=== PATIENT | female | born 1980 | race Caucasian/White ===

== ENCOUNTER 2024-07-11 16:27 | Emergency (ER) | payer OTHER, SELFPAY ==
[2024-07-11 16:38] VITALS: BP 121/94; PULSE 110; TEMP 37.1; O2SAT 99; BMI 35.2
--- NOTE | 2024-07-11 16:42 | XR_ITS ---
The [address] [address] Patient Name: LIAM ESCOBAR MRN: [id number] date: 1980 Sex: F Assigned Patient Location: ER Current Patient Location: ED.MAIN Accession/Order Number: [id number] Exam Date: 07/11/2024 16:50 Report Date: 07/11/2024 17:31 At the request of: RAMANDEEP PAYTON Procedure: XR toe RT min 2V EXAM: XR toe RT min 2V HISTORY: infection COMPARISON: None. TECHNIQUE: 3 views of the right great toe FINDINGS: No acute fracture seen. Joint alignment is normal. Joint spaces are preserved. Soft tissue swelling is seen about the right great toe. No significant soft tissue gas is seen. No definite radiographic evidence for osteomyelitis is seen. However, please note MRI is more sensitive for detection of osteomyelitis. XR/XR toe RT min 2V IMPRESSION: No acute fracture. Soft tissue swelling is seen about the right great toe. No significant soft tissue gas is seen. No definite radiographic evidence for osteomyelitis is seen. However, please note MRI is more sensitive for detection of osteomyelitis. Electronically authenticated by: KRYSTIAN PALAFOX Date: 07/11/2024 17:31
--- NOTE | 2024-07-11 17:34 | ED.GENADUL1 ---
HPI HPI - General Adult General Chief complaint: Wound/Laceration Stated complaint: POSS INFECTED TOE Time Seen by Provider: 07/11/24 16:33 Source: patient Mode of arrival: walk-in Limitations: no limitations History of Present Illness HPI narrative: 44-year-old female presents here with a chief complaint of infected right great toe. Patient was cutting her toenails last week and excellently cut the tip of her toe with her sister. Patient's right toe is red and infected. She does have a podiatry appointment scheduled for the of this month. She denies any fevers or chills. She is type II diabetic. Mild purulent drainage is noted from the area. Related Data Home Medications ?Medication ?Instructions ?Recorded ?Confirmed Wellbutrin 07/11/24 cariprazine 1.5 mg capsule 1.5 mg PO DAILY 07/11/24 07/11/24 (Vraylar) empagliflozin 25 mg tablet 25 mg PO DAILY 07/11/24 07/11/24 (Jardiance) lisinopril 10 1 tab PO DAILY 07/11/24 07/11/24 mg-hydrochlorothiazide 12.5 mg tablet metformin 500 mg tablet 500 mg PO BID 07/11/24 07/11/24 methadone 10 mg tablet 20 mg PO DAILY 07/11/24 07/11/24 Previous Rx's ?Medication ?Instructions ?Recorded cephalexin 500 mg capsule 500 mg PO TID 10 days #30 caps 07/11/24 ibuprofen 800 mg tablet 800 mg PO Q8H PRN pain #30 tabs 07/11/24 Allergies Allergy/AdvReac Type Severity Reaction Status Date / Time amoxicillin (From Amoxil) Allergy Anaphylaxis Verified 07/11/24 16:34 codeine Allergy Hives Verified 07/11/24 16:34 Opioid HPI Opioid Management Most Recent Opioid Data: No Data to Display Review of Systems ROS Narrative All Systems are negative except as noted/marked.All systems reviewed and otherwise negative PFSH PFSH Social History Little interest or pleasure in doing things: not at all Feeling down, depressed, or hopeless: not at all Exam Narrative Exam Narrative: Nurses note and vital signs reviewed and patient is not hypoxic. General: The patient appears well and in no apparent distress. Patient is resting comfortably on cart. Skin: Warm, dry, no pallor noted. There is no rash noted. Head: Normocephalic, atraumatic Eye: Normal conjunctiva, no drainage, EOMI. PERRL Ears, Nose, Mouth, and Throat: oral mucosa is moist. Nares patent. Mouth without vesicles. Ear canals patent. Tm's without Erythema Musculoskeletal: redness, swelling infected ingrown nail to right great toe, mild purulent drainage. The patient has no evidence of calf tenderness, no pitting edema, symmetrical pulses noted bilaterally Neurological: A&O x4, normal speech Psychiatric: Cooperative Constitutional Vital Signs, click to edit/add: Last Vital Signs Temp 98.8 F 07/11/24 16:38 Pulse 110 H 07/11/24 16:38 Resp 16 07/11/24 16:38 BP 121/94 H 07/11/24 16:38 Pulse Ox 99 07/11/24 16:38 O2 Del Method Room Air 07/11/24 16:38 Course Vital Signs Vital signs: Vital Signs Temperature 98.8 F 07/11/24 16:38 Pulse Rate 110 H 07/11/24 16:38 Respiratory Rate 16 07/11/24 16:38 Blood Pressure 121/94 H 07/11/24 16:38 Pulse Oximetry 99 07/11/24 16:38 Oxygen Delivery Method Room Air 07/11/24 16:38 Temperature 98.8 F 07/11/24 16:38 Pulse Rate 110 H 07/11/24 16:38 Respiratory Rate 16 07/11/24 16:38 Blood Pressure 121/94 H 07/11/24 16:38 Pulse Oximetry 99 07/11/24 16:38 Oxygen Delivery Method Room Air 07/11/24 16:38 Medical Decision Making [facility] Narrative Medical decision making narrative: Patient presented here with a chief complaint of a infected right great toe as well as paronychia. Patient was cutting her toenails last week and excellently cut the tip of her toenail. Purulent drainage was noted. X-rays were performed and showed no acute air. I was able to incise and drain the toe. Right great toe was anesthetized 1% lidocaine solution locally, small incision made with an 11 blade, purulent drainage was then expressed out of the area. Wound was vigorously cleaned irrigated with Hibiclens normal saline dressing was applied by nursing staff. Patiently placed on Keflex. Follow-up with her podiatry as scheduled on the 12th of this month. Patient agrees with plan of care. Differential Diagnosis Differential Diagnosis: cellulitis, paronychia, Medical Records Medical records reviewed: Yes I reviewed the patient's medical records Imaging Data toe: Radiologist's impression: ITS Impressions Toe X-Ray 07/11/24 16:42 IMPRESSION: No acute fracture. Soft tissue swelling is seen about the right great toe. No significant soft tissue gas is seen. No definite radiographic evidence for osteomyelitis is seen. However, please note MRI is more sensitive for detection of osteomyelitis. Electronically authenticated by: KRYSTIAN PALAFOX Date: 07/11/2024 17:31 Discharge Plan Discharge Chief Complaint: Wound/Laceration Clinical Impression: Abscess Patient Disposition: Home, Self-Care Time of Disposition Decision: 17:32 Condition: Good Prescriptions / Home Meds: New ibuprofen 800 mg tablet 800 mg PO Q8H PRN (Reason: pain) Qty: 30 0RF cephalexin 500 mg capsule 500 mg PO TID 10 Days Qty: 30 0RF No Action metformin 500 mg tablet 500 mg PO BID Jardiance 25 mg tablet 25 mg PO DAILY lisinopril-hydrochlorothiazide 10-12.5 mg tablet 1 tab PO DAILY Patient Comments: uncertain of dose Vraylar 1.5 mg capsule 1.5 mg PO DAILY Patient Comments: uncertain of dose Wellbutrin Rx Instructions: 150MG in the morning, 100mg at night methadone 10 mg tablet 20 mg PO DAILY Print Language: Vietnamese Instructions: Abscess (ED) Additional Instructions: follow up with Podiatry as schedued Referrals: Physician,Non-Staff, MD [Primary Care Provider] - 1 week
[2024-07-11] MEDS: ADACEL DIPH,PERTUSS(ACELL),TET VAC/PF 0.5 ML ADULT SYRINGE IM (17:38)
[2024-07-11] MEDS: LIDOCAINE HCL 1% 100 MG/10 ML MDV INJ (17:39)
== END 2024-07-11 17:52 | disposition home or self-care (01) ==
PROVIDERS: Emergency Provider Emergency Medicine
DX: L60.0 Ingrowing nail (principal); L03.031 Cellulitis of right toe; E11.9 Type 2 diabetes mellitus without complications; Z79.84 Long term (current) use of oral hypoglycemic drugs; Z23 Encounter for immunization
CPT/HCPCS: 10060; 73660; 87070; 87075; 90471; 90715; 99284

== ENCOUNTER 2024-08-30 07:35 | Outpatient (OUT) | payer OTHER, SELFPAY ==
--- OUTSIDE RECORDS SUMMARY | 2024-08-30 07:39 | XMS_ITS | CCD ---
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 H BQB #### [facility] [address] Reference Lab Test Reference Range Comment Normal . [facility] ([place]) Comment on above: Result Comment: The reportable range for this assay is 10 IU/mL to 1 billion IU/mL. Performed at: [facility] [employer] [id number] Rn Traveling: Naomi Croft MD, Phone: [phone] Performed By: #### H BQB #### [facility] [address] HBV e Ab SerPl Ql 01-17 HBV e Ab IA Ql Negative Normal Negative [facility] ([place]) Comment on above: Result Comment: Perf ormed at: [facility] [employer] [id number] Rn Traveling: Johnathon Neville PhD, Phone: [phone] Performed By: #### 1 3953-5 #### [facility] [address] HBV e Ag SerPl Ql IA01-17 HBV e Ag IA Ql Negative Normal Negative [facility] ([place]) Comment on above: Result Comment: Perf ormed at: [facility] [id number] Rn Traveling: Johnathon Neville PhD, Phone: [phone] Performed By: #### P TINR #### [facility] [address] [place], [place] [id number] HCV Genotyping Non Reflexon 01-03-2022 HCV genotype PARIS+probe Nom 1a Normal . [facility] ([place]) Comment on above: Performed By: #### P TINR #### [facility] [address] [place], [place] [address] Please note: Comment Normal . [facility] ([place]) Comment on above: Result Comment: This test was developed and its performance characteristics determined by [employer]. It has not been cleared or approved by the U.S. Food and Drug Administration. The FDA has determined that such clearance or approval is not necessary. This test is used for clinical purposes. It should not be regarded as investigational or for research. Performed at: [facility] [id number] Rn Traveling: Naomi Croft MD, Phone: [phone] Performed By: #### P TINR #### [facility] [address] [place] [address] HBV core Ab SerPl Ql IAon HBV core Ab IA Ql Positive Abnormal Negative [facility] ([place]) Comment on above: Result Comment: Perf ormed at: - [facility] [id number] Rn Traveling: Johnathon Neville PhD, Phone: [phone] Performed By: #### 1 3952-7 #### [facility] [address] HBV surface Ab Ser Qlon 12-05 HBV surface Ab Ql (S) Reactive Normal . [facility] ([place]) Comment on above: Result Comment: Non Reactive: Inconsistent with immunity, less than 10 mIU/mL Reactive: Consistent with immunity, greater than 9.9 mIU/mL Performed at: [address] [id number] Rn Traveling: Johnathon Neville PhD, Phone: [phone] Performed By: #### 2 2322-2 #### [address] [address] HCV Ab Ser Qlon 12-31-2021 HCV Ab Ql (S) >11.0 Abnormal 0.0-0.9 [facility] ([place]) Comment on above: Result Comment: Nega tive: < 0.8 Indeterminate: 0.8 - 0.9 Positive: > 0.9 HCV antibody alone does not differentiate between previous resolved infection and active infection. The CDC and current clinical guidelines recommend that a positive HCV antibody result be followed up with an HCV RNA test to support the diagnosis of acute HCV infection. [facility] offers Hepatitis C Virus (HCV) RNA, Diagnosis, PARIS (334505) and Hepatitis C Virus (HCV) Antibody with reflex to Quantitative Real-time PCR (271687). Performed at: [address] [id number] Rn Traveling: Johnathon Neville PhD, Phone: [phone] Performed By: #### 1 6128-1 #### [address] [address] HCV RT-PCR Quant (Non-Graph) on 12-31-2021 HCV RNA PARIS+probe [Log units/Vol] 5.[address] [facility] ([place]) Comment on above: Result Comment: Resu lt Units: log10 IU/mL Performed By: #### P TINR #### [facility] [address] [place], [place] [address] (480) HCV RNA PARIS+probe Qn 977259 IU/mL Normal . [facility] ([place]) Comment on above: Performed By: #### P TINR #### [facility] [address] [place] [address] Test performance information Steven (Unsp spec) Comment Normal . [facility] ([place]) Comment on above: Result Comment: The quantitative range of this assay is 15 IU/mL to 100 million IU/mL. Performed at: [facility] [employer] [id number] Rn Traveling: Naomi Croft MD, Phone: [phone] Performed By: #### P TINR #### [facility] [address] [place], [place] [address] HIV Ab/p24 Ag w/ Rflx [id number] on 12-31-2021 HIV 1+2 Ab+HIV1 p24 Ag IA Ql Non-Reactive Normal Non Reactive [facility] ([place]) Comment on above: Result Comment: HIV Negative HIV-1/HIV-2 antibodies and HIV-1 p24 antigen were NOT detected. There is no laboratory evidence of HIV infection. Performed at: [facility] [employer] [phone] Rn Traveling: Johnathon Neville PhD, Phone: [phone] Performed By: #### H IV #### [address] [address] Hep B Surface Antigenon 12-05 HBV surface Ag IA Ql Negative Normal Negative [facility] ([place]) Comment on above: Result Comment: Perf ormed at: [facility] [employer] [id number] Rn Traveling: Johnathon Neville PhD, Phone: [phone] Performed By: #### H BSAGA #### [address] [address] ALT (SGPT) ser/plason 2021 ALT [Catalytic activity/Vol] 50 U/L 10-54 [facility] Work Phone: Absolute lymphocyte counton 12-30-2021 Lymphocytes Auto (Unsp spec) [#/Vol] 3.5 10*3/uL 1.10-4.80 [facility] Work Phone: Albumin [Mass/volume] in Ser um or Plasmaon 12-30-2021 Albumin [Mass/Vol] 3.9 g/dL 3.4-4.8 [facility] Work Phone: Albumin/Globulin [Mass Ratio ] in Serum or Plasmaon 12-30-2021 Albumin/Globulin [Mass ratio] 0.9 {ratio} 1.1-2.2 [facility] Work Phone: Alkaline phosphatase [Enzyma tic activity/volume] in Serum or Plasmaon 12-30-2021 ALP [Catalytic activity/Vol] 106 U/L 42-121 [facility] Work Phone: Aspartate aminotransferase [ Enzymatic activity/volume] in Serum or Plasmaon 12-30-2021 AST [Catalytic activity/Vol] 53 U/L 10-41 [facility] Work Phone: Basophils Auto (Bld) [#/Vol] on 12-30-2021 Basophils (Bld) [#/Vol] 0.1 10*3/uL 0.00-0.20 [facility] Work Phone: Basophils/100 WBC Auto (Bld) on 12-30-2021 Basophils/100 WBC (Bld) 1.0 % 0.0-1.5 [facility] Work Phone: Bilirubin.total [Mass/volume ] in Serum or Plasmaon 12-30-2021 Bilirubin [Mass/Vol] 0.9 mg/dL 0.3-1.5 [facility] Work Phone: Blood prothrombin time (PT) by coagulation assayon 12-30-2021 PT Coag (Bld) [Time] 13.0 s 9.5-12.9 [facility] Work Phone: CBC W Auto Differential pane l (Bld)on 12-30-2021 Basophils (Bld) [#/Vol] 0.1 10*3/uL Normal 0.00-0.20 [facility] ([place]) Comment on above: Performed By: #### 5 7021-8 #### [facility] [address] [place] [address] Basophils/100 WBC (Bld) 1.0 % Normal 0.0-1.5 [facility] ([place]) Comment on above: Performed By: #### 5 7021-8 #### [facility] [address] [place] [address] CBC W Ordered Manual Differential panel (Bld) NO Normal [facility] ([place]) Comment on above: Performed By: #### 5 7021-8 #### [facility] [address] [place] [address] Eosinophils (Bld) [#/Vol] 0.2 10*3/uL Normal 0.00-0.33 [facility] ([place]) Comment on above: Performed By: #### 5 7021-8 #### [facility] [address] [place] [address] Eosinophils/100 WBC (Bld) 2.3 % Normal 0.0-3.0 [facility] ([place]) Comment on above: Performed By: #### 5 7021-8 #### [facility] [address] [place] [address] Erythrocyte distribution width (RBC) [Ratio] 14.6 % High 10.9-14.3 [facility] ([place]) Comment on above: Performed By: #### 5 7021-8 #### [facility] [address] [place] [address] Hematocrit (Bld) [Volume fraction] 40.6 % Normal 36.0-44.0 [facility] ([place]) Comment on above: Performed By: #### 5 7021-8 #### [facility] [address] [place] [address] Hemoglobin (Bld) [Mass/Vol] 13.5 g/dL Normal 12.0-15.0 [facility] ([place]) Comment on above: Performed By: #### 5 7021-8 #### [facility] [address] [place] [address] Lymphocytes Auto (Unsp spec) [#/Vol] 3.5 10*3/uL Normal 1.10-4.80 [facility] ([place]) Comment on above: Performed By: #### 5 7021-8 #### [facility] [address] [place] [address] Lymphocytes/100 WBC (Bld) 36.9 % Normal 24.0-44.0 [facility] ([place]) Comment on above: Performed By: #### 5 7021-8 #### [address] [address] MCH (RBC) [Entitic mass] 25.8 pg Low 28.0-34.0 [facility] ([place]) Comment on above: Performed By: #### 5 7021-8 #### [address] [address] MCHC (RBC) [Mass/Vol] 33.1 g/dL Normal 33.0-37.0 [facility] ([place]) Comment on above: Performed By: #### 5 7021-8 #### [address] [address] MCV (RBC) [Entitic vol] 77.9 fL Low 80.0-100.0 [facility] ([place]) Comment on above: Performed By: #### 5 7021-8 #### [facility] [address] [place] [address] Monocytes (Bld) [#/Vol] 0.6 10*3/uL Normal 0.20-0.70 [facility] ([place]) Comment on above: Performed By: #### 5 7021-8 #### [address] [address] Monocytes/100 WBC (Bld) 6.3 % Normal 3.4-9.0 [facility] ([place]) Comment on above: Performed By: #### 5 7021-8 #### [address] [address] Neutrophils (Bld) [#/Vol] 5.1 10*3/uL Normal 1.83-8.70 [facility] ([place]) Comment on above: Performed By: #### 5 7021-8 #### [address] [address] Neutrophils/100 WBC (Bld) 53.5 % Normal 40.0-74.0 [facility] ([place]) Comment on above: Performed By: #### 5 7021-8 #### [facility] [address] [place] [address] Platelet mean volume (Bld) [Entitic vol] 9.5 fL Normal 7.4-10.4 [facility] ([place]) Comment on above: Performed By: #### 5 7021-8 #### [facility] [address] [place] [address] Platelets (Bld) [#/Vol] 181 10*3/uL Normal 150-450 [facility] ([place]) Comment on above: Performed By: #### 5 7021-8 #### [facility] [address] [place] [address] RBC (Bld) [#/Vol] 5.21 10*6/uL High 4.00-4.90 [facility] ([place]) Comment on above: Performed By: #### 5 7021-8 #### [address] [address] WBC (Bld) [#/Vol] 9.6 10*3/uL Normal 4.5-11.0 [facility] ([place]) Comment on above: Performed By: #### 5 7021-8 #### [address] [address] Carbon dioxide, total [Moles /volume] in Serum or Plasmaon 12-30-2021 CO2 [Moles/Vol] 26 mmol/L [facility] Work Phone: Chloride [Moles/volume] in S sim or Plasmaon 12-30-2021 Chloride [Moles/Vol] 94 mmol/L 98-107 [facility] Work Phone: Comprehensive metabolic 2000 panelon 12-30-2021 Albumin [Mass/Vol] 3.9 g/dL Normal 3.4-4.8 [facility] ([place]) Comment on above: Performed By: #### 2 4323-8 #### [facility] [address] [place] [address] Albumin/Globulin [Mass ratio] 0.9 {ratio} Low 1.1-2.2 [facility] ([place]) Comment on above: Performed By: #### 2 4323-8 #### [facility] [address] [place] [address] ALP [Catalytic activity/Vol] 106 U/L Normal 42-121 [facility] ([place]) Comment on above: Performed By: #### 2 4323-8 #### [facility] [address] [place] [address] ALT [Catalytic activity/Vol] 50 U/L Normal 10-54 [facility] ([place]) Comment on above: Performed By: #### 2 4323-8 #### [facility] [address] [place] [address] Anion gap [Moles/Vol] 9.0 mmol/L Normal 3-11 [facility] ([place]) Comment on above: Performed By: #### 2 4323-8 #### [facility] [address] [place] [address] AST [Catalytic activity/Vol] 53 U/L High 10-41 [facility] ([place]) Comment on above: Performed By: #### 2 4323-8 #### [facility] [address] [place] [address] Bilirubin [Mass/Vol] 0.9 mg/dL Normal 0.3-1.5 [facility] ([place]) Comment on above: Performed By: #### 2 4323-8 #### [facility] [address] [place] [address] Calcium [Mass/Vol] 9.0 mg/dL Normal 8.5-10.5 [facility] ([place]) Comment on above: Performed By: #### 2 4323-8 #### [address] [address] Chloride [Moles/Vol] 94 mmol/L Low 98-107 [facility] ([place]) Comment on above: Performed By: #### 2 4323-8 #### [address] [address] CO2 [Moles/Vol] 26 mmol/L Normal 21-31 [facility] ([place]) Comment on above: Performed By: #### 2 432-8 #### [address] [address] Creatinine [Moles/Vol] 0.7 mg/dL Normal 0.4-1.0 [facility] ([place]) Comment on above: Performed By: #### 2 4322-8 #### [address] [address] Creatinine and Glomerular filtration rate.predicted panel (S/P/Bld) 111 mL/min Normal >60 [facility] ([place]) Comment on above: Performed By: #### 2 4323-8 #### [address] [address] GFR/1.73 sq M.predicted among non-blacks MDRD (S/P/Bld) [Vol rate/Area] 92 mL/min/{1.73_m2} Normal >60 [facility] ([place]) Comment on above: Performed By: #### 2 4323-8 #### [address] [address] Globulin (S) [Mass/Vol] 4.2 g/dL High 1.9-3.9 [facility] ([place]) Comment on above: Performed By: #### 2 4323-8 #### [facility] [address] [place] [address] Glucose [Mass/Vol] 329 mg/dL High 70-99 [facility] ([place]) Comment on above: Performed By: #### 2 4323-8 #### [facility] [address] [place] [address] Potassium [Moles/Vol] 3.4 mmol/L Low 3.6-5.0 [facility] ([place] Comment on above: Performed By: #### 2 4323-8 #### [facility] [address] [place] [address] Protein [Mass/Vol] 8.1 g/dL High 5.9-7.8 [facility] ([place]) Comment on above: Performed By: #### 2 4323-8 #### [facility] [address] [place] [address] Sodium [Moles/Vol] 129 mmol/L Low 135-145 [facility] ([place] Comment on above: Performed By: #### 2 4323-8 #### [facility] [address] [place] [address] Urea nitrogen [Mass/Vol] 6 mg/dL Low 8-21 [facility] ([place] Comment on above: Performed By: #### 2 4323-8 #### [facility] [address] [place] [address] Creatinine and Glomerular fi ltration rate.predicted panel (S/P/Bld)on 12-30-2021 GFR/1.73 sq M.predicted MDRD (S/P/Bld) [Vol rate/Area] 111 mL/min/{1.73_m2} >60 [facility] Work Phone: Eosinophils Auto (Bld) [#/Vo l]on 12-30-2021 Eosinophils (Bld) [#/Vol] 0.2 10*3/uL 0.00-0.33 [facility] Work Phone: Eosinophils/100 WBC Auto (Bl d)on 12-30-2021 Eosinophils/100 WBC (Bld) 2.3 % 0.0-3.0 [facility] Work Phone: Erythrocyte distribution wid th Auto (RBC) [Ratio]on 12-30-2021 Erythrocyte distribution width (RBC) [Ratio] 14.6 % 10.9-14.3 [facility] Work Phone: Estimated glomerular filtrat ion rate (GFR) non- Americanon 12-30-2021 GFR/1.73 sq M.predicted among non-blacks MDRD (S/P/Bld) [Vol rate/Area] 92 mL/min/{1.73_m2} >60 [facility] Work Phone: Hematocrit Auto (Bld) [Volum e fraction]on 12-30-2021 Hematocrit (Bld) [Volume fraction] 40.6 % 36.0-44.0 [facility] Work Phone: Hemoglobin [Mass/volume] in Bloodon 12-30-2021 Hemoglobin (Bld) [Mass/Vol] 13.5 g/dL 12.0-15.0 [facility] Work Phone: Lymphocytes/100 WBC Auto (Bl d)on 12-30-2021 Lymphocytes/100 WBC (Bld) 36.9 % 24.0-44.0 [facility] Work Phone: MCH Auto (RBC) [Entitic mass ]on 12-30-2021 MCH (RBC) [Entitic mass] 25.8 pg 28.0-34.0 [facility] Work Phone: MCHC Auto (RBC) [Mass/Vol]on 12-30-2021 MCHC (RBC) [Mass/Vol] 33.1 g/dL 33.0-37.0 [facility] Work Phone: MCV (mean corpuscular volume ) determinationon 12-30-2021 MCV (RBC) [Entitic vol] 77.9 fL 80.0-100.0 [facility] Work Phone: Miscellaneous Batteryon 12-[address] [facility] ([place] Comment on above: Order Comment: HEP C VIRUS QUANT [id number] cpt 21619 Result Comment: INCO RRECT TEST Performed By: #### P TINR #### [address] [address] [facility] ([place] Comment on above: Order Comment: HEP C VIRUS QUANT [id number] cpt [id number] Result Comment: INCO RRECT TEST Performed By: #### P TINR #### [facility] [address] [place] [address] Result [facility] ([place]) Comment on above: Order Comment: HEP C VIRUS QUANT [id number] cpt [id number] Result Comment: INCO RRECT TEST Performed By: #### P TINR #### [address] [address] [address] [facility] ([place]) Comment on above: Order Comment: HEP C VIRUS QUANT [id number] cpt 20105 Result Comment: INCO RRECT TEST Performed By: #### P TINR #### [facility] [address] [place] [address] Monocytes Auto (Bld) [#/Vol] on 12-30-2021 Monocytes (Bld) [#/Vol] 0.6 10*3/uL 0.20-0.70 [facility] Work Phone: Monocytes/100 WBC Auto (Bld) on 12-30-2021 Monocytes/100 WBC (Bld) 6.3 % 3.4-9.0 [facility] Work Phone: Neutrophils Auto (Bld) [#/Vo l]on 12-30-2021 Neutrophils (Bld) [#/Vol] 5.1 10*3/uL 1.83-8.70 [facility] Work Phone: Neutrophils/100 WBC Auto (Bl d)on 12-30-2021 Neutrophils/100 WBC (Bld) 53.5 % 40.0-74.0 [facility] Work Phone: Platelet mean volume Auto (B ld) [Entitic vol]on 12-30-2021 Platelet mean volume (Bld) [Entitic vol] 9.5 fL 7.4-10.4 [facility] Work Phone: Platelet poor plasma interna tional normalized ratio (INR) by coagulation assay (relaton 12-30-2021 INR Coag (PPP) [Relative time] 1.17 {INR} 0.80-2.00 [facility] Work Phone: Platelets Auto (Bld) [#/Vol] on 12-30-2021 Platelets (Bld) [#/Vol] 181 10*3/uL 150-450 [facility] Work Phone: Potassium [Moles/volume] in Serum or Plasmaon 12-30-2021 Potassium [Moles/Vol] 3.4 mmol/L 3.6-5.0 [facility] Work Phone: Prothrombin Time INR w/o Cou mon 12-30-2021 INR Coag (PPP) [Relative time] 1.17 {INR} Normal 0.80-2.00 [facility] ([place]) Comment on above: Performed By: #### P TINR #### [facility] [address] [place] [address] PT Coag (Bld) [Time] 13.0 s High 9.5-12.9 [facility] ([place]) Comment on above: Performed By: #### P TINR #### [facility] [address] [place] [address] RBC Auto (Bld) [#/Vol]on RBC (Bld) [#/Vol] 5.21 10*6/uL 4.00-4.90 [facility] Work Phone: Serum globulin measurement ( mass/volume)on 12-30-2021 Globulin (S) [Mass/Vol] 4.2 g/dL 1.9-3.9 [facility] Work Phone: Serum glucose measurement (m ass/volume)on 12-30-2021 Glucose [Mass/Vol] 329 mg/dL 70-99 [facility] Work Phone: Serum or plasma anion gap de termination (moles/volume)on 12-30-2021 Anion gap [Moles/Vol] 9.0 mmol/L 3-11 [facility] Work Phone: Serum or plasma calcium genna urement (mass/volume)on 12-30-2021 Calcium [Mass/Vol] 9.0 mg/dL 8.5-10.5 [facility] Work Phone: Serum or plasma creatinine m easurement (moles/volume)on 12-30-2021 Creatinine [Moles/Vol] 0.7 mg/dL 0.4-1.0 [facility] Work Phone: Serum or plasma sodium measu rement (moles/volume)on 12-30-2021 Sodium [Moles/Vol] 129 mmol/L 135-145 [facility] Work Phone: Serum or plasma urea nitroge n measurement (mass/volume)on 12-30-2021 Urea nitrogen [Mass/Vol] 6 mg/dL 8-21 [facility] Work Phone: Total protein bloodon 2021 Protein [Mass/Vol] 8.1 g/dL 5.9-7.8 [facility] Work Phone: US abdomen limitedon [address] [facility] [address] [place] [address] Ultrasound Report Signed Patient: VIRGILIOVANITAAmrita Wong MR#: [id number] : 1980 Acct:[id number] Age/Sex: 41 / F Admit Date: 12/30/21 Loc: [facility] Attending Dr: Maria Esther Fregoso [employer] Ordering Physician: Maria Esther Fregoso NP Date of Service: 12/30/21 Procedure(s): US abdomen limited Accession Number(s): [id number] cc: Maria Esther Fregoso NP HISTORY: Hepatitis C PHYSICIAN INDICATIONS: B19.20 Hepatitits -C. B19.20 TECHNIQUE: Ultrasound images through the gallbladder. FINDINGS: The gallbladder is normal in size and appearance. There is no wall thickening or shadowing stones identified. Biliary tree is not dilated. Common bile duct measures 5.6 mm No adjacent fluid collections are noted. Liver is enlarged measuring 16 cm in length with normal echogenicity. IMPRESSION Ultrasound Gallbladder: 1. Unremarkable appearance of the gallbladder. No gallstones identified. 2. Mildly enlarged liver. In view of history, consider Elastography. Dictated By: Hank Farrar MD DD/ 9 Signed By: Hank Farrar MD 12/30/21719 Electrical Appliance Repairer: KEVEN Normal [facility] ([place]) WBC Auto (Bld) [#/Vol]on WBC (Bld) [#/Vol] 9.6 10*3/uL 4.5-11.0 [facility] Work Phone: ED.PDOCon 10-19-2020 ED.PDOC VALDEMAR ESCOBAR TI R Female [phone] Attending provider: [facility] [id number] Fabiana Yuen 1980 40 DOS: 10/19/20 Hx/Exam - History of Present Illness Chief Complaint: LEG PAIN Location: left leg Symptom Duration: 1 Symptom Duration: Week(s) Onset of Symptoms: acute Intensity: mild-moderate Quality: cramping Episode Frequency: constant Radiations: thigh to lower leg Symptoms Improve with: none Symptoms Worse with: none Assoc Sxs/Pertinent Hx: swelling, h/o chronic low back and sciatica Patient/Family Denies: fevers, trauma, weakness, parasthesias, abd pain,b/b incont,cp,sob Additional Comments: no h/o DVT/PE, no travel/immobilizatio n/surgery/hormone replacement. + smoker. 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 - Review of Systems All Other Systems: Pertinent Positives in HPI, All Other Systems Negative Constitutional: Denies: Fever, Chills, Sweats, Weakness, Malaise Respiratory: Denies: Cough, Shortness of Breath, Wheezing Cardiovascular: Denies: Chest Pain, Palpitations, Light Headedness Gastrointestinal: Denies: Nausea, Vomiting, Abdominal Pain, Diarrhea, Constipation, Melena, Hematochezia Genitourinary: Denies: Dysuria, Frequency, Urgency, Hematuria, Incontinence, Retention Musculoskeletal: Neck Pain (chronic), Back Pain (chronic), Leg Pain. Denies: Arm Pain Skin: Denies: Rash, Lesions, Jaundice, Laceration, Abrasion, Bruising Neurological: Denies: Headache, Weakness, Numbness, Incoordination, Change in Speech, Confusion, Seizures - Past Medical History ED PMH: Yes Migraine - Past Surgical History Surgical History: Yes Other (knee surgery) - Social History Smoking Status: Current every day smoker - Physical Exam General Appearance: awake, alert, no apparent distress Eyes: PERRL, EOMI, conjunctivae clear Head, Ears, Nose, and Throat: pharynx normal, mucous membranes moist Neck: supple, full ROM Respiratory: lungs clear, no wheezes/rhonchi/rale s, no respiratory distress, no accessory muscle use Cardiovascular: regular rate, rhythm, no murmur Abdomen/GI: non tender, soft, non-distended, normal bowel sounds, no organomegaly, no pulsatile mass, no peritoneal signs Extremity Location: L leg Extremity: normal range of motion, non-tender, no calf tenderness, normal capillary refill, swelling (1-2 + pitting edema bilateral lower legs) Pulses: Radial: 2+, Dorsalis Pedis: 2+ Neurologic: no motor/sensory deficits, normal gait, normal strength, normal sensation, speech clear/fluent Psychiatric: oriented x3, calm Skin Exam: warm/dry, normal color - Source of History Source of History: Nursing Notes/Vital Signs/Triage Reviewed and Agree Source of History: Old Medical Records Reviewed Note(s) - Physician Notes Additional Notes, See Orders for Details: 10/19/20 14:59 Exam/Proc: LOWER EXT DVT LEFT Dept: ULTRASOUND INDICATION: pain swelling,sent by [facility] for DVT r/o EXAM: US LOWER EXTREMITY VEINS LIMITED/UNILATERAL/F OLLOW UP COMPARISON: TECHNIQUE: High resolution grayscale, color and Doppler evaluation performed according to protocol. FINDINGS: Included portions of the common femoral, femoral, popliteal, peroneal, and posterior tibial veins are grossly patent. Anterior tibial vein not evaluated on this exam. Impression: 1. No evidence for deep venous thrombosis in the evaluated major veins. Electronically signed by: Mp Logan DO 10/19/2020 1:52 PM CDT REPORT SIGNATURE ON FILE Electronically Signed Date/Time: 10/19/20 1352 Dictated Date/time: 10/19/20 1352 10/19/20 14:59 Patient has no reproducible tenderness on the entire left leg. She does have some mild pitting edema but this is noted on bilateral lower extremities. I suspect likely she is having radiculopathy pain from her chronic low back pain and sciatica issues. She is currently on methadone for pain management. She is advised close follow-up with her primary physician in the next few days. Return precautions discussed. EKG - EKG EKG Interpretation: Not Applicable Discharge Screen - Discharge Discharge Problem: Left leg pain Disposition: HOME/SELF CARE Additional Instructions: close follow up with your doctor next few days. If the symptoms worsen or new symptoms develop return to the Emergency Department (ED) immediately. Call your doctor for additional questions. Condition: Good Instructions: DI for Leg Pain Referrals: provider (Unknown),Unlisted [NON STAFF] - Ceasar Stewart [ACTIVE] - 2-3 Days Dictated By: CROW Washburn Dictated Date/Time:10/19/20 1354 Electronically Signed Date/Time: 10/19/20 1501 [facility] LOWER EXT DVT LEFTon 021 LOWER EXT DVT LEFT VALDEMAR ESCOBAR TI R Female [id number] Ordering physician: Fabiana Yuen LOC:ER [id number] Attending physician: 1980 40 DO S: 10/19/20 Acc#: [id number] Exam/Proc: LOWER EXT DVT LEFT Dept: ULTRASOUND INDICATION: pain swelling,sent by STAT care for DVT r/o EXAM: US LOWER EXTREMITY VEINS LIMITED/UNILATERAL/F OLLOW UP COMPARISON: TECHNIQUE: High resolution grayscale, color and Doppler evaluation performed according to protocol. FINDINGS: Included portions of the common femoral, femoral, popliteal, peroneal, and posterior tibial veins are grossly patent. Anterior tibial vein not evaluated on this exam. Impression: 1. No evidence for deep venous thrombosis in the evaluated major veins. Electronically signed by: Mp Logan DO 10/19/2020 1:52 PM CDT REPORT SIGNATURE ON FILE Electronically Signed Date/Time: 10/19/20 1352 Dictated Date/time: 10/19/20 1352 CC: [facility] ED.PDOCon 09-09-2020 ED.PDOC VALDEMAR ESCOBAR TI R Female [id number] Attending provider: PRE ER ER [id number] Dallas Mendoza 1980 40 DOS: 09/09/20 Hx/Exam - History of Present Illness Chief Complaint: DENTAL PAIN Additional Comments: Patient presents for evaluation of left-sided facial pain. Patient recently had dental extractions. She reports that her stitch started getting pulled out. Her clipped th stitch causing her to fall into her mouth. Patient is currently complaining of pain. She completed her course of Percocet and is still complaining of pain. No new facial swelling, erythema, warmth, discharge. Denies any trismus, drooling. Patient states that this is an exacerbation of her Postoperative pain. - Review of Systems All Other Systems: Pertinent Positives in HPI, All Other Systems Negative - Past Medical History ED PMH: Yes Migraine - Past Surgical History Surgical History: Yes Other (knee surgery) Comments: DENTAL SURGERY - Social History Smoking Status: Current every day smoker Living Conditions: Family - Physical Exam General Appearance: awake, alert, no apparent distress Eyes: conjunctivae clear, no scleral icterus Head, Ears, Nose, and Throat: pharynx normal, mucous membranes moist, atraumatic, other (No external erythema, warmth, trismus, drooling. Beach is normal. Stitches dangling from left side of the upper maxillary molars) Neck: no stridor, full ROM Respiratory: lungs clear, no wheezes/rhonchi/rale s, no respiratory distress Cardiovascular: regular rate, rhythm, no murmur, no gallop Abdomen/GI: non tender, soft, non-distended Neurologic: speech clear/fluent Psychiatric: calm, normal affect Skin Exam: warm/dry, normal color - Source of History Source of History: Nursing Notes/Vital Signs/Triage Reviewed and Agree Note(s) - Physician Notes Additional Notes, See Orders for Details: 09/09/20 19:40 No signs of airway emergency. No signs of infection. There is a stitch hanging down. The area of the stitch that is going to the back of the patient's mouth was trimmed. Patient was advised that she she needs to call her surgeon as her appears to have cut the stitch in such a way that it is going to ultimately lead to falling out completely. Patient was given several tablets of pain medicine. Return precautions given bedside, discharge. EKG - EKG EKG Interpretation: Not Applicable Discharge Screen - Discharge Discharge Problem: Left facial pain Disposition: HOME/SELF CARE Additional Instructions: If the symptoms worsen or new symptoms develop return to the Emergency Department (ED) immediately. Call your doctor for additional questions. Condition: Good Instructions: DI for Dental Pain Forms: DENTAL PAIN, DENTAL SERVICES, CONT, DENTAL SERVICES Prescriptions: Oxycodone W/ APAP 5-325 mg [Percocet 5 mg/325 mg Ud] 1 tab PO Q6H PRN PRN #8 tab PRN Reason: Pain Prescription Printed Referrals: Ceasar Stewart [Family Provider] - 2-3 Days (Please call your surgeon and schedule follow-up of emergency department visit as soon as available) Dictated By: Dallas Mendoza MD Dictated Date/Time:09/09/201858 Electronically Signed Date/Time: 09/09/201939 [facility] Vital Signs Date Time Vital Sign Value Performing Clinician Facility 08-14-2024 13:48-0500 Body height 152.4 cm Noah Waller DPM Work Phone: [facility] 08-14-2024 13:48-0500 Body mass index (BMI) [Ratio] 36.13 kg/m2 Noah Waller DPM Work Phone: [facility] 08-14-2024 13:48-0500 Body weight 83.92 kg Noah Waller DPM Work Phone: [facility] 08-14-2024 13:48-0500 Respiratory rate 18 /min Noah Waller DPM Work Phone: [facility] 07-17-2024 15:37-0500 Body height 152.4 cm Noah Waller DPM Work Phone: [facility] 07-17-2024 15:37-0500 Body mass index (BMI) [Ratio] 36.13 kg/m2 Noah Waller DPM Work Phone: [facility] 07-17-2024 15:37-0500 Body weight 83.92 kg Noah Waller DPM Work Phone: [facility] 07-17-2024 15:37-0500 Respiratory rate 18 /min Noah Waller DPM Work Phone: [facility] 01-15-2024 08:37-0400 Diastolic blood pressure 80 mm[Hg] Pamela Dimare PRICING INTERN.FATBACK TRIMMER Work Phone: [facility] Comment on above: right arm 01-15-2024 08:37-0400 Systolic blood pressure 123 mm[Hg] Pamela Dimare PRICING INTERN.FATBACK TRIMMER Work Phone: [facility] Comment on above: right arm 01-15-2024 08:35-0400 Body height 152.4 cm Pamela Dimare PRICING INTERN.FATBACK TRIMMER Work Phone: [facility] 01-15-2024 08:35-0400 Body mass index (BMI) [Ratio] 37.8 kg/m2 Pamela Dimare PRICING INTERN.FATBACK TRIMMER Work Phone: [facility] 01-15-2024 08:35-0400 Body weight 87.8 kg Pamela Cleaning ROBINA.FATBACK TRIMMER Work Phone: [facility] 01-15-2024 08:35-0400 Heart rate 125 /min Pamela Cleaning PRICING INTERN.FATBACK TRIMMER Work Phone: [facility] 01-15-2024 08:35-0400 SaO2% (BldA) [Mass fraction] 98 % Pamela Cleaning PRICING INTERN.FATBACK TRIMMER Work Phone: [facility] Encounters Encounter Date Encounter Type Care Provider Facility Start: 08-14-2024 End: 08-14-2024 Bamboo flowsheet Noah Waller DPM Work Phone: [facility] Start: 08-14-2024 End: 08-14-2024 Bamboo flowsheet Noah Waller DPM Work Phone: [facility] Start: 08-14-2024 End: 08-14-2024 ambulatory NOAH WALLER Not Available Start: 08-14-2024 End: 08-14-2024 Office outpatient visit 15 minutes Noah Waller DPM Work Phone: [facility] Comment on above: Abscess of toe, righ t (Primary Dx); Type 2 diabetes mellitus without complication, unspecified whether exterminator termite insulin use ([facility]); Onychocryptosis; Toe pain, right Start: 07-17-2024 End: 07-17-2024 ambulatory NOAH WALLER Not Available Start: 07-17-2024 End: 07-17-2024 Office outpatient new 30 minutes Noah Waller DPM Work Phone: [facility] Comment on above: Onychocryptosis (Juli chencho Dx); Toe pain, right; Abscess of toe, right; Type 2 diabetes mellitus without complication, unspecified whether exterminator termite insulin use (CMS/HCC) Start: 07-17-2024 End: 07-17-2024 Bamboo flowsheet Noah Waller DPM Work Phone: [facility] Start: 07-17-2024 End: 07-17-2024 Bamboo flowsheet Noah A Sridhar DPM Work Phone: [facility] Start: 04-04-2024 End: 04-04-2024 Telephone encounter Pamela Dimroney PRICING INTERN.FATBACK TRIMMER Work Phone: Neurology Start: 04-03-2024 End: 04-03-2024 Telephone encounter Pamela Dimroney PRICING INTERN.FATBACK TRIMMER Work Phone: Neurology Comment on above: Medication Authoriza tion Start: 02-20-2024 Telephone encounter Madison Henderson MD Work Phone: Neurology Comment on above: Appointment Start: 02-01-2024 ambulatory Pamela Dimare PRICING INTERN.FATBACK TRIMMER Work Phone: Neurology Comment on above: Thank you Start: 02-01-2024 Telephone encounter Pamela Gurmeet are PRICING INTERN.FATBACK TRIMMER Work Phone: Neurology Comment on above: Opened In Error Start: 01-31-2024 ambulatory Pamela Dimare PRICING INTERN.FATBACK TRIMMER Work Phone: Neurology Comment on above: [employer] Start: 01-17-2024 Telephone encounter Pamela Gurmeet are PRICING INTERN.FATBACK TRIMMER Work Phone: Neurology Comment on above: Insurance Authorizat ion Start: 01-15-2024 End: 01-15-2024 ambulatory PAMELA DIMARE Facility:[facility] Start: 01-15-2024 End: 01-15-2024 Patient encounter procedure Pamela Hermila PRICING INTERN.FATBACK TRIMMER Work Phone: Neurology Comment on above: Intractable migraine with aura without status migrainosus (Primary Dx); Numbness and tingling; Diplopia; Headache after cough Start: 01-16-2022 End: 01-16-[address] Maya Facility:[facility] Start: 12-30-2021 End: 12-30-2021 ambulatory Maria Esther Fregoso Facility:[facility] Start: 12-30-2021 End: 12-30-2021 Patient encounter procedure KASANDRA Fregoso Work Phone: [facility] Start: 01-24-2018 End: 01-24-2018 ambulatory UNKNOWN PROVIDER Facility:[facility] Start: 09-05-2013 End: 09-05-2013 Telephone encounter Phil Srinivasan Vannessa DO Work Phone: Ambulatory Surgery Comment on above: Post Op Procedures Date Procedure Procedure Detail Performing Clinician Start: 01-24-2018 EXCISION SERVICE REQ [facility] UNKNOWN PROVIDER Start: 05-20-2008 Mammography Phil paez DO Work Phone: Plan of Treatment Date Care Activity Detail Author Start: 05-03-2032 Urine microalbumin profile DTaP,Tdap,Td Vaccine (3 - Td or Tdap) [facility] Start: 12-27-2026 Diabetes Screening Diabetes Screenin g [facility] Start: 04-06-2024 Influenza vaccination [facility] Start: 2024 Lipid panel Lipid Screening [facility] Start: 2024 Screening for malign ant neoplasm of colon [facility] Start: 02-25-2024 End: 02-25-2024 ambulatory 02/25/2024 12:30 PM EDT Procedure Neurology [address] [place] [address] Numbness and tingling [R20.0, R20.2] Neurology Comment on above: Numbness and tinglin g [R20.0, R20.2] Start: 02-15-2024 End: 02-15-2024 Patient encounter procedure 02/15/2024 1:30 PM EDT Appointment [facility] [address] [place] [address] Headache, chronic, new features or increased frequency [facility] Comment on above: Headache, chronic, n ew features or increased frequency Start: 01-28-2024 End: 01-28-2024 Patient encounter procedure 01/28/2024 1:00 PM EDT Office Visit [facility]hthal[facility] [address] [place] [id number] Renetta Rivero, OD [address] [place], [place] [address] My vision is getting worse tung at night. Ophthalmology Comment on above: My vision is getting worse tung at night. Start: 04-06-2023 Covid-19 Vaccine ( season) Covid-19 Vaccine ( season) [facility] Start: 04-06-2021 Influenza vaccination INFLUENZ A (Season Ended) [facility] Start: 06-11-2020 Urine microalbumin profile DTAP,TDAP,TD (2 - Td or Tdap) [facility] Start: 2019 Mammography MAMMOGRAM [facility] Start: 2019 Screening for malign ant neoplasm of breast Mammogram Screening [facility] Start: 11-22-2014 PAP TESTING PAP TESTING [facility] Start: 11-22-2014 Screening for malign ant neoplasm of cervix Cervical Cancer Screening [facility] Start: 05-20-2013 HPV TESTING HPV TESTING [facility] Start: 1998 Hepatitis B Vaccine (1 of 3 - 19+ 3-dose series) Hepatitis B Vaccine (1 of 3 - 19+ 3-dose series) [facility] Start: 1997 Anxiety Screening Anxiety Screening [facility] Start: 1997 Depression Screening Depression Scre ening [facility] Start: 1997 HEPATITIS C SCREENING HEPATITIS C [facility] Start: 1997 Hepatitis C screening Hepatitis C [facility] Start: 1991 Adult depression screening assessment [facility] Start: 1985 Pneumococcal vaccination Pneum ococcal Vaccine (1 of 2 - PCV) [facility] End: 01-14-2025 EMG(NEURO/NI) EMG(NEURO/NI) EMG Routine Numbness and tingling 1 Occurrences starting 01/15/2024 until 01/14/2025 [facility] Comment on above: 1 Occurrences starti ng 01/15/2024 until 01/14/2025 Hepatitis B virus surface Ag [Units/volume] in Serum [facility] Work Phone: Hepatitis C virus Ab [Presence] in Serum [facility] Work Phone: Hepatitis C virus genotype [Identifier] in Serum or Plasma by [place] with probe detection [facility] Work Phone: Hepatitis C virus RN A [Log #/volume] (viral load) in Unspecified specimen by [place] with probe detection [facility] Work Phone: Hepatitis C virus RN A [log units/volume] (viral load) in Unspecified specimen by [place] with probe detection [facility] Work Phone: HIV 1+2 Ab [Presence ] in Unspecified specimen by Immunoassay [facility] Work Phone: Laboratory data interpretation [facility] Work Phone: End: 02-13-2025 MR Brain WO and W contrast IV MRI BRAIN WO/W IVCON Radiology Routine Intractable migraine with aura without status migrainosus 1 Occurrences starting 01/15/2024 until 02/13/2025 [facility] Work Phone: Comment on above: 1 Occurrences starti ng 01/15/2024 until 02/13/2025 Immunizations Immunization Date Immunization Notes Care Provider Kaitlynn hernandez 05-03-2022 influenza virus vacc ine, unspecified formulation Pamela Cleaning APRN.CNP Work Phone: [facility] 06-12-2013 influenza virus vacc ine, unspecified formulation Phil Hurd DO Work Phone: [facility] 08-02-2012 influenza virus vacc ine, unspecified formulation Phil Hurd DO Work Phone: [facility] 06-11-2010 tetanus toxoid, redu thiago diphtheria toxoid, and acellular pertussis vaccine, adsorbed Phil Hurd DO Work Phone: [facility] Payers Date Payer Category Payer Private Health Insurance [facility] MEDICAID [id number] 2022 Medicaid [facility] MEDICAID ON LICENSE OF [facility] PLAN MEDICAID [facility] [id number] 2022-Present [phone] [address] [place] [address] Medicaid [id number] 2022 Medicaid [id number] 2021 Medicaid [id number] 2021 Self-pay [id number] 2014 Medicaid [id number] 2013 Medicaid [employer] [id number] 2013-2016 Medicaid [id number] 2011 Private Health Insurance [employer] A ETNA CHOICE POS II [id number] 2011-2016 POS [id number] 2008 Unknown [id number] 1980 Unknown [id number] 1980 Unknown [id number] 1980 Unknown [id number] Unknown [id number] Unknown [id number] Social History Date Type Detail Facility Start: 08-18-2013 Tobacco smoking status NHIS Current every day smoker [facility] Work Phone: History of tobacco use Cigarette Smoker C [facility] Work Phone: Start: 08-18-2013 End: 01-15-2024 Cigarettes smoked current (pack per day) - Reported [facility] Start: 08-18-2013 Tobacco use and exposure Never used [facility] Work Phone: Start: 08-18-2013 End: 03-19-2022 Alcohol intake Current drinker of alcohol (finding) [facility] Start: 08-18-2013 Tobacco Comment 3-4 ciggarettes daily [facility] Start: 1980 End: 1980 Sex Assigned At Not on file [facility] Start: 1980 Sex Assigned At Female [facility] Work Phone: Start: 01-12-2024 End: 01-15-2024 Patient Health Questionnaire 2 item (PHQ-2) [Reported] [facility] Adult Depression Screening Assessment 6 [facility] Start: 01-09-2024 Gender identity Identifies as female gender (finding) [facility] Start: 01-09-2024 Sexual orientation Heterosexual (finding) [facility] Tobacco smoking stat us NDIS Tobacco smoking consumption unknown [facility] Start: 07-17-2024 Tobacco smoking status NHIS Ex-smoker [facility] History of tobacco use Current smoker [facility] Start: 07-17-2024 End: 08-14-2024 Alcoholic beverage intake [facility]er [facility] Procedure Code Equipment Code Equipment Origin al Text Equipment Identifier Dates two times a day. [id number] Start: 12-28-2023 Clinical Notes 08-12-2013 to 07-17-2024 Noah Waller, JOSE - 07/17/2024 3:10 PM ESTTelephone Encounter - Gabrielle Huizar RN - 04/04/2024 9:53 AM EDTTelephone Encounter - Gabrielle Huizar RN - 04/04/2024 9:53 AM EDTPatient Instructions Note Date & Type Note Facility 07-17-2024 History of Presen t illness Narrative Patient: Liam Poole : 1980 PCP: No primary care provider on file. SUBJECTIVE This is a 44 y.o. female that presents today with a CC of ingrowing right right hallux toenail Pt states problem has been present for the past few weeks. Pt has noticed positive drainage to the affected area and states pain is achey in nature. Treatments have consisted of soaking and trying to remove the ingrown nail on their own with no relief. Patient also seen in ER and was placed on Bactrim antibiotics with minimal improvement Patient has had longstanding issue with ingrowing nail and presents today for treatment Patient is type 2 diabetic with uncontrolled sugars Allergies: Not on File Past Medical History: Past Medical History: Diagnosis Date Diabetes ([facility]) Medications: Current Outpatient Medications: amitriptyline (Elavil) 10 MG tablet, Take 10 mg by mouth at bedtime, Disp: , Rfl: buPROPion SR (Wellbutrin SR) 150 MG 12 hr tablet, Take 150 mg by mouth in the morning and 150 mg before bedtime., Disp: , Rfl: Trulicity 1.5 MG/0.5ML solution auto-injector, Inject 1.5 mg as directed 1 (one) time per week, Disp: , Rfl: Vraylar 3 MG capsule, Take 1 capsule by mouth Daily, Disp: , Rfl: Social History: Social History Socioeconomic History Marital status: Unknown Spouse name: Not on file Number of children: Not on file Years of education: Not on file Highest education level: Not on file Occupational History Not on file Tobacco Use Smoking status: Former Current packs/day: 1.00 Types: Cigarettes Smokeless tobacco: Not on file Substance and Sexual Activity Alcohol use: Defer Drug use: Defer Sexual activity: Not on file Other Topics Concern Not on file Social History Narrative Not on file Social Drivers of Health Financial Resource Strain: Not on file Food Insecurity: Not on file Transportation Needs: Not on file Physical Activity: Not on file Stress: Not on file Social Connections: Not on file Intimate Partner Violence: Not on file Housing Stability: Not on file ROS: General: denies fever, chills, fatigue, malaise Gastrointestinal: denies abdominal pain, ulcers, or changes in appetite or bowel habits Musculoskeletal: denies arthritis, denies loss of strength, pain to hip, knees, back Cardiovascular: denies CP, palpitations, irregular rhythms OBJECTIVE LE EXAM: DERM: Positive erythema and positive serous sanguinous drainage from the right hallux with hair growth noted to b/l feet. VASC: Palpable pedal pulsed b/l with warm to cool tibia to toes b/l NEURO: 5.07 [place] Keven monofilament test intact to digits and forefoot bilaterally 125Hz tuning fork diminished to 1st MPJ bilaterally ORTHO: Ankle ROM less than 10 degrees b/l. Positive pain on palpation to right hallux ASSESSMENT 1. Onychocryptosis 2. Toe pain, right 3. Abscess of toe, right 4. Type 2 diabetes mellitus without complication, unspecified whether senior care insulin use ([facility]) PLAN Patient educated today on proper diabetic foot care including monitoring feet daily for any signs of infection openings in the skin or irregularities to both feet. Patient had a diabetic neurological exam today to both their feet and discussed proper shoe gear. Performed I and D of abcess with total removal of nail to access infection to the right toenail. Pt informed of risks and benefits of procedure including infection,pain,bleeding, reoccurance. Pt consents. Next, 3cc of xylocaine 2% plain injected into affected digit for anesthesia. The affected toe was prepped and draped in usual sterile manner and offending nail was removed with minimal blood loss and positive serosanguinous drainage noted. Wound then was flushed with NSS and DSD applied to digit. Pt is to finish prescription of Bactrim antibiotics with 5 days remaining from ER doctor Noah Waller DPM documented in this encounter [facility] 04-04-2024 Telephone encounter Note Liam Escobar (Vicente: [id number]) - [id number] AJOVY (fremanezumab-vfrm) injection 225MG/1.5ML auto-injectors status: CROW Response - Approved Created: April 04, 2024 Sent: April 04, 2024 T [facility] 04-04-2024 Miscellaneous Notes Liam Escobar (Vicente: [id number]) - [id number] AJOVY (fremanezumab-vfrm) injection 225MG/1.5ML auto-injectors status: PA Response - Approved Created: April 04, 2024 Sent: April 04, 2024 documented in this encounter [facility] 04-03-2024 Telephone encounter Note Liam Escobar (Vicente: [id number]) - [id number] AJOVY (fremanezumab-vfrm) injection 225MG/1.5ML auto-injectors status: PA Request Created: April 03, 2024 Sent: April 03, 2024 [facility] 04-03-2024 Miscellaneous Notes Liam Escobar (Vicente: [id number]) - [id number] AJOVY (fremanezumab-vfrm) injection 225MG/1.5ML auto-injectors status: PA Request Created: April 03, 2024 Sent: April 03, 2024 documented in this encounter [facility] 02-21-2024 Telephone encounter Note Patient aware of cancellation, wants to reschedule on her own, given phone number [facility] 02-21-2024 Miscellaneous Notes Patient aware of cancellation, wants to reschedule on her own, given phone number 2nd attempt. Left messge on about EMG cancellation 1st attempt to reach about cancellation and rescheduling options for her EMG appointment, left vm and sent [employer] message. Lakshmi Rogelio documented in this encounter [facility] 02-21-2024 Telephone encounter Note 2nd attempt. Left messge on VM about EMG cancellation [facility] 02-20-2024 Telephone encounter Note 1st attempt to reach about cancellation and rescheduling options for her EMG appointment, left vm and sent MyChart message. Lakshmi Mercado [facility] 01-31-2024 Telephone encounter Note See reply to you. [facility] 01-31-2024 Miscellaneous Notes See reply to you. documented in this encounter [facility] 01-17-2024 Telephone encounter Note (Vicente: [id number]) - [id number] Nurtec 75MG dispersible tablets Status: PA Request Created: January 16, 2024 Sent: January 17, 2024 [facility] 01-17-2024 Miscellaneous Notes (Vicente: [id number]) - [id number] Nurtec 75MG dispersible tablets Status: PA Request Created: January 16, 2024 Sent: January 17, 2024 A prior authorization has been started for by the pharmacy. To submit the Prior Authorization, please follow the instructions below 1. Go to go.[employer]/login & click Enter a Vicente 2. Enter the patient s last name, date of and the vicente Vicente: [id number] 3. Complete the PA & Click Send to Plan for approval Prior authorization fax has been scanned to chart for further review. documented in this encounter [facility] 01-17-2024 Telephone encounter Note A prior authorization has been started for by the pharmacy. To submit the Prior Authorization, please follow the instructions below 1. Go to go[employer]/login & click Enter a Vicente 2. Enter the patient s last name, date of and the vicente Vicente: [id number] 3. Complete the PA & Click Send to Plan for approval Prior authorization fax has been scanned to chart for further review. [facility] 01-15-2024 Instructions Pamela Cleaning APRN.FATBACK TRIMMER - 01/15/2024 9:20 AM EDT Preventative: Nurtec 75 mg ODT every other day for prevention. Nurtec 75 mg ODT is a calcitonin gene-related peptide receptor antagonist indicated for the use of acute migraine treatment. Nurtec will dissolve on or underneath your tongue. Can use every other day for prevention (16 tablets). Side effects can include nausea. Abortive: avoid taking more than 10 doses of abortive medications (sumatriptan, Tylenol, Motrin, other over the counter medications) each month to reduce risk for rebound headaches. Sumatriptan (Imitrex) 50 mg tablet at onset of headache. If headache continues after 2 hour, you may repeat above dose. Sumatriptan should NOT be taken on a daily basis. Side effects can include drowsiness, dizziness, chest/throat tightness. MRI brain. Please hold your metformin for 2 days prior to MRI. EMG You can call [phone] to schedule testing and any follow up to discuss. Headache Preventive Treatment: Please keep in mind that it takes 4-6 weeks for the medication to start working well and 2-3 months at the appropriate dose before deciding if it will be useful or not. If it is not helping at all by this time, then we will discuss other medications to try. Supplements may take 3-6 months until you see full effect. Natural supplements: Magnesium Oxide 500 mg at bed Coenzyme Q10 300 mg in AM Vitamin B2- 200 mg twice a day Feverfew 50 mg twice a day Vitamins and herbs that show potential Magnesium: Magnesium (250 mg twice a day or 500 mg at bed) has a relaxant effect on smooth muscles such as blood vessels. Individuals suffering from frequent or daily headache usually have low magnesium levels which can be increase with daily supplementation of 400-750 mg. Three trials found 40-90% average headache reduction when used as a preventative. Magnesium also demonstrated the benefit in menstrually related migraine. Magnesium is part of the messenger system in the serotonin cascade and it is a good muscle relaxant. It is also useful for constipation which can be a side effect of other medications used to treat migraine. Good sources include nuts, whole grains, and tomatoes. Magnesium comes in many different forms: Magnesium glycinate is a good choice for those with a sensitive stomach who have gastrointestinal side effects such as diarrhea with other forms of magnesium. It is anecdotally also helpful with anxiety and sleep. Magnesium threonate also has low risk of gastrointestinal side effects and anecdotally helpful with cognitive function and brain fog symptoms. Magnesium malate has low gastrointestinal side effects and is reportedly more energizing and anecdotally often helpful in fibromyalgia and chronic fatigue syndrome. Magnesium citrate is one of the most studied, popular, and well-absorbed forms of magnesium.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
[2024-08-30 08:16] LABS: Basophils Absolute Auto 0.1 10^3/uL (0.0-0.1); Basophils Percent Auto 0.7 % (0.2-2.0); Eosinophils Absolute Auto 0.2 10^3/uL (0.0-0.7); Eosinophils Percent Auto 1.9 % (0.9-7.0); Hematocrit 45.2 % (36.0-48.0); Hemoglobin 14.4 g/dL (12.0-16.0); Immature Granulocytes Abs Auto 0.02 10^3/uL (0.00-0.03); Immature Granulocytes Pct Auto 0.2 % (0.0-0.5); Lymphocytes Absolute Auto 3.9 10^3/uL (1.2-3.8); Mean Corpuscular HGB Conc 31.9 g/dL (29.9-35.2); Mean Corpuscular Volume 78.5 fL (81.0-99.0); Mean Platelet Volume 9.8 fL (9.5-13.5); Monocytes Absolute Auto 0.7 10^3/uL (0.3-0.8); Monocytes Percent Auto 6.2 % (1.7-12.0); Neutrophils Absolute Auto 5.6 10^3/uL (1.4-6.5); Platelet Count 243 10^3/uL (150-450); Red Blood Count 5.76 10^6/uL (4.20-5.40); Red Cell Distribution Width 14.1 % (11.0-15.0); White Blood Count 10.4 10^3/uL (4.0-11.0)
[2024-08-30 08:53] LABS: Alanine Aminotransferase 27 U/L (14-59); Albumin Globulin Ratio 0.8; Albumin Level 3.5 g/dL (3.4-5.0); Alkaline Phosphatase 64 U/L (46-116); Anion Gap 14.1; Aspartate Amino Transferase 22 U/L (15-37); BUN Creatinine Ratio 10.1; Bilirubin Total 0.5 mg/dL (0.2-1.0); C Reactive Protein <0.50 mg/dL (<=0.50); Calcium 8.9 mg/dL (8.5-10.1); Carbon Dioxide 26.7 mmol/L (21.0-32.0); Chloride 100 mmol/L (98-107); Chol HDL Ratio 3.3; Cholesterol 147 mg/dL (<=200); Estimated GFR (African America >60 (>=60 mL/min/1.73m^2); Estimated GFR (Non-African Ame >60 (>=60 mL/min/1.73m^2); Free T3 2.12 pg/mL (2.18-3.98); Globulin 4.4 g/dL; Glucose 208 mg/dL (74-106); HDL Cholesterol 45 mg/dL (40-60); Potassium 3.8 mmol/L (3.5-5.1); Sodium 137 mmol/L (136-145); Thyroid Stimulating Hormone 3.113 uIU/mL (0.358-3.740); Total Protein 7.9 g/dL (6.4-8.2); Triglycerides 264 mg/dL (<=150); Uric Acid 4.3 mg/dL (2.6-6.0); VLDL CHOLESTEROL 52.8 mg/dL
[2024-08-30 17:11] LABS: Estimated Average Glucose 306 mg/dL; Glycohemoglobin A1C 12.3 % (4.5-6.2)
[2024-08-31 08:07] LABS: Antistreptolysin O Ab 29.8 IU/mL (0.0-200.0); Rheumatoid Factor (RF) 13.5 IU/mL (<14.0)
[2024-08-31 11:07] LABS: Insulin 39.4 uIU/mL (2.6-24.9)
== END 2024-08-30 07:36 | disposition home or self-care (01) ==
PROVIDERS: PCP Nurse Practitioner Family; Visit Provider Nurse Practitioner Family
DX: Z00.00 Encounter for general adult medical examination without abnormal findings (principal)
CPT/HCPCS: 36415; 80053; 80061; 83036; 83525; 84436; 84443; 84481; 84550; 85025; 86038; 86060; 86140; 86431

== ENCOUNTER 2024-12-03 08:12 | Outpatient (OUT) | payer OTHER, SELFPAY ==
[2024-12-03 08:56] LABS: Estimated Average Glucose 180 mg/dL; Glycohemoglobin A1C 7.9 % (4.5-6.2)
== END 2024-12-03 08:13 | disposition home or self-care (01) ==
PROVIDERS: PCP Nurse Practitioner Family; Visit Provider Nurse Practitioner Family
DX: E11.9 Type 2 diabetes mellitus without complications (principal)
CPT/HCPCS: 36415; 83036

== ENCOUNTER 2025-02-20 11:54 | Outpatient (OUT) | payer OTHER, SELFPAY ==
--- OUTSIDE RECORDS SUMMARY | 2024-07-02 05:01 | XMS_ITS | Continuity of Care Document ---
Author Organization [facility] Address [address] [place] [id number] Phone Care Team Providers Care Finance Consultant Name Role Phone Isadora MOYA, HOT BREAD BAKER-AMPARO, Laurie Unavailable Unavailable Allergies, Adverse Reactions, Alerts Substance Reaction Status Criticality AMOXICILLIN SODIUM Active No Inform ation codeine Active No Information Medications Medication Instructions Dosage Effective Dates (start - stop) Status Comments METFORMIN 500MG TABLETS TAKE 1 TABLET BY MOUTH TWICE DAILY WITH THE MORNING AND EVENING MEAL - Active ROSUVASTATIN 5MG TABLETS TAKE 1 TABLET BY MOUTH EVERY DAY - Active LISINOPRIL-HCTZ 10/12.5MG TABLETS TAKE 1 TABLET BY MOUTH EVERY DAY - Active JARDIANCE 25MG TABLETS TAKE 1 TABLET BY MOUTH EVERY DAY IN THE MORNING - Active Wellbutrin SR 150 mg tablet, 12 hr sustained-release take 1 tablet by oral route 2 times every day 150 MG - Active Vraylar 3 mg capsule take 1 capsule by oral route every day 3 MG - Active Please send PA to [phone] if needed. Thanks amitriptyline 10 mg tablet take 3 tablet by oral route in am and take 3 by oral route nightly - Active ROSUVASTATIN 10MG TABLETS TAKE 1 TABLET BY MOUTH EVERY DAY - Active magnesium 100 mg (as glycinate) capsule take 3-4 caps by oral route nightly. - Active CETIRIZINE 10MG TABLETS TAKE 1 TABLET BY MOUTH EVERY DAY - Active metformin ER 500 mg tablet,extended release 24 hr take 1 tablet by oral route 2 times every day with the evening meal 500 MG - Active hydroxyzine pamoate 25 mg capsule take 2-3 capsule by oral route 3 times every day as needed for anxiety/panic - Active Trulicity 1.5 mg/0.5 mL subcutaneous pen injector inject (1.5MG) by subcutaneous route every week 1.5 MG - Active Diagnostic PhotonicsToInterana Ultra[address] M[address] 1 by Transdermal route 2 times every day 1 - Active OneTouch Ultra Test strips apply by Topical route 2 times every day Not Available - Active OneToInterana Delica Lancets 33 gauge check blood sugars 2 x daily - Active sumatriptan 50 mg tablet take 1 Tablet by oral route once with fluids as early as possible after the onset of a migraine attack;may repeat after 2 hours if headache returns, not to exceed 200mg in 24hrs 50 MG - Active methadone 10 mg/5 mL oral solution take 20 milliliter by oral route every 24 hours 40 MG - Active Advance Directives Directive Yes / No Effective Date File Name No Information Encounters Encounter Description Practice Location Reason(s) For Visit Diagnoses Date Provider [address], [id number] , tel:[phone] [facility] No Information 4 Isadora Laurie. Cassie Leticia Rosales, [id number] [address] [place] [address], [facility], [place]. [phone], [id number] , [place] tel:[phone] [facility] No Information 4 Isadora Sullivan. [address] Connie, [id number] [address] [place] [address], [facility], [place]. tel:[phone], [id number] , [place] tel:[phone] [facility] No Information 4 Isadora Sullivan. [address], [id number] [place], [place], [address], [place]. tel:[phone] [facility], [address] [place] [address], [place], [place], [id number] , [place] tel: [phone] [facility] bipolar disorder (chief complaint) F/u (chief complaint) MSE (chief complaint) Bipolar disorder, unspecifiedGeneralized Anxiety DisorderInsomnia due to other mental disorder 4 James Becker. [address] [id number] [place], [place], [address], [place]. tel:[phone] [facility], [address] [place] [address], [place], [place], [id number] , [place] tel: [phone] [facility] No Information 4 Isadora Sullivan. [address], [id number] [place], [place], [address], [place]. tel:[phone] [facility], [address] [place] [address], [place], [place], [id number] , [place] tel: [phone] [facility] No Information 4 Isadora Sullivan. [address], [id number] [place], [place], [address], [place]. tel:[phone] [facility], [address] [place] [address], [id number] , [place] tel: [phone] [facility] F/u (chief complaint) MSE (chief complaint) Body mass index (BMI) 37.0-37.9, adultBipolar disorder, unspecifiedGeneralized Anxiety DisorderInsomnia due to other mental disorder 4 James Becker. [address] [id number] [place], [place], [address], [place]. tel:[phone] [facility], [address] [place] [address], [place], [place], [id number] , [place] tel: [phone] [facility] No Information 4 Isadora Sullivan. [address], [id number] [place], [facility], [place]. tel:[phone] [facility], [address] [place] [address], [id number] , [place] tel: [phone] [facility] Type 2 diabetes mellitus with hyperglycemia 4 Isadora Sullivan. [address], [id number] [place], [facility], [place]. tel: [phone] [facility], [address] [place] [address], [address] [place] [address] , [place] tel: [phone] [facility] F/U LABS (chief complaint) Bipolar disorder, unspecifiedGeneralized Anxiety DisorderEssential hypertensionChronic post-traumatic stress disorderBreast cancer screening by mammogramType 2 diabetes mellitus with hyperglycemiaMigraine syndromeNicotine dependence with current useBody mass index (BMI) 36.0-36.9, adultCervical cancer screeningHyperlipidemia, unspecified 4 Isadora Sullivan. [place], [id number] [place], [facility], [place]. tel:[phone] [facility], [address] [place] [address], [id number] , [place] tel: [phone] [facility] bipolar disorder (chief complaint) F/u (chief complaint) MSE (chief complaint) Body mass index (BMI) 37.0-37.9, adultBipolar disorder, unspecifiedGeneralized Anxiety DisorderSuicidal ideationChronic post-traumatic stress disorder 4 James Becker. [address]., [id number] [place], [facility], [place]. tel:[phone] [facility], [address] [place] [address], [id number] , [place] tel: [phone] [facility] diabetes (chief complaint) Detoxing (chief complaint) Body mass index (BMI) 38.0-38.9, adultOpioid dependence, uncomplicatedType 2 diabetes mellitus with hyperglycemiaMigraine syndromeEssential hypertensionBreast cancer screening by mammogramBipolar disorder, unspecifiedGeneralized Anxiety DisorderCervical cancer screeningClass 2 severe obesity due to excess calories with serious comorbidity and body mass index (BMI) of 38.0 to 38.9 in adult 4 Isadora Sullivan. [address] [employer], [id number] [address] [place] [address], [facility], . [phone] [facility], [address] [place] [address], [id number] , [place] tel: [phone] [facility] F/u (chief complaint) MSE (chief complaint) Bipolar disorder, unspecifiedGeneralized Anxiety DisorderBody mass index (BMI) 38.0-38.9, adult 4 James Becker. [facility] [employer] [id number] [address] [place] [address], [facility], [place]. tel:[phone] [facility], [address] [place] [address], [id number] , [place] tel: [phone] [facility] bipolar disorder (chief complaint) F/u (chief complaint) MSE (chief complaint) Body mass index (BMI) 37.0-37.9, adultBipolar disorder, unspecifiedGeneralized Anxiety Disorder 4 James Becker. [facility] [employer] [id number] [address] [place] [address], [facility], [place]. [phone] [facility], [address] [place] [address], [id number] , [place] tel: [phone] [facility] anxiety (chief complaint) bipolar disorder (chief complaint) Change providers (chief complaint) MSE (chief complaint) Body mass index (BMI) 36.0-36.9, adultBipolar disorder, unspecifiedGeneralized Anxiety DisorderOpioid dependence, uncomplicatedSuicidal ideation 3 Ramirez Eugenio. [address] [place] [address]., [id number] [place], [address], [place]. tel: [phone] [facility], [address] [place] [address], [id number] , [place] tel: [phone] [facility] diabetes (chief complaint) hypertensi on (chief complaint) depression (chief complaint) Body mass index (BMI) 37.0-37.9, adultUnemployment, unspecifiedOther specified lack of adequate foodStress, not elsewhere classifiedBipolar disorder, unspecifiedGeneralized Anxiety DisorderType 2 diabetes mellitus with hyperglycemiaOpioid dependence, uncomplicatedMigraine syndromeEssential hypertensionBreast cancer screening by mammogram 3 Isadora Laurie. [address] [place] [address], [id number] [place], [place], [address], [place]. tel:[phone] [facility], [address] [place] [address], [id number] , [place] tel: [phone] [facility] anxiety (chief complaint) follow up (chief complaint) Body mass index (BMI) 36.0-36.9, adultBipolar disorder, unspecifiedGeneralized Anxiety Disorder 3 Mukund Lino. [address] [place] [address], [id number] [place], [id number], [place]. tel:[phone] [facility], [address] [place] [address], [id number] , [place] tel: [phone] [facility] bipolar disorder (chief complaint) follow up (chief complaint) Body mass index (BMI) 37.0-37.9, adultBipolar disorder, unspecifiedGeneralized Anxiety Disorder 3 Mukund Lino. [address] [place] [address], [id number] [place], [id number], [place]. tel:[phone] [facility], [address] [place] [address], [id number] , [place] tel: [phone] [facility] diabetes (chief complaint) Body mass index (BMI) 37.0-37.9, adultMigraine syndromeNerve damageType 2 diabetes mellitus with hyperglycemiaOpioid dependence, uncomplicatedEssential hypertensionBipolar disorder, unspecifiedGeneralized Anxiety DisorderNicotine dependence with current usePain, joint, knee, rightHep C w/o coma, chronic Raymond- 3 [facility]. [address], [id number] [place], [place], [address], [place]. [phone] [facility], [address] [place] [address], [id number] , [place] tel: [phone] [facility] COVID screening (chief complaint) anxiety (chief complaint) psych eval (chief complaint) Body mass index (BMI) 37.0-37.9, adultBipolar disorder, unspecifiedGeneralized Anxiety Disorder Nov- 3 Mukund Lino. [address] [place] [address], [id number] [address] [place] [address], [id number], [place]. tel:[phone] [facility], [address] [place] [address], [id number] , [place] tel:[phone] [facility] Major depressive disorder, recurrent, moderate Oct- 3 Sylvia Blackmon. [address] [place] [address], [address], [place]. [phone] [facility], [address] [place] [address], [id number] , [place] tel:[phone] [facility] No Information 3 Isadora Sullivan. [address] [place] [address], [id number] [place], [place], [address], [place]. tel:[phone] [facility], [address] [place] [address], [id number] , [place] tel:[phone] [facility] COVID screening (chief complaint) anxiety/de pression (chief complaint) Body mass index (BMI) 37.0-37.9, adultFamily history of breast cancerType 2 diabetes mellitus with hyperglycemiaNicotine dependence with current useEssential hypertensionOpioid dependence, uncomplicatedAnxietySevere depression 3 Josh Walton. [address], [id number] [place], [place], [address], [place]. tel:[phone] [facility], [address] [place] [address], [id number] , [place] tel:[phone] [facility] COVID screening (chief complaint) Cold symptoms (chief complaint) Body mass index (BMI) 36.0-36.9, adultOpioid dependence, uncomplicatedNicotine dependence with current useEssential hypertensionHistory of abnormal cervical Pap smearType 2 diabetes mellitus with hyperglycemiaAcute suppurative otitis media of right ear without spontaneous rupture of tympanic membrane, recurrence not specifiedHistory of hepatitis CAnxiety and depression 2 Isadora Sullivan. [facility], [id number] [address] [place] [address], [id number], [place]. [phone] [facility], [address] [place] [address], [id number] , [place] tel:[phone] [facility] COVID screening (chief complaint) Establish Care (chief complaint) hypertensi on (chief complaint) Essential hypertensionGastroesophagea l reflux disease without esophagitisEncounter to establish careBody mass index (BMI) 36.0-36.9, adultOpioid dependence, uncomplicatedHx of migrainesHistory of hepatitis CBreast cancer screening by mammogramOther specified counselingFamily history of breast cancerEncounter for immunizationAnxiety and depressionDepression, unspecifiedHistory of abnormal cervical Pap smearNicotine dependence with current use 2 Josh Walton. [address], [id number] [place], [place], [address], [place]. tel:[phone] Family History Family Member Type Diagnosis Age At Onset Mother Problem (finding) Cancer Mother Problem (finding) Depression Mother Problem Alive and well Mother Problem (finding) Severe manic bipolar I disorder Father Problem (finding) Father Problem (finding) Opioid abuse Mother Problem (finding) Mental Illness Grandmother (materna Problem (finding) cancer (situati on) Father Problem (finding) Asthma Mother Problem (finding) Malignant melanoma Aunt (maternal) Problem (finding) Malignant melanoma Mother Problem (finding) Alcoholism Mother Problem (finding) Chronic post-t raumatic stress disorder following combat Grandmother (paterna Problem (finding) Dementia Immunizations Vaccine Date Status Comments Tdap administered Source: New Imm unization Record Influenza, injectable, quadrivalent, preservative free administered Source: New Immuniza tion Record Payers Payer name Insurance type Covered republican ID Authoriza tion(s) [facility] Medical [facility] [id number] ODJFS [place] [facility] [id number] [facility] Medical [facility] [id number] ODJFS [facility] [id number] Social History Type Description Quantity Date Captured Comments Alcohol Use Details Unknown Caffeine Use Details Unknown Tobacco Use Status No Information Smoking Status No Information Sex Female Sexual Orientation Straight or heterosexual Gender Identity Female Chief Complaint And Reason For Visit No Information Plan Of Treatment Date Type Action Status Goal FIT. Due on due Goal Dental exam. Due on 024 due Goal Urinalysis. Due on 25 due Goal Wellness Visit. Due on due Goal Confidential His tory. Due on due Goal AUDIT. Due on du e Goal Risk Stratificat ion. Due on due Goal PAP w/ HPV testi ng age 30-64. Due on due Goal Living Will and Advance Directive. Due on due Goal Foot exam or Pod iatry refer. Due on due Goal HTN Self Managem ent Goals. Due on due Goal CMP or BMP. Due on due Goal HIV Screen due Goal Colonoscopy. Due on due Goal INFLUENZA, HIGH DOSE SEASONAL. Due on due Goal Influenza vaccin e. Due on due Goal Community Resour ce Guide. Due on due Goal Dilated eye exam . Due on due Goal Women's Health E ducation. Due on due Goal Cologuard. Due on due Goal PRAPARE . Due on due Goal Tdap. Due on due Goal Hemoglobin A1C. Due on due Goal Lipid panel. Due on due Goal DM Self Manageme nt Goals. Due on due Goal Drug Abuse Scree dilia Test (DAST). Due on due Goal Hepatitis C screening due Goal ASCVD 10 year ri sk. Due on due Goal Patient Health Q uestionnaire (PHQ-2). Due on due Goal Diabetes screeni ng. Due on due Goal SOGI Documentation due Goal SOGI Documentation due Goal Urinalysis. Due on due Goal Colonoscopy. Due on due Goal Wellness Visit. Due on due Goal AUDIT. Due on du e Goal CMP or BMP. Due on due Goal Drug Abuse Scree dilia Test (DAST). Due on due Goal Living Will and Advance Directive. Due on due Goal INFLUENZA, HIGH DOSE SEASONAL. Due on due Goal Dilated eye exam . Due on due Goal Dental exam. Due on due Goal DM Self Manageme nt Goals. Due on due Goal Risk Stratificat ion. Due on due Goal Hemoglobin A1C. Due on due Goal Tdap. Due on due Goal Women's Health E ducation. Due on due Goal ASCVD 10 year ri sk. Due on due Goal Patient Health Q uestionnaire (PHQ-2). Due on due Goal Cologuard. Due on due Goal Lipid panel. Due on due Goal PRAPARE . Due on due Goal Confidential His tory. Due on due Goal Community Resour ce Guide. Due on due Goal Diabetes screeni ng. Due on due Goal Hepatitis C screening due Goal HTN Self Managem ent Goals. Due on due Goal HIV Screen due Goal FIT. Due on due Goal PAP w/ HPV testi ng age 30-64. Due on due Goal Foot exam or Pod iatry refer. Due on due Goal Influenza vaccin e. Due on due Goal PRAPARE . Due on due Goal Hemoglobin A1C. Due on due Goal PAP w/ HPV testi ng age 30-64. Due on due Goal SOGI Documentation due Goal Hepatitis C screening due Goal INFLUENZA, HIGH DOSE SEASONAL. Due on due Goal Urinalysis. Due on due Goal Community Resour ce Guide. Due on due Goal HIV Screen due Goal Lipid panel. Due on 025 due Goal ASCVD 10 year ri sk. Due on due Goal Confidential His tory. Due on due Goal Tdap. Due on due Goal Women's Health E ducation. Due on due Goal Wellness Visit. Due on due Goal Diabetes screeni ng. Due on due Goal CMP or BMP. Due on due Goal HTN Self Managem ent Goals. Due on due Goal Risk Stratificat ion. Due on due Goal Patient Health Q uestionnaire (PHQ-2). Due on due Goal DM Self Manageme nt Goals. Due on due Goal Dental exam. Due on 024 due Goal Living Will and Advance Directive. Due on due Goal Dilated eye exam . Due on due Goal Foot exam or Pod iatry refer. Due on due Goal AUDIT. Due on du e Goal Drug Abuse Scree dilia Test (DAST). Due on due Goal Dietary manageme nt education, guidance, and counseling completed Goal AUDIT. Due on du e Goal Risk Stratificat ion. Due on due Goal Tdap. Due on due Goal Hepatitis C screening due Goal CMP or BMP. Due on 25 due Goal Foot exam or Pod iatry refer. Due on due Goal Confidential His tory. Due on due Goal PRAPARE . Due on due Goal Patient Health Q uestionnaire (PHQ-2). Due on due Goal Lipid panel. Due on 025 due Goal HIV Screen due Goal Living Will and Advance Directive. Due on due Goal PAP w/ HPV testi ng age 30-64. Due on due Goal Community Resour ce Guide. Due on due Goal Drug Abuse Scree dilia Test (DAST). Due on due Goal DM Self Manageme nt Goals. Due on due Goal HTN Self Managem ent Goals. Due on due Goal Dental exam. Due on due Goal SOGI Documentation due Goal Women's Health E ducation. Due on due Goal Diabetes screeni ng. Due on due Goal Dilated eye exam . Due on due Goal Wellness Visit. Due on due Goal ASCVD 10 year ri sk. Due on due Goal INFLUENZA, HIGH DOSE SEASONAL. Due on due Goal Hemoglobin A1C. Due on due Goal Urinalysis. Due on due Goal Lipid panel. Due on due Goal Community Resour ce Guide. Due on due Goal Tdap. Due on due Goal Hemoglobin A1C. Due on due Goal Wellness Visit. Due on due Goal Confidential His tory. Due on due Goal Living Will and Advance Directive. Due on due Goal Risk Stratificat ion. Due on due Goal PRAPARE . Due on due Goal DM Self Manageme nt Goals. Due on due Goal Dental exam. Due on due Goal Diabetes screeni ng. Due on due Goal Patient Health Q uestionnaire (PHQ-2). Due on due Goal Women's Health E ducation. Due on due Goal Drug Abuse Scree dilia Test (DAST). Due on due Goal CMP or BMP. Due on due Goal Foot exam or Pod iatry refer. Due on due Goal AUDIT. Due on du e Goal Hepatitis C screening due Goal ASCVD 10 year ri sk. Due on due Goal HIV Screen due Goal HTN Self Managem ent Goals. Due on due Goal Urinalysis. Due on due Goal INFLUENZA, HIGH DOSE SEASONAL. Due on due Goal PAP w/ HPV testi ng age 30-64. Due on due Goal Dilated eye exam . Due on due Goal SOGI Documentation due Goal Dietary manageme nt education, guidance, and counseling completed Goal Dental exam. Due on due Goal Foot exam or Pod iatry refer. Due on due Goal Women's Health E ducation. Due on due Goal Patient Health Q uestionnaire (PHQ-2). Due on due Goal Risk Stratificat ion. Due on due Goal Tdap. Due on due Goal Confidential His tory. Due on due Goal Hemoglobin A1C. Due on due Goal HTN Self Managem ent Goals. Due on due Goal Diabetes screeni ng. Due on due Goal INFLUENZA, HIGH DOSE SEASONAL. Due on due Goal Living Will and Advance Directive. Due on due Goal [facility] ce Guide. Due on due Goal PAP w/ HPV testi ng age 30-64. Due on due Goal Dilated eye exam . Due on due Goal Drug Abuse Scree dilia Test (DAST). Due on due Goal ASCVD 10 year ri sk. Due on due Goal PRAPARE . Due on due Goal AUDIT. Due on du e Goal Hepatitis C screening due Goal DM Self Manageme nt Goals. Due on due Goal HIV Screen due Goal SOGI Documentation due Goal Wellness Visit. Due on due Goal Dietary manageme nt education, guidance, and counseling completed Goal Wellness Visit. Due on due Goal Dental exam. Due on due Goal Living Will and Advance Directive. Due on due Goal [facility] ce Guide. Due on due Goal Urinalysis. Due on due Goal Diabetes screeni ng. Due on due Goal SOGI Documentation due Goal Hepatitis C screening due Goal Foot exam or Pod iatry refer. Due on due Goal HIV Screen. Due on due Goal DM Self Manageme nt Goals. Due on due Goal Patient Health Q uestionnaire (PHQ-2). Due on due Goal Drug Abuse Scree dilia Test (DAST). Due on due Goal INFLUENZA, HIGH DOSE SEASONAL. Due on due Goal Women's Health E ducation. Due on due Goal PRAPARE . Due on due Goal HTN Self Managem ent Goals. Due on due Goal ASCVD 10 year ri sk. Due on due Goal Risk Stratificat ion. Due on due Goal Confidential His tory. Due on due Goal CMP or BMP. Due on 25 due Goal PAP w/ HPV testi ng age 30-64. Due on due Goal Hemoglobin A1C. Due on due Goal Tdap. Due on due Goal AUDIT. Due on du e Goal Dietary manageme nt education, guidance, and counseling completed Goal DM Self Manageme nt Goals. Due on due Goal Community Resour ce Guide. Due on due Goal Drug Abuse Scree dilia Test (DAST). Due on due Goal Women's Health E ducation. Due on due Goal Foot exam or Pod iatry refer. Due on due Goal Dilated eye exam . Due on due Goal Living Will and Advance Directive. Due on due Goal HIV Screen due Goal Tdap. Due on due Goal Diabetes screeni ng. Due on due Goal HTN Self Managem ent Goals. Due on due Goal CMP or BMP. Due on due Goal PRAPARE . Due on due Goal Hepatitis C screening due Goal Dental exam. Due on due Goal Confidential His tory. Due on due Goal Patient Health Q uestionnaire (PHQ-2). Due on due Goal PAP w/ HPV testi ng age 30-64. Due on due Goal Risk Stratificat ion. Due on due Goal SOGI Documentation due Goal Wellness Visit. Due on due Goal AUDIT. Due on du e Goal INFLUENZA, HIGH DOSE SEASONAL. Due on due Goal Hemoglobin A1C. Due on due Goal Influenza vaccin e. Due on due Goal ASCVD 10 year ri sk. Due on due Goal Dietary manageme nt education, guidance, and counseling completed Goal Risk Stratificat ion. Due on due Goal Dental exam. Due on due Goal Confidential His tory. Due on due Goal EKG. Due on due Goal Hepatitis C scre ening. Due on due Goal INFLUENZA, HIGH DOSE SEASONAL. Due on due Goal SOGI Documentation due Goal Women's Health E ducation. Due on due Goal PRAPARE . Due on due Goal AUDIT. Due on du e Goal Tdap. Due on due Goal Foot exam or Pod iatry refer. Due on due Goal Dilated eye exam . Due on due Goal Drug Abuse Scree dilia Test (DAST). Due on due Goal Diabetes screeni ng. Due on due Goal PAP w/ HPV testi ng age 30-64. Due on due Goal DM Self Manageme nt Goals. Due on due Goal Patient Health Q uestionnaire (PHQ-2). Due on due Goal Influenza vaccin e. Due on due Goal Hemoglobin A1C. Due on due Goal ASCVD 10 year ri sk. Due on due Goal Wellness Visit. Due on due Goal HTN Self Managem ent Goals. Due on due Goal Living Will and Advance Directive. Due on due Goal Community Resour ce Guide. Due on due Goal Dietary manageme nt education, guidance, and counseling completed Goal HTN Self Managem ent Goals. Due on due Goal CMP or BMP. Due on 24 due Goal Confidential His tory. Due on due Goal Hepatitis C screening due Goal AUDIT. Due on du e Goal Women's Health E ducation. Due on due Goal Influenza vaccin e. Due on due Goal HIV Screen due Goal Tdap. Due on due Goal Community Resour ce Guide. Due on due Goal Dilated eye exam . Due on due Goal Diabetes screeni ng. Due on due Goal DM Self Manageme nt Goals. Due on due Goal Risk Stratificat ion. Due on due Goal INFLUENZA, HIGH DOSE SEASONAL. Due on due Goal SOGI Documentation due Goal PAP w/ HPV testi ng age 30-64. Due on due Goal Hemoglobin A1C. Due on due Goal ASCVD 10 year ri sk. Due on due Goal Living Will and Advance Directive. Due on due Goal Foot exam or Pod iatry refer. Due on due Goal Patient Health Q uestionnaire (PHQ-2). Due on due Goal EKG. Due on due Goal Drug Abuse Scree dilia Test (DAST). Due on due Goal Wellness Visit. Due on due Goal PRAPARE . Due on due Goal Dental exam. Due on 023 due Goal Dietary manageme nt education, guidance, and counseling completed Goal Patient Health Q uestionnaire (PHQ-2). Due on due Goal HTN Self Managem ent Goals. Due on due Goal DM Self Manageme nt Goals. Due on due Goal Drug Abuse Scree dilia Test (DAST). Due on due Goal AUDIT. Due on du e Goal EKG. Due on due Goal Foot exam or Pod iatry refer. Due on due Goal Wellness Visit. Due on due Goal Community Resour ce Guide. Due on due Goal INFLUENZA, HIGH DOSE SEASONAL. Due on due Goal HIV Screen due Goal PAP w/ HPV testi ng age 30-64. Due on due Goal Tdap. Due on due Goal Women's Health E ducation. Due on due Goal Dilated eye exam . Due on due Goal Confidential His tory. Due on due Goal Influenza vaccin e. Due on due Goal SOGI Documentation due Goal Diabetes screeni ng. Due on due Goal PRAPARE . Due on due Goal Living Will and Advance Directive. Due on due Goal Dental exam. Due on 023 due Goal ASCVD 10 year ri sk. Due on due Goal Hepatitis C screening due Goal Risk Stratificat ion. Due on due Goal Hemoglobin A1C. Due on due Goal CMP or BMP. Due on 24 due Goal Dietary manageme nt education, guidance, and counseling completed Goal Drug Abuse Scree dilia Test (DAST). Due on due Goal INFLUENZA, HIGH DOSE SEASONAL. Due on due Goal Hepatitis C screening due Goal Urinalysis. Due on 23 due Goal EKG. Due on due Goal Hemoglobin A1C. Due on due Goal AUDIT. Due on du e Goal Foot exam or Pod iatry refer. Due on due Goal Risk Stratificat ion. Due on due Goal Generalized Anxi ety Disorder (JF). Due on due Goal Diabetes screeni ng. Due on due Goal SOGI Documentation due Goal Confidential His tory. Due on due Goal Living Will and Advance Directive. Due on due Goal Influenza vaccin e. Due on due Goal Women's Health E ducation. Due on due Goal ASCVD 10 year ri sk. Due on due Goal Patient Health Q uestionnaire (PHQ-2). Due on due Goal PAP w/ HPV testi ng age 30-64. Due on due Goal Wellness Visit. Due on due Goal HIV Screen due Goal Dental exam. Due on due Goal PRAPARE . Due on due Goal CMP or BMP. Due on due Goal Tdap. Due on due Goal Community Resour ce Guide. Due on due Goal Dietary manageme nt education, guidance, and counseling completed Goal Diabetes screeni ng. Due on due Goal INFLUENZA, HIGH DOSE SEASONAL. Due on due Goal EKG. Due on due Goal PRAPARE . Due on due Goal SOGI Documentation due Goal PAP w/ HPV testi ng age 30-64. Due on due Goal Risk Stratificat ion. Due on due Goal HTN Self Managem ent Goals. Due on due Goal DM Self Manageme nt Goals. Due on due Goal Hepatitis C screening due Goal Drug Abuse Scree dilia Test (DAST). Due on due Goal Dental exam. Due on due Goal Confidential His tory. Due on due Goal Hep B (1st). Due on due Goal AUDIT. Due on du e Goal Community Resour ce Guide. Due on due Goal Living Will and Advance Directive. Due on due Goal Foot exam or Pod iatry refer. Due on due Goal ASCVD 10 year ri sk. Due on due Goal HIV Screen due Goal CMP or BMP. Due on 24 due Goal Influenza vaccin e. Due on due Goal Tdap. Due on due Goal Women's Health E ducation. Due on due Goal Dilated eye exam . Due on due Goal Hemoglobin A1C. Due on due Goal Urinalysis. Due on 23 due Goal Generalized Anxi ety Disorder (JF). Due on due Goal Patient Health Q uestionnaire (PHQ-2). Due on due Goal Dietary manageme nt education, guidance, and counseling completed Goal PRAPARE . Due on due Goal ASCVD 10 year ri sk. Due on due Goal EKG. Due on due Goal Diabetes screeni ng. Due on due Goal DM Self Manageme nt Goals. Due on due Goal Hemoglobin A1C. Due on due Goal Tdap. Due on due Goal Women's Health E ducation. Due on due Goal Dental exam. Due on 023 due Goal Patient Health Q uestionnaire (PHQ-2). Due on due Goal PAP w/ HPV testi ng age 30-64. Due on due Goal Dilated eye exam . Due on due Goal Confidential His tory. Due on due Goal Risk Stratificat ion. Due on due Goal Community Resour ce Guide. Due on due Goal HTN Self Managem ent Goals. Due on due Goal AUDIT. Due on du e Goal Living Will and Advance Directive. Due on due Goal SOGI Documentation due Goal Hep B (1st). Due on due Goal CMP or BMP. Due on 24 due Goal Foot exam or Pod iatry refer. Due on due Goal INFLUENZA, HIGH DOSE SEASONAL. Due on due Goal Urinalysis. Due on 23 due Goal Generalized Anxi ety Disorder (JF). Due on due Goal Influenza vaccin e. Due on due Goal Drug Abuse Scree dliia Test (DAST). Due on due Goal Hepatitis C screening due Goal HIV Screen due Goal Dietary manageme nt education, guidance, and counseling completed Goal Women's Health E ducation. Due on due Goal Patient Health Q uestionnaire (PHQ-2). Due on due Goal Diabetes screeni ng. Due on due Goal HIV Screen due Goal Foot exam or Pod iatry refer. Due on due Goal ASCVD 10 year ri sk. Due on due Goal EKG. Due on due Goal Confidential His tory. Due on due Goal INFLUENZA, HIGH DOSE SEASONAL. Due on due Goal Urinalysis. Due on due Goal Generalized Anxi ety Disorder (JF). Due on due Goal Influenza vaccin e. Due on due Goal DM Self Manageme nt Goals. Due on due Goal Hemoglobin A1C. Due on due Goal AUDIT. Due on du e Goal Dental exam. Due on 023 due Goal Dilated eye exam . Due on due Goal Living Will and Advance Directive. Due on due Goal CMP or BMP. Due on 24 due Goal Community Resour ce Guide. Due on due Goal PAP w/ HPV testi ng age 30-64. Due on due Goal Drug Abuse Scree dilia Test (DAST). Due on due Goal SOGI Documentation due Goal PRAPARE . Due on due Goal Tdap. Due on due Goal Risk Stratificat ion. Due on due Goal Hepatitis C screening due Goal HTN Self Managem ent Goals. Due on due Goal Hep B (1st). Due on 023 due Goal Tobacco cessation counseling completed Goal Dietary manageme nt education, guidance, and counseling completed Goal Diabetes screeni ng. Due on due Goal Women's Health E ducation. Due on due Goal EKG. Due on due Goal Hemoglobin A1C. Due on due Goal Hepatitis C screening due Goal Patient Health Q uestionnaire (PHQ-2). Due on due Goal CMP or BMP. Due on due Goal Confidential His tory. Due on due Goal Dilated eye exam . Due on due Goal Foot exam or Pod iatry refer. Due on due Goal Living Will and Advance Directive. Due on due Goal ASCVD 10 year ri sk. Due on due Goal INFLUENZA, HIGH DOSE SEASONAL. Due on due Goal Drug Abuse Scree dilia Test (DAST). Due on due Goal HTN Self Managem ent Goals. Due on due Goal PRAPARE . Due on due Goal HIV Screen due Goal Generalized Anxi ety Disorder (JF). Due on due Goal Tdap. Due on due Goal Hep B (1st). Due on due Goal Risk Stratificat ion. Due on due Goal SOGI Documentation due Goal Urine microalbum in. Due on due Goal Dental exam. Due on due Goal Community Resour ce Guide. Due on due Goal PAP w/ HPV testi ng age 30-64. Due on due Goal AUDIT. Due on du e Goal Urinalysis. Due on due Goal DM Self Manageme nt Goals. Due on due Goal Influenza vaccin e. Due on due Goal AUDIT. Due on du e Goal Dilated eye exam . Due on due Goal Diabetes screeni ng. Due on due Goal Generalized Anxi ety Disorder (JF). Due on due Goal Risk Stratificat ion. Due on due Goal ASCVD 10 year ri sk. Due on due Goal PRAPARE . Due on due Goal PAP w/ HPV testi ng age 30-64. Due on due Goal HTN Self Managem ent Goals. Due on due Goal Urine microalbum in. Due on due Goal SOGI Documentation due Goal Foot exam or Pod iatry refer. Due on due Goal Women's Health E ducation. Due on due Goal Hemoglobin A1C. Due on due Goal Patient Health Q uestionnaire (PHQ-2). Due on due Goal Dental exam. Due on 023 due Goal Drug Abuse Scree dilia Test (DAST). Due on due Goal Hep B (1st). Due on due Goal Influenza vaccin e. Due on due Goal Confidential His tory. Due on due Goal Hepatitis C scre ening. Due on due Goal Urinalysis. Due on due Goal Tdap. Due on due Goal DM Self Manageme nt Goals. Due on due Goal INFLUENZA, HIGH DOSE SEASONAL. Due on due Goal CMP or BMP. Due on due Goal Living Will and Advance Directive. Due on due Goal Community Resour ce Guide. Due on due Goal EKG. Due on due Goal EKG. Due on due Goal Foot exam or Pod iatry refer. Due on due Goal Tdap. Due on due Goal PRAPARE . Due on due Goal Dental exam. Due on 023 due Goal Hep B (1st). Due on 023 due Goal INFLUENZA, HIGH DOSE SEASONAL. Due on due Goal Risk Stratificat ion. Due on due Goal CMP or BMP. Due on 23 due Goal ASCVD 10 year ri sk. Due on due Goal Women's Health E ducation. Due on due Goal HTN Self Managem ent Goals. Due on due Goal SOGI Documentation due Goal Urine microalbum in. Due on due Goal Hemoglobin A1C. Due on due Goal Diabetes screeni ng. Due on due Goal Patient Health Q uestionnaire (PHQ-2). Due on due Goal Dilated eye exam . Due on due Goal Hepatitis C scre ening. Due on due Goal Generalized Anxi ety Disorder (JF). Due on due Goal Community Resour ce Guide. Due on due Goal PAP w/ HPV testi ng age 30-64. Due on due Goal AUDIT. Due on du e Goal Living Will and Advance Directive. Due on due Goal Drug Abuse Scree dilia Test (DAST). Due on due Goal Confidential His tory. Due on due Goal Urinalysis. Due on due Goal Influenza vaccin e. Due on due Goal DM Self Manageme nt Goals. Due on due Goal Tobacco cessation counseling completed Goal Dietary manageme nt education, guidance, and counseling completed Goal ASCVD 10 year ri sk. Due on due Goal Foot exam or Pod iatry refer. Due on due Goal DM Self Manageme nt Goals. Due on due Goal Urine microalbum in. Due on due Goal Hemoglobin A1C. Due on due Goal Dental exam. Due on due Goal Dilated eye exam . Due on due Goal CMP or BMP. Due on due Goal Hep B (1st). Due on due Goal Risk Stratificat ion. Due on due Goal INFLUENZA, HIGH DOSE SEASONAL. Due on due Goal Living Will and Advance Directive. Due on due Goal AUDIT. Due on du e Goal PRAPARE . Due on due Goal Tdap. Due on due Goal Influenza vaccin e. Due on due Goal Diabetes screeni ng. Due on due Goal Drug Abuse Scree dilia Test (DAST). Due on due Goal HTN Self Managem ent Goals. Due on due Goal PAP w/ HPV testi ng age 30-64. Due on due Goal Generalized Anxi ety Disorder (JF). Due on due Goal Urinalysis. Due on due Goal Patient Health Q uestionnaire (PHQ-2). Due on due Goal Community Resour ce Guide. Due on due Goal EKG. Due on due Goal SOGI Documentation due Goal Women's Health E ducation. Due on due Goal Hepatitis C scre ening. Due on due Goal Confidential His tory. Due on due Goal Dietary manageme nt education, guidance, and counseling completed Goal Tobacco cessation counseling completed Goal PAP w/ HPV testi ng age 30-64. Due on due Goal Confidential His tory. Due on due Goal Drug Abuse Scree dilia Test (DAST). Due on due Goal Women's Health E ducation. Due on due Goal AUDIT. Due on du e Goal Tdap. Due on due Goal Community Resour ce Guide. Due on due Goal INFLUENZA, HIGH DOSE SEASONAL. Due on due Goal PRAPARE . Due on due Goal Hepatitis C scre ening. Due on due Goal SOGI Documentation due Goal Patient Health Q uestionnaire (PHQ-2). Due on due Goal Living Will and Advance Directive. Due on due Goal Risk Stratificat ion. Due on due Goal Influenza vaccin e. Due on due Goal EKG. Due on due Goal Urinalysis. Due on due Goal CMP or BMP. Due on due Goal Diabetes screeni ng. Due on due Goal HTN Self Managem ent Goals. Due on due Goal Tobacco cessation counseling completed Goal Dietary manageme nt education, guidance, and counseling completed Referral Ordered: Clinical Pharmacy (related to Type 2 diabetes mellitus with hyperglycemia) ordered Referral Ordered: Referrals: Neurology. Evaluate and treat ordered Referral Ordered: Referrals: Neurology ordered Referral Ordered: Referrals: Psychiatry ordered Referral Ordered: Referrals: Mental Health Counselor ordered Referral Ordered: SCR MAMMO BI INCL CAD ordered Referral Ordered: Referrals: [facility] ordered Future Order: Lab Order Urine Mi croalbumin (In House) (Urine Microalbumin (In House)), Ordered on: Ordered Future Order: Lab Order Urinalys is Dip Stick (Multistix) (Urinalysis Dip Stick (Multistix)), Ordered on: Ordered Future Order: Radiology Order SC R MAMMO BI INCL CAD ([id number]), Ordered on: Ordered Future Order: Radiology Order SC R MAMMO BI INCL CAD ([id number]), Ordered on: Ordered Future Order: Lab Order CBC (INC LUDES DIFF/PLT) ([id number]), Sent on: Sent Future Order: Lab Order COMPREHE NSIVE METABOLIC PANEL ([id number]), Sent on: Sent Future Order: Lab Order HEMOGLOB IN A1C (496), Sent on: Sent Future Order: Lab Order LIPID PA LORRAINE ([id number]), Sent on: Sent Future Order: Lab Order VITAMIN D,25-OH,TOTAL,IA ([id number]), Sent on: Sent Future Order: Lab Order TSH, 3RD GENERATION ([id number]), Sent on: Sent Future Order: Lab Order T4, FREE ([id number]), Sent on: Sent Future Order: Lab Order URIC ACI D ([id number]), Sent on: Sent Future Order: Lab Order VALPROIC ACID ([id number]), Sent on: Sent Future Order: Lab Order CBC (H/H , RBC, INDICES, WBC, PLT) ([id number]), Sent on: Sent Future Order: Lab Order COMPREHE NSIVE METABOLIC PANEL ([id number]), Sent on: Sent Future Order: Lab Order MICROALB UMIN, RANDOM URINE (W/CREATININE) ([id number]), Sent on: Sent Future Order: Lab Order HEMOGLOB IN A1C (496), Sent on: Sent Future Order: Lab Order LIPID PA LORRAINE ([id number]), Sent on: Sent Future Order: Lab Order T4, FREE ([id number]), Sent on: Sent Future Order: Lab Order TSH W/RE FLEX TO FREE T4 ([id number]), Sent on: Sent Future Order: Lab Order URINALYS IS, COMPLETE W/REFLEX TO CULTURE ([id number]), Sent on: Sent Future Order: Lab Order SARS-CoV -2 RNA (COVID-19), QUALITATIVE NAAT ([id number]), Sent on: Sent Future Order: Radiology Order SC R MAMMO BI INCL CAD ([id number]), Ordered on: Ordered History Of Present Illness Encounter Date Complaint History Of Prese nt Illness bipolar disorder Additional info rmation: Patient is calling in for a follow up and to get a refill. MSE Appearance: caus ally dressed, well groomed, sitting in front seat Behavior: no notable increased psychomotor activity, good eye contactSpeech: normal range/rhythm/toneAffect: normal rangeMood: "anxious, I am just ready to get this move done, I just want to enjoy this house Thought Process: linear and goal directedThought Content: denies hi/si/sb, av hallucinationsOrientation: A/Bs6Ezdyjw/Concentration: intact/intactInsight/judgment: fair/fair F/u Pt is a 44 year old female who presents for f/u. Pt has a past psych hx of Bipolar disorder, JF, substance use disorder (opioids). At last visit (03/18/24) pt was encouraged to increase Vraylar 3mg qhs, add Wellbutrin SR 100mg BID x 3 weeks and then increase 200mg BID, continue with Amitriptyline 10-20mg in am (30mg-due to move) and 20-30mg qhs (30mg qhs), continue with Hydroxyzine 25-50mg TID as needed ( ), start Mag Glyc 300-400mg qhs, and establish with trauma therapist and f/u in 4 weeks. Pt reports did not increase Wellbutrin and Vraylar. Pt reports taking meds and denies side effects. Endorse irritability, anxiety (manageable), difficulties with sleep. Sleeping cat naps all night long . Appetite Denies feeling down, depressed, racing thoughts, si/hi/sb, panic attacks. Pt reports I feel like I can use a little boost in med. Pt reports has not started therapy due to moving to [place]. Previous meds: Celexa, Cymbalta-ineffective, Ambien, Ativan, Trazodone-nightmares, Vraylar 1.5 mg-excess daytime sedation, Wellbutrin XL 150 mg-upset stomach; Seroquel-nightmares; Venlafaxine-foggy/ head heavy ; Lexapro-effective; Lamictal (100mg)-ineffectivePt consented to ; visit completed using secure video audio via [employer] MSE Appearance: caus ally dressed, well groomed, sitting in chair, wearing maskBehavior: no notable increased psychomotor activity, good eye contactSpeech: normal range/rhythm/tone Affect: normal rangeMood: very good Thought Process: linear and goal directedThought Content: denies si/ hi/sb, av hallucinationOrientation: A/Ox 4Memory/Concentration: intact/intactInsight/judgment: fair/good F/u Pt is a 43 year old female who presents for f/u. Pt has a past psych hx of Bipolar disorder, JF, substance use disorder (opioids). At last visit (01/03/24) pt was encouraged to retrial Vraylar 1.5mg qhs, increase Amitriptyline 10-20mg in am (30mg-due to move) and 20-30mg qhs (30mg qhs) and increase Hydroxyzine 25-50mg TID as needed (has not needed) and establish with trauma therapist and f/u in 3 weeks. Pt reports taking meds as prescribed and denies side effects. Endorses feeling depressed, irritability, lack of energy, lack of motivation. Sleeping 3hrs nightly (reports that is good for her, feels rested). Appetite is good. Denies racing thoughts, si/hi/sb, feeling down, hopeless, increased unexplained energy, elevated self mood. Pt has not EMDR started therapy. Pt reports moved to [facility] which is near [place]. Pt reports looking forward to EMDR. Pt reports coming down of Methadone and currently on 25militer and will be done and off by June.Previous meds: Celexa, Cymbalta-ineffective, Ambien, Ativan, Trazodone-nightmares, Vraylar 1.5 mg-excess daytime sedation, Wellbutrin XL 150 mg-upset stomach; Seroquel-nightmares; Venlafaxine-foggy/ head heavy ; Lexapro-effective; Lamictal (100mg)-ineffective F/U LABS WOULD LIKE TO GO OVER LAB WORK RESULTS. F/u Pt is a 43 year old female who presents to office for f/u. Pt has a past psych hx of Bipolar disorder, JF, substance use disorder (opioids). At last visit (09/20/23) pt was encouraged to increase Lamictal 100mg qhs, start Amitriptyline 10-20mg qhs (reports will take 1 most night but will take 2 if noted severe neck pain) and f/u in 3 weeks. Pt reports taking meds (has been without lamictal x 1.5 week) but felt Amitriptyline w Endorses passive SI (no plan or intent, states children are safety plan), feeling down, depressed, hopeless, anxiety (daily), self isolations, panic attack (daily, "states leaving room cause anxiety ), racing thoughts, irritability. Sleeping 4 hrs nightly. Appetite Denies sb/hi, av hallucinations. Pt is currently in counseling at [facility] clinic, states attends therapy once weekly. Pt reports going out today to look for apartments. Pt reports weaning off Methadone and states afraid that she won't have her counselor there because she knows her history and does not want to establish with new counselor because she will have to talk about traumas again. Previous meds: Celexa, Cymbalta-ineffective, Ambien, Ativan, Trazodone-nightmares, Vraylar 1.5 mg-excess daytime sedation, Wellbutrin XL 150 mg-upset stomach; Seroquel-nightmares; Venlafaxine-foggy/ head heavy ; Lexapro-effective; Lamictal (100mg)-ineffective MSE Appearance: caus ally dressed sitting exam chair, well groomed, sitting next to daughter on couchBehavior: no notable psychomotor agitation, good eye contactSpeech: normal range/rhythm/toneAffect: normal rangeMood: bad, I don't want to get out bed Thought Process: linear and goal directed Thought Content: denies si/hi/sb, av hallucinationsOrientation: A/Ie3Yhzckc/Concentration: intact/intactInsight/judgement: poor/poor bipolar disorder diabetes Risk factors inc lude: / [place], family history diabetes mellitus, obesity and sedentary lifestyle. Managing with: Oral medications. Comorbidity: Hypertension. Additional information: Follow up and A1C done today. Requesting medication refills.. Detoxing Medically being monitored as doing a rapid detox from methadone. Pain is increased in body currently. Has lab orders that need to be done, was educated that lab is not here currently and patient stated will get done on Sunday next week. MSE Appearance: caus ally dressed sitting on couchBehavior: cooperative, no notable increased psychomotor activity, good eye contactSpeech: normal rate/tone/rhythm Affect: euthymicMood: angry"Thought Process: linear and goal directed Thought Content: denies si/hi/sb, av hallucinationsOrientation: A/O x 4Memory/Concentration: intact/intactInsight/Judgement: good/good F/u Pt is a 43 year old female who presents to office for f/u. Pt has a past psych hx of Bipolar disorder, JF, substance use disorder (opioids). At last visit pt was encouraged to restart Lamictal 50mg daily, increase Venlafaxine 75mg daily, and hydroxyzine 25-50mg TID as needed. Pt reports taking meds as prescribed and states stopped Venlafaxine (reports only took 1.5wk) states was a little to much . Reports will take sisters Gabapentin when she gets migraines. States will be seen at [facility]-Neurology. Endorses feeling depressed, anxiety, irritability, inability to control worries. Sleeping 6 hrs. Appetite is poor. Reports will be looking to move towards [place] in a couple months. Denies si/hi/sb, av hallucinations, racing thoughts. Previous meds: Celexa, Cymbalta-ineffective, Ambien, Ativan, Trazodone-nightmares, Vraylar 1.5 mg-excess daytime sedation, Wellbutrin XL 150 mg-upset stomach; Seroquel-nightmares; Venlafaxine-foggy/ head heavy ; Lexapro-effective bipolar disorder Additional info rmation: patient is here for a follow up and restart her medications. F/u Pt is a 43 year old female who presents to office for f/u. Pt has a past psych hx of Bipolar disorder, JF, substance use disorder (opioids). At last visit pt was encouraged to d/c Depaktoe 250mg BID, start Lamictal 25mg x 2 weeks and then increase 2 weeks, start Venlafaxine 37.5mg daily, Seroquel 50-100mg qhs (stopped). Reports has been on meds for 2 weeks. Endorses anxiety, feeling down, depressed, impending doom, hopeless, irritability, inability to control worries, lack of motivation, lack of interest. Denies si/hi/sb, av hallucinations, racing thoughts Reports currently living with mother until waiting for income tax. Previous meds: Celexa, Cymbalta-ineffective, Ambien, Ativan, Trazodone-nightmares, Vraylar 1.5 mg-excess daytime sedation, Wellbutrin XL 150 mg-upset stomach; Seroquel-nightmares MSE Appearance: caus ally dressed sitting on couch next to daughterBehavior: notable increased psychomotor activity (fidgety), poor eye contactSpeech: normal rate/rhythm/toneAffect: normal rangeMood: "worried and depressed Thought Process: linear and goal directedThought Content: denies si/ hi/sb, reports av hallucinationOrientation: A/Ox 4Memory/Concentration: intact/intactInsight/judgement: fair/fair Change providers Pt is a 43 year old female who presents to office to restablish. Pt has a past psych hx of Bipolar disorder, JF, substance use disorder (opioids). Pt was previously managed by Sabino Duval on 03/12/23. Pt is currently taking Methadone (reports detoxing off, 3mg/mn), Depaktoe 250mg BID, Seroquel 50-100mg qhs (reports has not taken in a few days, 50mg qhs), Caplyta 21 mg daily (was not covered). Reports feel medications are not effective. Endorse anhedonia, severe anxiety, panic attack (states unable to face anyone or leave bedroom), feeling down, emotional, SI (not intent or plan, states I couldn't do that to my kids ), irritability, Denies racing thoughts, sb/hi, increased goal directed activity, impulsivity, Sleeping 5-6 hrs daily (states sleeps during the day, awake during nightly (check on daughter-who has hx of seizure), not feeling rested upon waking. Appetite is poor. Reports goes to [facility] for counseling and attends weekly. Stressors: Living with mother (after loss job after toe amputation) and car broke downGoal: getting on right med and feeling better, get back to Normalcy and feel good about myself and stopped anger PMH: Denies thyroid or seizure disorderLast psych hospitalizations: 2000- depression. SA-12 yoa (attempted to cut wrist after argument with mother)Previous meds: Celexa, Cymbalta-ineffective, Ambien, Ativan, Trazodone-nightmares, Vraylar 1.5 mg-excess daytime sedation, Wellbutrin XL 150 mg-upset stomachLegal Issues: none reportedSafety Concerns: none reportedOccupation: Unemployed Living: with Mother, and 1 children ( 13 yoa )Substance Use Disorder: Opioids (last used 10 yrs ago)Fam hx: Mother-Bipolar disorder; Sister-bipolar and depression; Father-Heroin Addiction; Maternal side-Alcoholic abuse. Mother attempted and resuscitated Highest education level: some collegeTrauma: Childhood: Sexual, Physical, Mental/Emotional, Verbal; Adulthood: Physical and mental/emotional anxiety MSE Appearance: caus ally dressed sitting in examine chairBehavior: no noted psychomotor agitation, good eye contactSpeech: normal range/rhythm/toneAffect: constrictedMood: depressed Thought Process: linear and goal directed Thought Content: denies hi/sb, av hallucinations; reports SIOrientation: A/Cb0Sofvsw/Concentration: intact/intactInsight: fair bipolar disorder Patient is here for a follow up. diabetes Risk factors inc lude: / [place], family history diabetes mellitus, obesity and sedentary lifestyle. Managing with: Oral medications. Comorbidity: Hypertension. Additional information: Follow up and A1C done today. Stating that the increase in medication that was last done to 1000mg did not bide well with body causing severe side effects. Requesting medication refills and changes.. hypertension The HTN started in 2019. Risk factors include inactive lifestyle, obesity and smoking. Additional information: Follow up, requesting medication refills, no recent labs. depression Additional infor sarah: Does follow up with counseling at an outside clinic. anxiety Additional infor mation: Follow up, not taking welbutrin due to side effects. follow up Follow up 03/12/23 : The client is a 42 year old female presenting for follow up visit. The client was last seen for follow up 02/13/23 and carries the Dx(s) of Bipolar Disorder and JF. Plan at last visit was to D/C Vraylar 1.5 mg due to SE of excess daytime sedation, increase Depakote ER to 750 mg daily for mood stability/anxiety/irritability due to improvement with 500 mg daily, obtain Depakote Level, start Wellbutrin XL 150 mg daily for motivation/energy/depression, continue Seroquel 50-100 mg QHS PRN for sleep due to efficacy.Client reports side effect of upset stomach from Wellbutrin XL 150 mg so D/C, takes Depakote ER 250 mg BID or TID PRN. However still reports mood is more stable overall with Depakote 250 mg BID/TID PRN, still much less irritable, still much less anxious, however still feeling down/depressed often, still fatigue and lack of motivation.Sleep/Appetite: still reports good sleep with Seroquel 50-100 mg, still good appetiteSocial/living situation: Lives with and mother, no current occupationSubstance use/safety: Opioid dependence (treated with Methadone), denies current/recent SI/SIB/HIPrevious psych meds: Celexa, Cymbalta-ineffective, Ambien, Ativan, Trazodone-nightmares, Vraylar 1.5 mg-excess daytime sedation, Wellbutrin XL 150 mg-upset stomachROS: HTN (treated)Plan/Assessment: Plan to start Caplyta 21 mg QHS for mood stability/bipolar depression, continue Depakote ER 250-750 mg daily PRN for mood stability/anxiety/irritability due to efficacy, D/C Wellbutrin XL 150 mg due to SE of upset stomach, continue Seroquel 50-100 mg QHS PRN for sleep due to efficacy. Client educated on medications and agrees with plan. Follow up with this provider in 2 weeks for reassessment of mood and medication management. follow up Follow up 3: The client is a 42 year old female presenting for follow up visit. The client was last seen for psychiatric evaluation 11/29/22 and carries the Dx(s) of Bipolar Disorder and JF. Plan at last visit was to start Vraylar 1.5 mg daily for mood stability/bipolar depression, start Depakote ER 250-750 mg daily PRN for anxiety/irritability, start Seroquel 50-200 mg QHS.Client reports side effect of excess daytime sedation from Vraylar 1.5 mg so D/C. However reports mood is more stable overall with Depakote 250 mg BID, much less irritable, much less anxious, however feeling down/depressed often, fatigue lack of motivation.Sleep/Appetite: reports good sleep with Seroquel 50-100 mg, good appetiteSocial/living situation: Lives with and mother, no current occupationSubstance use/safety: Opioid dependence (treated with suboxone), denies current/recent SI/SIB/HIPrevious psych meds: Celexa, Cymbalta-ineffective, Ambien, Ativan, Trazodone-nightmares, Vraylar 1.5 mg-excess daytime sedationROS: HTN (treated)Plan/Assessment: Plan to D/C Vraylar 1.5 mg due to SE of excess daytime sedation, increase Depakote ER to 750 mg daily for mood stability/anxiety/irritability due to improvement with 500 mg daily, obtain Depakote Level, start Wellbutrin XL 150 mg daily for motivation/energy/depression, continue Seroquel 50-100 mg QHS PRN for sleep due to efficacy. Client educated on medications and agrees with plan. Follow up with this provider in 2 weeks for reassessment of mood and medication management. bipolar disorder Additional info rmation: Patient is here for a follow up. and has some questions about some medication. diabetes The problem is g etting worse. Risk factors include: / [place], family history diabetes mellitus, obesity and sedentary lifestyle. Patient is compliant with using medication. Patient did not return for a follow-up. Managing with: Oral medications. Comorbidity: Hypertension. Pertinent negatives include blurred vision, chest pain, dyspnea, foot ulcers, urinary frequency, hypoglycemic episodes, increased fatigue and polydipsia. psych eval CC/HPI: The myesha nt is a 42 year old female presenting for psychiatric evaluation due to concerns of depression. Reports mood symptoms first started early in life and have persistedPrevious Psych Meds: Celexa, Cymbalta-ineffective, Ambien, Ativan, Trazodone-nightmaresSubstance use/abuse: opioid dependence (treated with Methadone)Depression: Client reports sleep is poor, frequent trouble falling asleep and staying asleep. Appetite is good. Reports anhedonia, lack of motivation, decreased energy, poor self-esteem/worthlessness, isolation, poor concentration, psychomotor agitation/retardation. Client denies SI/SIB/HI. Symptoms have been present most of the day for most days of the week on and off for most of clientsBipolar: Client reports a chronic hx of periods of decreased sleep in which client experiences an increase in energy, increase in goal directed activity, psychomotor agitation, expansive mood/markedly increased irritability, grandiosity, racing thoughts, increased distractibility, pressured speech, increased involvement in activities that could lead to negative consequencesGeneral Anxiety: Client reports a chronic hx of frequent uncontrollable worries and anxiety occurring most of the day for most days of the week, imagines worst case scenarios often, restlessness/fidgety, fatigue with anxiety, worsened concentration when anxious, irritability when anxious, muscle tension, sleep disturbance due to anxious thoughts. Symptoms cause remarkable impairment in social/occupational functioning and have been present for most of clients lifePsychosis: Denies AH/VH, denies paranoia, denies delusions of reference, denies mind reading, denies thought broadcasting/withdrawal, denies magical thinkingAssessment/Plan: At this time the clients reported symptoms and hx support the Dx(s) of Bipolar Disorder and JF. Plan to start Vraylar 1.5 mg daily for mood stability/bipolar depression, start Depakote ER 250-750 mg daily PRN for anxiety/irritability, start Seroquel 50-200 mg QHS. Client educated on medication and agrees with plan. Follow up with this provider in 3-4 weeks for reassessment of mood and medication management. COVID screening Screening Questi ons:Current fever: No.Current cough: No.Exposure to person with lab confirmed positive COVID-19: No.Travel during past two weeks: No.Difficulty breathing: No.Age over 65: No. Pertinent negatives include: cough and fever. anxiety The patient pres ents with anxious/fearful thoughts, depressed mood, difficulty concentrating, difficulty falling asleep, difficulty staying asleep and diminished interest or pleasure. The anxiety is associated with chronic pain, headache, irritability and nausea. The patient denies any vomiting. COVID screening Screening Questi ons:Current fever: No.Current cough: No.Exposure to person with lab confirmed positive COVID-19: No.Travel during past two weeks: No.Difficulty breathing: No.Healthcare worker or marketing director: No.Alf or Dust Box Worker Care facility: No.Living in a group facility: No.Age over 65: No.Tested for COVID-19: No. anxiety/depression The patient p resents with anxious/fearful thoughts, depressed mood, difficulty concentrating, difficulty falling asleep, difficulty staying asleep and diminished interest or pleasure. The anxiety/depression is associated with chronic pain and headache. The patient denies any nausea and vomiting. Cold symptoms The patient desc ribes the cough as moist and productive (of green sputum). It occurs persistently. The problem has become gradually worse. Relieving factors include antihistamines and decongestants. Associated symptoms include cough, dyspnea, dyspnea on exertion, fatigue, nasal congestion, post-nasal drainage and sore throat. Additional information: STARTED ABOUT 5 DAYS AGO. TOOK SOME ANTIBIOTICS HAD FOR SOMETHING ELSE (DENTAL) RAPID COVID NEG. COVID screening Screening Questi ons:Current fever: No.Current cough: Yes.Exposure to person with lab confirmed positive COVID-19: Yes.Travel during past two weeks: No.Difficulty breathing: No.Healthcare worker or marketing director: No.Alf or Dust Box Worker Care facility: No.Living in a group facility: No.Age over 65: No.Tested for COVID-19: No. COVID screening Screening Questi ons:Current fever: No.Current cough: No.Exposure to person with lab confirmed positive COVID-19: No.Travel during past two weeks: No.Difficulty breathing: No.Healthcare worker or marketing director: No.Alf or [facility] Care facility: No.Living in a group facility: No.Age over 65: No.Tested for COVID-19: No.Underlying illnesses or risks: Yes.Additional Risks: Smoking. Pertinent negatives include: cough and fever. Establish Care This patient is being seen today to establish care. hypertension The HTN started in 2019. It is currently stable. Risk factors include inactive lifestyle, obesity and smoking. Instructions Date Instruction Additional Infor sarah Recommend increase i n exercise, the [place] [employer] recommends at least 150 minutes of moderate aerobic exercise or 75 minutes of vigorous aerobic activity or combo of both throughout one week, increase as tolerated, recommend healthy diet based on daily caloric intake basted on age and weight. Related to Class 2 severe obesity due to excess calories with serious comorbidity and body mass index (BMI) of 38.0 to 38.9 in adult Work to maintain opt imal blood sugars: 100-140 premeals, < 180 peak postmealsresume medications, take as directed:metformin 500 mg ER bid resume jardiance 25 mg dailycontinue 1.5 mg trulicity get regular eye exams, at least 1 per year.check feet daily, avoid trauma, see podiatry regularly. get regular dental exams - 2 per year!strive to get 150 minutes of moderate intensity exercise per week According to the U.S. Centers for Disease Control and Prevention (CDC), diabetes is the leading cause of blindness among adults aged 18-64 years. The most common diabetic eye disease is diabetic retinopathy. The condition occurs after consistently high blood sugar levels damage blood vessels in the retina, the light-sensing tissue that lines the back of the eye. In early stages diabetic retinopathy (called nonproliferative diabetic retinopathy), blood vessels can become blocked, cutting off blood supply to the retina. In response, new, abnormal blood vessels begin to proliferate (develop) in the retina. Unfortunately, these abnormal vessels can leak and develop scar tissue, which can cause a retinal detachment. Vision loss and a number of other eye diseases also can occur without early and proper treatment. This more advanced stage is called proliferative diabetic retinopathy.Individuals with diabetes are twice as likely to develop glaucoma or cataracts as someone without diabetes. Pay close attention to any changes in your vision. If any changes occur, contact your eye doctor. Schedule a dilated eye exam each year so your eye doctor can thoroughly examine the health and functioning of your eyes. Pay close attention to any changes in your vision. Related to Type 2 diabetes mellitus with hyperglycemia Giving encouragement to exercise Related to Body mass index (BMI) 37.0-37.9, adult Dietary management e ducation, guidance, and counseling Related to Body mass index (BMI) 37.0-37.9, adult Giving encouragement to exercise Related to Body mass index (BMI) 36.0-36.9, adult Dietary management e ducation, guidance, and counseling Related to Body mass index (BMI) 36.0-36.9, adult Giving encouragement to exercise Related to Body mass index (BMI) 37.0-37.9, adult Dietary management e ducation, guidance, and counseling Related to Body mass index (BMI) 37.0-37.9, adult Giving encouragement to exercise Related to Body mass index (BMI) 38.0-38.9, adult Dietary management e ducation, guidance, and counseling Related to Body mass index (BMI) 38.0-38.9, adult Giving encouragement to exercise Related to Body mass index (BMI) 38.0-38.9, adult Dietary management e ducation, guidance, and counseling Related to Body mass index (BMI) 38.0-38.9, adult Giving encouragement to exercise Related to Body mass index (BMI) 37.0-37.9, adult Dietary management e ducation, guidance, and counseling Related to Body mass index (BMI) 37.0-37.9, adult Giving encouragement to exercise Related to Body mass index (BMI) 36.0-36.9, adult Dietary management e ducation, guidance, and counseling Related to Body mass index (BMI) 36.0-36.9, adult Giving encouragement to exercise Related to Body mass index (BMI) 37.0-37.9, adult Dietary management e ducation, guidance, and counseling Related to Body mass index (BMI) 37.0-37.9, adult Community Resource Guide Confidential History Women's Health Education Giving encouragement to exercise Related to Body mass index (BMI) 36.0-36.9, adult Dietary management e ducation, guidance, and counseling Related to Body mass index (BMI) 36.0-36.9, adult Giving encouragement to exercise Related to Body mass index (BMI) 37.0-37.9, adult Dietary management e ducation, guidance, and counseling Related to Body mass index (BMI) 37.0-37.9, adult Giving encouragement to exercise Related to Body mass index (BMI) 37.0-37.9, adult Dietary management e ducation, guidance, and counseling Related to Body mass index (BMI) 37.0-37.9, adult Giving encouragement to exercise Related to Body mass index (BMI) 37.0-37.9, adult Dietary management e ducation, guidance, and counseling Related to Body mass index (BMI) 37.0-37.9, adult Management of mental health eduard tment Related to Major depressive disorder, recurrent, moderate Giving encouragement to exercise Related to Body mass index (BMI) 37.0-37.9, adult Dietary management e ducation, guidance, and counseling Related to Body mass index (BMI) 37.0-37.9, adult Giving encouragement to exercise Related to Body mass index (BMI) 36.0-36.9, adult Dietary management e ducation, guidance, and counseling Related to Body mass index (BMI) 36.0-36.9, adult Women's Health Education Community Resource Guide Giving encouragement to exercise Related to Body mass index (BMI) 36.0-36.9, adult Dietary management e ducation, guidance, and counseling Related to Body mass index (BMI) 36.0-36.9, adult Confidential History SOGI Documentation Assessments Type Assessment Date No Information
--- OUTSIDE RECORDS SUMMARY | 2024-12-16 10:18 | XMS_ITS ---
Author Organization The [facility] in [place] Address [address] [place] [address] Care Team Providers Care Metalizer Name Role Phone Yvonne Jovana Primary Care Provider REASON FOR VISIT Ozempic denied Medications Medication SIG (Take, Route, Fr equency, Duration) Notes Start Date End Date Status Trulicity 3 MG/0.5ML ADMINISTER 3 MG UND ER THE SKIN EVERY WEEK Subcutaneous for 28 days Active Encounters Encounter Location Date Provider Diagnosis [facility] [address] [place], [place] [address] [address] 12/16/2024 Jovana Russell Diabetes E11.9 Assessments Encounter Date Diagnosis (ICD Code) Assessment Notes Treatment Notes Treatment Clinical Notes Section Notes 12/16/2024 Diabetes (ICD-10 - E11.9) Plan Of Treatment Medication Medication Name Sig Start Date Stop Date Notes Trulicity 3 MG/0.5ML ADMINISTER 3 MG UND ER THE SKIN EVERY WEEK Subcutaneous for 28 days Ozempic (0.25 or 0.5 MG/DOSE) 2 MG/3ML 0.25 mg Subcutaneous weekly 11/17/2024 call for next dose Progress Notes * Constance ROWAN:0 1980 (44 yo F)Acc No.[id number]:12/16/2024 Patient: Marvin Trish ALICEA :1980 A ge:44 Y S ex:Female Address:[address], [place], [address] * Refills Refill Trulicity Solution Auto-injector, 3 MG/0.5ML, Subcutaneous, 4, ADMINISTER 3 MG UNDER THE SKIN EVERY WEEK, 28 days, Refills=11 Stop Ozempic (0.25 or 0.5 MG/DOSE) Solution Pen-injector, 2 MG/3ML, Subcutaneous, 0.25 mg, weekly Subjective: * Chief Complaints: * O zempic denied * Medical History: * Surgical History: * Hospitalization/Major Diagno stic Procedure: * Medications: Objective: * Vitals: * Physical Examination: Assessment: * Assessment: 1. D iabetes - E11.9 Plan: * Treatment: * Procedure Codes: * true * Date: Generated for Shad cantu/Migdalia/Reza on: 0 02/20/2025 11:57 AM EDT
--- OUTSIDE RECORDS SUMMARY | 2025-01-20 11:01 | XMS_ITS ---
Author Organization The [facility] in [place] Address [address] [place] [address] Care Team Providers Care Pharmacy Billing Adjudicator Name Role Phone Jovana Russell Primary Care Provider [phone] REASON FOR VISIT refill Medications Medication SIG (Take, Route, Fr equency, Duration) Notes Start Date End Date Status Gabapentin 300 MG 1 capsule Orally BID for 30 days 11/17/2024 Active Encounters Encounter Location Date Provider Diagnosis [facility] [address] [place] [address] 01/20/2025 Jovana Yvonne Neuropathy G62.9 Assessments Encounter Date Diagnosis (ICD Code) Assessment Notes Treatment Notes Treatment Clinical Notes Section Notes 01/20/2025 Neuropathy (ICD-10 - G62.9) Plan Of Treatment Medication Medication Name Sig Start Date Stop Date Notes Gabapentin 300 MG 1 capsule Orally BID for 30 days 025 Progress Notes * Stacey ROWANB:0 1980 (44 yo F)Acc No.[id number]:01/20/2025 Patient: Marvin Trish ALICEA :1980 A ge:44 Y S ex:Female Address:[address] [place], [address] * Refills Refill Gabapentin Capsule, 300 MG, Orally, 60 Capsule, 1 capsule, BID, 30 days, Refills=0 * true * Date: Generated for Shad cantu/Migdalia/Yareditting on: 0 02/20/2025 11:57 AM EDT
--- OUTSIDE RECORDS SUMMARY | 2025-02-20 05:00 | XMS_ITS ---
Author Organization The [facility] in [place] Address [address] [place] [address] Care Team Providers Care Furnace Filler Name Role Phone Jovana Russell Primary Care Provider [phone] Allergies Allergen (clinical drug ingredient) Drug/Non Drug Allergy documented on EMR Reaction Allergy Type Onset Date Status codeine Codeine hives Drug Allergy Active Penicillin swelling Drug Allergy Active REASON FOR VISIT took self off of bipolar meds wants back on Medications Medication SIG (Take, Route, Frequency, Duration) Notes Start Date End Date Status Magnesium Glycinate 100 MG 2 capsules Or ally HS for 30 days 09/03/2024 Active metFORMIN HCl ER 500 MG TAKE 1 TABLET BY MOUTH TWICE DAILY WITH THE EVENING MEAL Oral for 90 days Active Trulicity 3 MG/0.5ML ADMINISTER 3 MG UND ER THE SKIN EVERY WEEK Subcutaneous for 28 days Active Ondansetron HCl 4 MG TAKE 1 TABLET BY MO UTH EVERY DAY NEEDED FOR 30 DAYS for 30 Active Rosuvastatin Calcium 10 MG TAKE 1 TABLET BY MOUTH EVERY DAY Oral for 90 days Activ e buPROPion HCl ER (XL) 150 MG TAKE 1 TABLET BY MOUTH EVERY DAY IN THE MORNING FOR 30 DAYS for 30 days Active Gabapentin 300 MG 1 capsule Orally BID for 30 days 11/17/2024 Active hydrOXYzine Pamoate 25 MG TAKE 1 CAPSULE BY MOUTH 3 TIMES A DAY NEEDED FOR 30 DAYS for 30 Active Jardiance 25 MG TAKE 1 TABLET BY JARAD TH EVERY MORNING FOR 90 DAYS for 90 Active Vraylar 1.5 MG 1 capsule Oral Once a day for 30 days Active Dexcom G7 Restaurant Busser - USE DIRECTED for 30 Active Dexcom G7 Sensor - as directed for 28 days 025 Active Social History Tobacco Use: Social History Observation Description Date Details (start date - stop date) Former Smoker 07/22/2014 - 01/04/2023 Tobacco Control (Standard) Question Answer Notes Tobacco use: Former smoker When did you start smoking? 07/22/2014 When did you stop smoking? 01/04/2023 AUDIT-C (Standard) Question Answer Notes Did you have a drink containing alcohol in the p ast year? No Points 0 Interpretation Negative Vital Signs Weight 174 lbs 02/20/2025 Height 60 in 02/20/2025 Blood pressure systolic 110 mm Hg 02/21/20 25 Blood pressure diastolic 68 mm Hg 025 BMI 33.98 kg/m2 02/20/2025 Encounters Encounter Location Date Provider Diagnosis [address] [address] 02/20/2025 Jovana Russell Bipolar 1 disorder, depressed F31.9 and Diabetes E11.9 Assessments Encounter Date Diagnosis (ICD Code) Assessment Notes Treatment Notes Treatment Clinical Notes Section Notes 02/20/2025 Bipolar 1 disorder, depressed (ICD-10 - F31.9) restart meds discussed tapering doses back up fu 1-2 m 02/20/2025 Diabetes (ICD-10 - E11.9) Plan Of Treatment Medication Medication Name Sig Start Date Stop Date Notes buPROPion HCl ER (XL) 150 MG TAKE 1 TABL ET BY MOUTH EVERY DAY IN THE MORNING FOR 30 DAYS for 30 days Vraylar 1.5 MG 1 capsule Oral Once a day for 30 days Treatment Notes Assessment Notes Bipolar 1 disorder, depressed restart meds discussed tapering doses back up fu 1-2 m Pending Test Test Name Order Date HEMOGLOBIN A1C (GLYCO) 02/20/2025 Next Appt Details Follow Up: 2 Months,prn, Randa son: Progress Notes * Stacey ROWANB:0 1980 (44 yo F)Acc No.[id number]:02/20/2025 UNLOCKED PROGRESS NOTE Progress Note Patient: Marvin Trish ALICEA Provider: Ben Russell ([facility]), WIRE MACHINE CUTTER :1980 A ge:44 Y S ex:Female Date:02/20/2025 Address:[address], [address] [place] [place], [id number] Check In:08:56 AM ESTCheck O ut:09:44 AM EST Subjective: * Chief Complaints: * 1 . Took self off of bipolar meds wants back on. * HPI: G eneral: been off meds for month anxiety and depression vraylar, 1.5 and wellbutrin 150 A1c has lost some wt, intentional. * ROS: G eneral/Constitutional: Anxiety a dmits. D epression a dmits. F ever d enies. H eadache d enies. W eight loss d enies. O phthalmologic: Discharge d enies. E ye Pain d enies. I tching and redness d enies. E NT: Nasal discharge d enies. N hina congestion d enies.�Sore throat d enies. C ardiovascular: Chest tightness/ heavy pressure d enies. R apid heart rate d enies. S welling of extremities d enies. C hest pain d enies. � R espiratory: Productive cough d enies. C hest pain d enies. C ough d enies. S hortness of breath d enies. W heezing d enies. � G astrointestinal: Abdominal pain d enies. C onstipation d enies. D ecreased appetite d enies. D iarrhea d enies. N ausea d enies. V omiting�denies. G enitourinary: Urinary incontinence d enies. P ainful urination d enies. M usculoskeletal: Back pain d enies. N juanjose pain d enies. M uscle aches d enies. S kin: Rash d enies. S kin lesion(s) d enies. � * Medical History: M edical History Verified. * Surgical History: R epair of right knee , T&A , Tubes , Ingrown toenail removal 07/22/24. * Family History: F ather: , asthma, heroin abuse, from AIDS. M other: alive, bipolar, diagnosed with Unspecified heart disease, Unspecified essential hypertension, Diabetes mellitus without mention of complication, type II or unspecified type, not stated as uncontrolled. S ister(s): alive, bipolar, diagnosed with Diabetes mellitus without mention of complication, type II or unspecified type, not stated as uncontrolled, Unspecified essential hypertension. S on(s): alive, asthma.�Daughter(s): alive, asthma. 1 sister(s) . 3 son(s) . . * Social History: T obacco Use: T obacco Control (Standard) T obacco use: F ormer smoker W hen did you start smoking? 1 09/22/2013 W hen did you stop smoking? 0 01/04/2023 D rug/Alcohol: A ROSEMARIE-C (Standard) D id you have a drink containing alcohol in the past year? N o P oints 0 I nterpretation N egative * Medications: T aking Dexcom G7 Restaurant Busser(Continuous Glucose Restaurant Busser) - Device USE DIRECTED , Taking Dexcom G7 Sensor(Continuous Glucose Sensor) - Miscellaneous as directed , Taking Gabapentin 300 MG Capsule 1 capsule Orally BID , Taking hydrOXYzine Pamoate 25 MG Capsule TAKE 1 CAPSULE BY MOUTH 3 TIMES A DAY NEEDED FOR 30 DAYS , Taking Jardiance(Empagliflozin) 25 MG Tablet TAKE 1 TABLET BY MOUTH EVERY MORNING FOR 90 DAYS , Taking Magnesium Glycinate 100 MG Capsule 2 capsules Orally HS , Taking metFORMIN HCl ER 500 MG Tablet Extended Release 24 Hour TAKE 1 TABLET BY MOUTH TWICE DAILY WITH THE EVENING MEAL Oral , Taking Ondansetron HCl 4 MG Tablet TAKE 1 TABLET BY MOUTH EVERY DAY NEEDED FOR 30 DAYS , Taking Rosuvastatin Calcium 10 MG Tablet TAKE 1 TABLET BY MOUTH EVERY DAY Oral , Taking Trulicity(Dulaglutide) 3 MG/0.5ML Solution Auto-injector ADMINISTER 3 MG UNDER THE SKIN EVERY WEEK Subcutaneous , Not-Taking/PRN buPROPion HCl ER (XL) 300 MG Tablet Extended Release 24 Hour TAKE 1 TABLET BY MOUTH EVERY DAY IN THE MORNING FOR 30 DAYS , Not-Taking/PRN Vraylar(Cariprazine HCl) 4.5 MG Capsule 1 capsule Oral Once a day , Medication List reviewed and reconciled with the patient * Allergies: C odeine: hives, Penicillin: swelling. Objective: * Vitals: W t:174lbs, Ht: 60 in, BP:110/68mm Hg, BMI:33.98Index, Ht-cm: 152.4 cm, Wt-k.93 kg. * Examination: G eneral Examinations: GENERAL APPEARANCE: a lert and oriented, i n no acute distress. EYES: c onjunctiva normal, sclera non-icteric. NOSE: n ormal external appearance. LUNGS: c lear to auscultation bilaterally. CARDIO: r egular rate and rhythm, S1, S2 normal. ABDOMEN: s oft, nontender. MUSCULOSKELETAL: G ait and station normal. SKIN: w arm and dry. Assessment: * Assessment: 1. B ipolar 1 disorder, depressed - F31.9 (Primary) 2 . D iabetes - E11.9� Plan: * Treatment: 2. D iabetes L AB: HEMOGLOBIN A1C (GLYCO) * Follow Up: 2 Months,prn * * Electronic signature of Azalia Mohr NP, AMMONIUM NITRATE NEUTRALIZER.WIRE MACHINE CUTTER.[id number] on 02/20/2025 at 11:58 AM EDT Sign off status: Pending Visit Status: C MANE (Check Out) * Provider: Ben Russell ([facility]), WIRE MACHINE CUTTER Date: 02/20/2025 Generated for Printi ng/Faxing/eTransmitting on: 02/20/2025 11:58 AM EDT History and Physical Notes * HPI (History of Present Illness) Category Sub-Category Detail Notes Category Not es General been off meds for month anxiety and depression vraylar, 1.5 and wellbutrin 150 A1c has lost some wt, intentional Examination Category Sub-Category Detail Notes Category Not es General Examinations GENERAL APPEARANCE: alert a nd oriented, in no acute distress EYES: conjunctiva normal, sclera non-icteric EARS: NOSE: normal external appe arance THROAT: CARDIO: regular rate and rhy thm, S1, S2 normal LUNGS: clear to auscultatio n bilaterally ABDOMEN: soft, nontender SKIN: warm and dry BACK: MUSCULOSKELETAL: Gait and station nor mal LYMPH NODES:
--- OUTSIDE RECORDS SUMMARY | 2025-02-20 11:57 | XMS_ITS | Encounter Summary ---
Author Organization [facility] Address [address] [id number] Care Team Providers Care Licensed Vocational Nurse Name Role Phone Marly Underwood MD Primary Care Provider Jaya Rosado MD Primary Care Provider [phone] Tomasa Fine MD Primary Care Provider Isabelle Moreno APRN.INSTRUCTOR WEAVING Primary Care Provid er Laurie Muir APRN Unavailable Laurie Muir APRN Unavailable [phone] Eugenio Ramirez INSTRUCTOR WEAVING Unavailable Source Comments In the event this information is protected by the Federal Confidentiality of Alcohol and Drug AbusePatient Records regulations: The Federal rules restrict any use of the information to criminally investigate or prosecute any alcohol or drug abuse patient.[facility] Encounter Details Date Type Department Care Team ([facility] Contact Info) Description 08/22/2013 Patient Msg Medical Records [address] [id number] Provider, [facility] RE: Appointment Cancellation Request Social History Tobacco Use Types Packs/Day Years Used Date Smoking Tobacco: Every Day Cigarettes 0.5 14 Smokeless Tobacco: Never Comments:3-4 ciggarettes jeremy ly Alcohol Use Standard Drinks/Week Comments Yes 0 (1 standard drink = 0.6 oz pur e alcohol) social Comments No Sex and Gender Information Value Date Recorded Sex Assigned at Female 01/09/2024 10:32 PM EDT Legal Sex Female 8:01 AM EST Gender Identity Female 01/09/2024 10:32 PM EDT Sexual Orientation Straight 01/09/2024 10 :32 PM EDT Occupation Industry Job Start Date Job End Date homemaker Not on file Not on file Not on file documented as of this encounter Plan of Treatment Not on file documented as of this encounter Visit Diagnoses Not on filedocumented in this encounter Care Teams Licensed Vocational Nurse Relationship Specialty [place] [address] [place] [address] PCP - General Internal Medicine 10/16/11 12/01/14 [place] [address] [place] [address] PCP - General Manufacturing Operator 12/02/14 12/02/15 [place] [address] [place] [address] PCP - General Family Medicine 12/03/15 05/29/23 Isabelle Moreno APRN.INSTRUCTOR WEAVING [address] [id number] [address] PCP - General 05/30/23 Laurie Muir APRN [address] [place] [address] Referring Family Medicine 05/30/23 Laurie Muir APRN [address] [facility] [place] [address] Referring Family Medicine 01/05/24 Eugenio Ramirez CNP [address] [id number] [place] [address] Referring Family Medicine 05/27/24 documented as of this encounter
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
--- OUTSIDE RECORDS SUMMARY | 2025-02-20 11:57 | XMS_ITS | Encounter Summary ---
Author Organization [facility] Address [address] [id number] Care Team Providers Care Ultrasonic Hand Solderer Name Role Phone Marly Underwood MD Primary Care Provider Jaya Rosado MD Primary Care Provider [phone] Tomasa Fine MD Primary Care Provider [phone] Isabelle Moreno APRN.FIRE SYSTEMS INSPECTOR Primary Care Provid er Laurie Muir APRN Unavailable Laurie Muir APRN Unavailable [phone] Eugenio Ramirez FIRE SYSTEMS INSPECTOR Unavailable Source Comments In the event this information is protected by the Federal Confidentiality of Alcohol and Drug AbusePatient Records regulations: The Federal rules restrict any use of the information to criminally investigate or prosecute any alcohol or drug abuse patient.[facility] Encounter Details Date Type Department Care Team ([facility] Contact Info) Description 08/26/2013 Patient Msg Medical Records [address] [id number] Provider, Ccf RE: Appointment Cancellation Request Social [...] on filedocumented in this encounter Care Teams Ultrasonic Hand Solderer Relationship Specialty [place] [address] [place] [address] PCP - General Internal Medicine 10/16/11 12/01/14 [place] [address] [place] [address] PCP - General Distributor Publications 12/02/14 12/02/15 [place] [address] [place] [address] PCP - General Family Medicine 12/03/15 05/29/23 Isabelle Moreno APRN.FIRE SYSTEMS INSPECTOR [address] [id number], [place] [address] PCP - General 05/30/23 Laurie Muir APRN [address] [place] [address] Referring Family Medicine 05/30/23 Laurie Muir APRN [address] [place] [address] Referring Family Medicine 01/05/24 Eugenio Ramirez CNP [address] [id number] [place] [address] Referring Family Medicine 05/27/24 documented as of this encounter
--- OUTSIDE RECORDS SUMMARY | 2025-02-20 11:58 | XMS_ITS | Clinical Summary ---
Author Organization [facility] Address [address] [place] [address] Care Team Providers Care Drop Wirer Name Role Phone Unavailable Primary Care Provider Unavailabl e Medications amitriptyline (Elavil) 10 MG tablet Take 10 mg by mouth at bedtime 06/19/2024 Active buPROPion SR (Wellbutrin SR) 150 MG 12 hr tablet Take 150 mg by mouth in the morning and 150 mg before bedtime. 06/19/2024 Active Vraylar 3 MG capsule Take 1 capsule by mouth Daily 06/19/2024 Active Trulicity 1.5 MG/0.5ML solution auto-injector Inject 1.5 mg as directed 1 (one) time per week 04/19/2024 Active Active Problems No known active problems Social History Tobacco Use Types Packs/Day Years Used Date Smoking Tobacco: Former Cigarettes Tobacco Cessation:Counseling Given: Yes Alcohol Use Standard Drinks/Week Comments Defer 0 (1 standard drink = 0.6 oz pur e alcohol) Comments Unknown Sex and Gender Information Value Date Recorded Sex Assigned at Not on file Legal Sex Female 12:45 PM EST Gender Identity Not on file Sexual Orientation Not on file Last Filed Vital Signs Vital Sign Reading Time Taken Comments Blood Pressure - - Pulse - - Temperature - - Respiratory Rate 18 08/14/2024 1:48 PM EST Oxygen Saturation - - Inhaled Oxygen Concentration - - Weight 83.9 kg (185 lb) 08/14/2024 1:48 PM EST Height 152.4 cm (5') 08/14/2024 1:48 PM EST Body Mass Index 36.13 08/14/2024 1:48 PM EST Plan of Treatment Not on file Insurance [employer] MEDICAID
--- OUTSIDE RECORDS SUMMARY | 2025-02-20 11:58 | XMS_ITS | Encounter Summary ---
Author Organization [facility] Address [address] [id number] Care Team Providers Care Linoleum Layer Name Role Phone Marly Underwood MD Primary Care Provider Jaya Rosado MD Primary Care Provider [phone] Tomasa Fine MD Primary Care Provider Isabelle Moreno APRN.IT TECHNICAL ARCHITECT Primary Care Provid er Laurie Muri APRN Unavailable [phone] Laurie Muir APRN Unavailable [phone] Eugenio Ramirez IT TECHNICAL ARCHITECT Unavailable Source Comments In the event this information is protected by the Federal Confidentiality of Alcohol and Drug AbusePatient Records regulations: The Federal rules restrict any use of the information to criminally investigate or prosecute any alcohol or drug abuse patient.[facility] Encounter Details Date Type Department Care Team ([facility] st Contact Info) Description 10/17/2011 Patient Msg Medical Records [address] [id number] Provider, Ccf Appointment Cancellation Request Social History Tobacco Use Types Packs/Day Years Used Date Smoking Tobacco: Some Days Cigarettes Comments:sometimes couple ci garettes Alcohol Use Standard Drinks/Week Comments No 0 (1 standard drink = 0.6 oz pur e alcohol) social Comments Yes Sex and Gender Information Value Date Recorded Sex Assigned at Female 01/09/2024 10:32 PM EDT Legal Sex Female 8:01 AM EST Gender Identity Female 01/09/2024 10:32 PM EDT Sexual Orientation Straight 01/09/2024 10 :32 PM EDT documented as of this encounter Plan of Treatment Not on file documented as of this encounter Visit Diagnoses Not on filedocumented in this encounter Care Teams Linoleum Layer Relationship Specialty [place] [address] [place] [address] PCP - General Internal Medicine 10/16/11 12/01/14 [place] [address] [place] [address] PCP - General Hide Selector 12/02/14 12/02/15 [place] [address] [place] [address] PCP - General Family Medicine 12/03/15 05/29/23 Isabelle Moreno APRN.[facility] [address] [id number] [place] [address] PCP - General 05/30/23 Laurie Muir APRN [address] [place] [address] Referring Family Medicine 05/30/23 Laurie Muir APRN [address] [place] [address] Referring Family Medicine 01/05/24 Eugenio Ramirez CNP [address] [id number] [place] [address] Referring Family Medicine 05/27/24 documented as of this encounter
--- OUTSIDE RECORDS SUMMARY | 2025-02-20 11:58 | XMS_ITS | Encounter Summary ---
Author Organization [facility] Address [address] [id number] Care Team Providers Care Principle Industrial Hygienist Name Role Phone Marly Underwood MD Primary Care Provider Jaya Rosado MD Primary Care Provider [phone] Tomasa Fine MD Primary Care Provider [phone] Isabelle Moreno APRN.TESTER VIBRATOR EQUIPMENT Primary Care Provid er Laurie Muir APRN Unavailable Laurie Muir APRN Unavailable [phone] Eugenio Ramirez TESTER VIBRATOR EQUIPMENT Unavailable Source Comments In the event this information is protected by the Federal Confidentiality of Alcohol and Drug AbusePatient Records regulations: The Federal rules restrict any use of the information to criminally investigate or prosecute any alcohol or drug abuse patient.[facility] Encounter Details Date Type Department Care Team ([facility] Contact Info) Description 08/13/2013 Patient Msg Medical Records [address] [phone] Provider, Ccf RE: Patient Registration Completed Social History Tobacco Use Types Packs/Day Years Used Date Smoking Tobacco: Every Day Cigarettes 0.5 14 Smokeless Tobacco: Never Comments:sometimes couple ci garettes Alcohol Use Standard Drinks/Week Comments Yes 0 [...] on filedocumented in this encounter Care Teams Principle Industrial Hygienist Relationship Specialty Start [place] [address] [place] [address] PCP - General Internal Medicine 10/16/11 12/01/14 [place] [address] [place] [address] PCP - General Esthetician/Owner 12/02/14 12/02/15 [place] [address] [place] [address] PCP - General Family Medicine 12/03/15 05/29/23 Isabelle Moreno APRN.TESTER VIBRATOR EQUIPMENT [address] [id number], [place] [address] PCP - General 05/30/23 Laurie Muir APRN [address] [place] [address] Referring Family Medicine 05/30/23 Laurie Muir APRN [address] [facility] [place] [address] Referring Family Medicine 01/05/24 Eugenio Ramirez CNP [address] [id number] [place] [address] Referring Family Medicine 05/27/24 documented as of this encounter
--- OUTSIDE RECORDS SUMMARY | 2025-02-20 11:58 | XMS_ITS | Encounter Summary ---
Author Organization [facility] Address [address] [place] [address] Care Team Providers Care Bodywork Therapist Name Role Phone Papo Morenoemmie Sol APRN.FABRICATION MANAGER Primary Care Provid er Laurie Muir BLASTING WORKER Unavailable Laurie Muir BLASTING WORKER Unavailable [phone] Eugenio Ramirez FABRICATION MANAGER Unavailable [phone] Source Comments In the event this information is protected by the Federal Confidentiality of Alcohol and Drug AbusePatient Records regulations: The Federal rules restrict any use of the information to criminally investigate or prosecute any alcohol or drug abuse patient.[facility] Encounter Details Date Type Department Care Team (Late st Contact Info) Description 05/27/2024 Patient Msg Referring Physician [address] [place] [phone] Provider, Ccf Referral Social History Tobacco Use Types Packs/Day Years [...] lower risk 1 0 01/15/2024 Data from: https://www.neighborhoodatlas.medicine.[facility]/. Last address used for calculation [address] 01/15/2024 Comments No Sex [...] on file documented as of this encounter Functional Status * Are you deaf or do you have serious difficulty hearing? Answer Date of Assessment Author No 11/27/2013 10:16 AM Brian Matias)(Hist), RN * Are you blind or do you have serious difficulty seeing, even when wearing glasses? Answer Date of Assessment Author No 11/27/2013 10:16 AM Brian Matias)(Hist), RN * Do you have serious difficulty walking or climbing stairs? Answer Date of Assessment Author Yes 11/27/2013 10:16 AM Brian Matias)(Hist), RN * Do you have difficulty dressing or bathing? Answer Date of Assessment Author No 11/27/2013 10:16 AM Brian Matias)(Hist), RN * Because of a physical, mental, or emotional condition, do you have difficulty doing errands alone such as visiting a doctor's office or shopping? Answer Date of Assessment Author No 11/27/2013 10:16 AM Brian Matias)(Hist), RN documented as of this encounter Mental Status * Because of a physical, mental, or emotional condition, do you have serious difficulty concentrating, remembering, or making decisions? Answer Entry Date Author No 11/27/2013 10:16 AM Brian Matias)(Hist), RN documented in this encounter Plan of Treatment Not on file documented as of this encounter Visit Diagnoses Not on filedocumented in this encounter Care Teams Bodywork Therapist Relationship Specialty Start Date End Date Isabelle Moreno APRN.FABRICATION MANAGER [address] [id number] [place] [address] PCP - General 05/30/23 Laurie Muir APRN [address] [place] [address] Referring Family Medicine 05/30/23 Laurie Muir APRN [address] [place] [address] Referring Family Medicine 01/05/24 Eugenio Ramirez CNP [address] [id number] [place] [address] Referring Family Medicine 05/27/24 documented as of this encounter
--- OUTSIDE RECORDS SUMMARY | 2025-02-20 11:58 | XMS_ITS | Patient Health Record ---
Author Organization [facility] in [place] Address [address] [place] [address] Care Team Providers Care Controls Operator Molded Goods Name Role Phone Jovana Russell Primary Care Provider Allergies Allergen (clinical drug ingredient) Drug/Non Drug Allergy documented on EMR Reaction Allergy Type Onset Date Status codeine Codeine hives Drug Allergy Active Penicillin swelling Drug Allergy Active Results Component Value Reference Range Notes GLYCOHEMOGLOBIN A1C Reviewed date:12/04/2024 03:46:46 PM Interpretation: Performing Lab: Notes/Report: [facility] , Glycohemoglobin A1C 7.9 4.5-6.2 % ADA THERAPEUTIC TARGET < 7.0 ACTION SUGGESTED ADA RECOMMENDED LIMIT 4.0 - 6.0 > 7.0 Estimated Average Glucose 180 Performing Lab: see note - [facility] LB T4 Reviewed date:09/02/2024 10:27:53 AM Interpretation: Performing Lab: Notes/Report: [facility] , T4 Thyroxine 7.70 4.80-13.90 ug/dL Performing Lab: see note ML - [facility] LB TSH Reviewed date:09/02/2024 10:27:53 AM Interpretation: Performing Lab: Notes/Report: [facility] , Thyroid Stimulating Hormone 3.113 0.358-3.740 u IU/mL Performing Lab: see note - [facility] LB Antinuclear Antibodies Direc t Reviewed date:09/02/2024 10:27:53 AM Interpretation: Performing Lab: Notes/Report: [facility] , Antinuclear Antibodies Direct Negative Negative [address] [place], [place] [id number] Performed at: [facility] Operating Table Assembler: Johnathon Neville PhD, Phone: [phone] Performing Lab: see note [facility] LB Antistreptolysin O Ab Reviewed date:09/02/2024 10:27:53 AM Interpretation: Performing Lab: Notes/Report: [facility] , Antistreptolysin O Ab 29.8 0.0-200.0 IU/mL [address] [place], [place] [id number] Performed at: [facility] Operating Table Assembler: Johnathon Neville PhD, Phone: [phone] Performing Lab: see note [facility] URIC ACID SERUM Reviewed date:09/02/2024 10:27:53 AM Interpretation: Performing Lab: Notes/Report: [facility] , Uric Acid 4.3 2.6-6.0 mg/dL Performing Lab: see note [facility] LB RHEUMATOID FACTOR Reviewed date:09/02/2024 10:27:53 AM Interpretation: Performing Lab: Notes/Report: [facility] , Rheumatoid Factor (RF) 13.5 <14.0 IU/mL Performing Lab: see note [facility] LB PROF 14(COMP METB) Reviewed date:09/02/2024 10:27:53 AM Interpretation: Performing Lab: Notes/Report: [facility] , Sodium 137 136-145 mmol/L Potassium 3.8 3.5-5.1 mmol/L Chloride 100 98-107 mmol/L Carbon Dioxide 26.7 21.0-32.0 mmol/L Anion Gap 14.1 Glucose 208 74-106 mg/dL Blood Urea Nitrogen 9.0 7.0-18.0 mg/dL Creatinine 0.89 0.55-1.02 mg/dL Estimated GFR ( Jeannie >60 >=60 mL/min/1.73m 2 Estimated GFR (Non- Yesenia >60 >=60 mL/min/1.73m 2 BUN Creatinine Ratio 10.1 Calcium 8.9 8.5-10.1 mg/dL Bilirubin Total 0.5 0.2-1.0 mg/dL Aspartate Amino Transferase 22 15-37 U/L Alanine Aminotransferase 27 14-59 U/L Alkaline Phosphatase 64 46-116 U/L Total Protein 7.9 6.4-8.2 g/dL Albumin Level 3.5 3.4-5.0 g/dL Globulin 4.4 Albumin Globulin Ratio 0.8 Performing Lab: see note ML - [facility] LIPID PROFILE Reviewed date:09/02/2024 10:27:53 AM Interpretation: Performing Lab: Notes/Report: [facility] , Triglycerides 264 <=150 mg/dL Cholesterol 147 <=200 mg/dL HDL Cholesterol 45 40-60 mg/dL <40 mg/dl - HIGH CARDIOVASCULAR RISK > or =60 mg/dl - LOW CARDIOVASCULAR RISK LDL Cholesterol Calculated 50.0 >190 mg/dl VERY HIGH 130-159 mg/dl BORDERLINE HIGH <100 mg/dl OPTIMAL 160-189 mg/dl HIGH 100-129 mg/dl NEAR OR ABOVE OPTIMAL VLDL CHOLESTEROL 52.8 Chol HDL Ratio 3.3 >11.0 HIGH RISK 3.3 - 4.4 LOW RISK 7.1 - 11.0 MODERATE RISK 4.4 - 7.1 AVERAGE RISK Performing Lab: see note ML - [facility] INSULIN Reviewed date:09/02/2024 10:27:53 AM Interpretation: Performing Lab: Notes/Report: [facility] , Insulin 39.4 2.6-24.9 uIU/mL Operating Table Assembler: Johnathon Neville PhD, Phone: [phone] [address] [place], [place] [id number] Performed at: [facility] Performing Lab: see note - [facility] LB GLYCOHEMOGLOBIN A1C Reviewed date:09/02/2024 10:27:53 AM Interpretation: Performing Lab: Notes/Report: [facility] , Glycohemoglobin A1C 12.3 4.5-6.2 % ADA THERAPEUTIC TARGET < 7.0 > 7.0 ADA RECOMMENDED LIMIT 4.0 - 6.0 ACTION SUGGESTED Estimated Average Glucose 306 Performing Lab: see note ML - [facility] FREE T3 Reviewed date:09/02/2024 10:27:53 AM Interpretation: Performing Lab: Notes/Report: [facility] , Free T3 2.12 2.18-3.98 pg/mL Performing Lab: see note ML - [facility] LB CRP Reviewed date:09/02/2024 10:27:53 AM Interpretation: Performing Lab: Notes/Report: [facility] , C Reactive Protein <0.50 <=0.50 mg/dL Performing Lab: see note ML - [facility] LB CBC AUTO DIFF Reviewed date:09/02/2024 10:27:53 AM Interpretation: Performing Lab: Notes/Report: [facility] , White Blood Count 10.4 4.0-11.0 10 3/uL Red Blood Count 5.76 4.20-5.40 10 6/uL Hemoglobin 14.4 12.0-16.0 g/dL Hematocrit 45.2 36.0-48.0 % Mean Corpuscular Volume 78.5 81.0-99.0 fL Mean Corpuscular Hemoglobin 25.0 26.7-34.0 pg Mean Corpuscular HGB Conc 31.9 29.9-35.2 g/dL Red Cell Distribution Width 14.1 11.0-15.0 % Platelet Count 243 150-450 10 3/uL Mean Platelet Volume 9.8 9.5-13.5 fL Neutrophils Percent Auto 54.0 43.0-75.0 % Lymphocytes Percent Auto 37.0 20.5-60.0 % Monocytes Percent Auto 6.2 1.7-12.0 % Eosinophils Percent Auto 1.9 0.9-7.0 % Basophils Percent Auto 0.7 0.2-2.0 % Immature Granulocytes Pct Auto 0.2 0.0-0.5 % Neutrophils Absolute Auto 5.6 1.4-6.5 10 3/uL Lymphocytes Absolute Auto 3.9 1.2-3.8 10 3/uL Monocytes Absolute Auto 0.7 0.3-0.8 10 3/uL Eosinophils Absolute Auto 0.2 0.0-0.7 10 3/uL Basophils Absolute Auto 0.1 0.0-0.1 10 3/uL Immature Granulocytes Abs Auto 0.02 0.00-0.03 10 3/uL Performing Lab: see note ML - [facility] LB Reason For Referral Reason neuropathy Diagnosis 1 Neuropathy (G62.9) Referral Organization [facility] Referring Provider First Name Jovana Referring Provider Last Name Yvonne Referring Provider Speciality [facility] caio Referred Provider Rand Tubbs Referred Provider Specialty Neurology Referral Priority Routine Medications Medication SIG (Take, Route, Frequency, Duration) Notes Start Date End Date Status buPROPion HCl ER (XL) 150 MG TAKE 1 TABLET BY MOUTH EVERY DAY IN THE MORNING FOR 30 DAYS for 30 days Active Dexcom G7 Process Manufacturing Engineer - USE DIRECTED for 30 Active Dexcom G7 Sensor - as directed for 28 days 025 Active Gabapentin 300 MG 1 capsule Orally BID for 30 days 11/17/2024 Active Magnesium Glycinate 100 MG 2 capsules Or ally HS for 30 days 09/03/2024 Active metFORMIN HCl ER 500 MG TAKE 1 TABLET BY MOUTH TWICE DAILY WITH THE EVENING MEAL Oral for 90 days Active hydrOXYzine Pamoate 25 MG TAKE 1 CAPSULE BY MOUTH 3 TIMES A DAY NEEDED FOR 30 DAYS for 30 Active Jardiance 25 MG TAKE 1 TABLET BY JARAD TH EVERY MORNING FOR 90 DAYS for 90 Active Trulicity 3 MG/0.5ML ADMINISTER 3 MG UND ER THE SKIN EVERY WEEK Subcutaneous for 28 days Active Ondansetron HCl 4 MG TAKE 1 TABLET BY MO ARH EVERY DAY NEEDED FOR 30 DAYS for 30 Active Vraylar 1.5 MG 1 capsule Oral Once a day for 30 days Active Rosuvastatin Calcium 10 MG TAKE 1 TABLET BY MOUTH EVERY DAY Oral for 90 days Activ e Social History Tobacco Use: Social History Observation [...] ast year? No Points 0 Interpretation Negative Problems Problem Type SNOMED Code ICD Code Onset Dates Problem Status W/U Status Risk Notes Problem Hyperlipidemia (53694160) Hyperlipidemia (E78.5) Active confirmed Problem Hypertension (81210307) HTN (hypertension) (I10) Active confirmed Problem Insomnia (075642139) Insomnia (G47.00) Active confirmed Problem Neuropathy (700656463) Neuropathy (G62.9) Active confirmed Problem Diabetic neuropathy (791923354) Diabetic neuropathy (E11.40) Active confirmed Problem Bipolar disorder (57289797) Bipolar 1 disorder, depressed (F31.9) Active confirmed Problem Opioid dependence (37270743) 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) Active confirmed Problem Type II diabetes mellitus without complication (771867664) Diabetes (E11.9) Active confirmed Vital Signs Blood pressure diastolic 68 mm Hg 02/20/2025 Height 60 in 02/20/2025 Blood pressure systolic 110 mm Hg 02/20/2025 Weight 174 lbs 02/20/2025 BMI 33.98 kg/m2 02/20/2025 Encounters Encounter Location Date Provider Diagnosis [facility] [address] [place] [address] 07/25/2024 Jovana Russell Bipolar 1 disorder, depressed F31.9 [facility] [address] [place] [address] 09/02/2024 Jovana Russell [facility] [address] [facility] [place] [address] 09/29/2024 Jovana Russell [facility] [address] [place] [address] 11/24/2024 Jovana Russell [facility] [address] [place] [address] 12/01/2024 Jovana Russell Diabetes E11.9 [facility] [address] [place] [address] 12/04/2024 Jovana Russell [facility] [address] [place] [address] 12/16/2024 Jovana Russell Diabetes E11.9 [facility] [address] [facility] [place] [address] 01/20/2025 Jovana Russell Neuropathy G62.9 [facility] [address] [place] [address] 07/23/2024 Jovana Russell Bipolar 1 disorder, depressed F31.9 ; Diabetes E11.9 ; HTN (hypertension) I10 ; Hyperlipidemia E78.5 ; Methadone maintenance therapy patient F11.20 and Wellness examination Z00.00 [facility] [address] [place] [address] 09/03/2024 Jovana Russell Diabetes E11.9 and Insomnia G47.00 [facility] [address] [place] [address] 09/29/2024 Jovana Russell Nausea R11.0 and Diabetes E11.9 [facility] [address] [place] [address] 11/17/2024 Jovana Russell Depression F32.A ; Diabetes E11.9 and Neuropathy G62.9 [facility] [address] [place] [address] 02/20/2025 Jovana Russell Bipolar 1 disorder, depressed F31.9 and Diabetes E11.9 Assessments Encounter Date Diagnosis (ICD Code) Assessment Notes Treatment Notes Treatment Clinical Notes Section Notes 07/23/2024 Bipolar 1 disorder, depressed (ICD-10 - F31.9) increase vraylar dose? depressed mood 07/23/2024 Diabetes (ICD-10 - E11.9) 09/03/2024 Diabetes (ICD-10 - E11.9) one month fu A1c 3 months work on diet Patient educated on Diabetic diet... Reviewed Hypoglycemia / Hyperglycemia action plan: Instructed to call office if blood sugar above 350 or below 65 consecutively. Reviewed with patient the care home effects of Diabetes Mellitus on the body and organs. Instructed patient to check feet daily, wear socks daily, wear proper fitting shoes, lotion feet at night with no lotion between toes, powder between toes. Follow-up with podiatry Q6M and PRN. No toenail clipping except by Podiatry. Please bring glucase meter and record to each appointment, Please feel free to call if you have questions or concerns about management or condition. Please call 1 week before medications are depleted for refills. If you are instructed to be fasting for procedure or testing, please call for dosing instructions. 09/03/2024 Insomnia (ICD-10 - G47.00) discussed PRICE testing, defers for now 09/29/2024 Nausea (ICD-10 - R11.0) 11/17/2024 Depression (ICD-10 - F32.A) referral sheet given 11/17/2024 Diabetes (ICD-10 - E11.9) 02/20/2025 Bipolar 1 disorder, depressed (ICD-10 - F31.9) restart meds discussed tapering doses back up fu 1-2 m 07/25/2024 Bipolar 1 disorder, depressed (ICD-10 - F31.9) 12/01/2024 Diabetes (ICD-10 - E11.9) 12/16/2024 Diabetes (ICD-10 - E11.9) 01/20/2025 Neuropathy (ICD-10 - G62.9) 02/20/2025 Diabetes (ICD-10 - E11.9) 11/17/2024 Neuropathy (ICD-10 - G62.9) 09/29/2024 Diabetes (ICD-10 - E11.9) using CGM thinks eating better BS 140-180 did not bring recordings continue monitor has 2 doses left of 3 mg trulicity, report BS before needs refill, increase dose? 07/23/2024 HTN (hypertension) (ICD-10 - I10) 07/23/2024 Hyperlipidemia (ICD-10 - E78.5) 07/23/2024 Methadone maintenance therapy patient (ICD-10 - F11.20) weaning off she states 07/23/2024 Wellness examination (ICD-10 - Z00.00) ROS done exam done Plan Of Treatment Pending Test Test Name Order Date CMP (COMPLETE METABOLIC PANEL) 4 HEMOGLOBIN A1C (GLYCO) 02/20/2025 HEMOGLOBIN A1C (GLYCO) 07/23/2024 INSULIN, TOTAL 07/23/2024 LIPID PANEL (CHOL/TRIG/HDL/LDL) 07/23/20 CBC WITH DIFF 07/23/2024 HEMOGLOBIN A1C 11/17/2024 CHIO DIRECT 07/23/2024 ANTISTREPTOLYSIN O AB (ASO) 07/23/2024 CRP 07/23/2024 RHEUMATOID FACTOR 07/23/2024 URIC ACID SERUM 07/23/2024 THYROID PANEL (T4/TSH/FREE T3) 4 Insurance Providers Payer Name Payer Address Payer Phone Subscriber Number Group Number Insured Name Patient Relationship to Insured Coverage Start Date Coverage End Date [employer] [place] [employer] [address] [place] [address] [id number] Trish Frost Self - patient is the insured Medical (General) History Surgical History Surgery Date(Month/Year) Ingrown toenail removal 07/22/24 Tubes T&A Repair of right knee
--- OUTSIDE RECORDS SUMMARY | 2025-02-20 11:58 | XMS_ITS | Encounter Summary ---
Author Organization [facility] Address [address] [place] [address] Care Team Providers Care Production Maintenance Mechanic Name Role Phone Papo Morenoemmie Sol APRN.MEDIA CENTER DIRECTOR SCHOOL Primary Care Provid er Laurie Muir RABBIT DRESSER Unavailable Laurie Muir RABBIT DRESSER Unavailable [phone] Eugenio Ramirez MEDIA CENTER DIRECTOR SCHOOL Unavailable [phone] Source Comments In the event this information is protected by the Federal Confidentiality of Alcohol and Drug AbusePatient Records regulations: The Federal rules restrict any use of the information to criminally investigate or prosecute any alcohol or drug abuse patient.[facility] Encounter Details Date Type Department Care Team (Late st Contact Info) Description 04/02/2024 Patient Msg Neurology [address] [place] [address] Provider, Ccf EMG Order Social History Tobacco Use Types Packs/Day Years [...] lower risk 1 0 01/15/2024 Data from: https://www.neighborhoodatlas.[facility]/. Last address used for calculation [address] 01/15/2024 Comments No Sex and Gender [...] Assessment Author No 11/27/2013 10:16 AM Brian MatiasRn)(Hist), RN * Are you blind or do you have serious difficulty seeing, even when wearing glasses? Answer Date of Assessment Author No 11/27/2013 10:16 AM Brian MatiasRn)(Hist), RN * Do you have serious difficulty walking or climbing stairs? Answer Date of Assessment Author Yes 11/27/2013 10:16 AM Brian MatiasRn)(Hist), RN * Do you have difficulty dressing or bathing? Answer Date of Assessment Author No 11/27/2013 10:16 AM Brian MatiasRn)(Hist), RN * Because of a physical, mental, or emotional condition, do you have difficulty doing errands alone such as visiting a doctor's office or shopping? Answer Date of Assessment Author No 11/27/2013 10:16 AM Brian MatiasRn)(Hist), RN documented as of this encounter Mental Status * Because of a physical, mental, or emotional condition, do you have serious difficulty concentrating, remembering, or making decisions? Answer Entry Date Author No 11/27/2013 10:16 AM EDT David, Intimate (Rn)(Hist), RN documented in this encounter Plan of Treatment Not on file documented as of this encounter Visit Diagnoses Not on filedocumented in this encounter Care Teams Production Maintenance Mechanic Relationship Specialty Start Date End Date Isabelle Moreno APRN.MEDIA CENTER DIRECTOR [employer]CHOOL [address] [id number] [place] [address] PCP - General 05/30/23 Laurie Muir APRN [address] [place] [address] Referring Family Medicine 05/30/23 Laurie Muir APRN [address] [place] [address] Referring Family Medicine 01/05/24 Eugenio Ramirez CNP [address] [facility]. [id number] [address] Referring Family Medicine 05/27/24 documented as of this encounter
--- OUTSIDE RECORDS SUMMARY | 2025-02-20 11:58 | XMS_ITS | Encounter Summary ---
Author Organization [facility] Address [address] [id number] Care Team Providers Care Work Station Support Specialist Name Role Phone Marly Underwood MD Primary Care Provider Jaya Rosado MD Primary Care Provider [phone] Tomasa Fine MD Primary Care Provider [phone] Isabelle Moreno APRN.MANAGER WORKERS COMPENSATION Primary Care Provid er Laurie Muir APRN Unavailable Laurie Muir APRN Unavailable [phone] Eugenio Ramirez MANAGER WORKERS COMPENSATION Unavailable Source Comments In the event this information is protected by the Federal Confidentiality of Alcohol and Drug AbusePatient Records regulations: The Federal rules restrict any use of the information to criminally investigate or prosecute any alcohol or drug abuse patient.[facility] Encounter Details Date Type Department Care Team ([facility] st Contact Info) Description 11/09/2011 Patient Msg Medical Records [address] [phone] Provider, Ccf RE: Request an Appointment Social History Tobacco Use Types Packs/Day Years [...] on filedocumented in this encounter Care Teams Work Station Support Specialist Relationship Specialty [place] [address] [place] [address] PCP - General Internal Medicine 10/16/11 12/01/14 [place] [address] [place] [address] PCP - General Radiagraph Operator 12/02/14 12/02/15 [place] [address] [place] [address] PCP - General Family Medicine 12/03/15 05/29/23 Isabelle Moreno APRN.MANAGER WORKERS COMPENSATION [address] [id number] [address] PCP - General 05/30/23 Laurie Muir APRN [address] [place] [address] Referring Family Medicine 05/30/23 Laurie Muir APRN [address] [place] [address] Referring Family Medicine 01/05/24 Eugenio Ramirez CNP [address] [id number] [place] [address] Referring Family Medicine 05/27/24 documented as of this encounter
--- OUTSIDE RECORDS SUMMARY | 2025-02-20 11:58 | XMS_ITS | Encounter Summary ---
Author Organization [facility] Address [address] [address] Care Team Providers Care Student Specialist Name Role Phone Marly Underwood MD Primary Care Provider Jaya Rosado MD Primary Care Provider [phone] Tomasa Fine MD Primary Care Provider [phone] Isabelle Moreno APRN.MANUFACTURING ENGINEER MACHINING Primary Care Provid er Laurie Muir APRN Unavailable Laurie Muir APRN Unavailable [phone] Eugenio Ramirez MANUFACTURING ENGINEER MACHINING Unavailable Source Comments In the event this information is protected by the Federal Confidentiality of Alcohol and Drug AbusePatient Records regulations: The Federal rules restrict any use of the information to criminally investigate or prosecute any alcohol or drug abuse patient.[facility] Encounter Details Date Type Department Care Team ([facility] st Contact Info) Description 12/13/2012 Patient Msg Medical Records [address] [phone] Provider, Ccf RE: Request an Appointment Social History Tobacco Use Types Packs/Day Years Used Date Smoking Tobacco: Former Cigarettes Comments:sometimes couple ci garettes Alcohol Use [...] on filedocumented in this encounter Care Teams Student Specialist Relationship Specialty [place] [address] [place] [address] PCP - General Internal Medicine 10/16/11 12/01/14 [place] [address] [place] [address] PCP - General Hassock Maker 12/02/14 12/02/15 [place] [address] [place] [address] PCP - General Family Medicine 12/03/15 05/29/23 Isabelle Moreno APRN.MANUFACTURING ENGINEER MACHINING [address] [id number] [address] PCP - General 05/30/23 Laurie Muri APRN [address] [place] [address] Referring Family Medicine 05/30/23 Laurie Muir APRN [address] [place] [address] Referring Family Medicine 01/05/24 Eugenio Ramirez CNP [address] [id number] [place] [address] Referring Family Medicine 05/27/24 documented as of this encounter
--- OUTSIDE RECORDS SUMMARY | 2025-02-20 11:58 | XMS_ITS | Encounter Summary ---
Author Organization [facility] Address [address] [phone] Care Team Providers Care Building Pressure Washer Name Role Phone Marly Underwood MD Primary Care Provider Jaya Rosado MD Primary Care Provider [phone] Tomasa Fine MD Primary Care Provider Isabelle Moreno APRN.WAITER/WAITRESS INFORMAL Primary Care Provid er Laurie Muir APRN Unavailable Laurie Muir APRN Unavailable [phone] Eugenio Ramirez WAITER/WAITRESS INFORMAL Unavailable Source Comments In the event this information is protected by the Federal Confidentiality of Alcohol and Drug AbusePatient Records regulations: The Federal rules restrict any use of the information to criminally investigate or prosecute any alcohol or drug abuse patient.[facility] Encounter Details Date Type Department Care Team ([facility] st Contact Info) Description 10/17/2011 Patient Msg Medical Records [address] [phone] Provider, Ccf RE: Appointment Cancellation Request Social [...] on filedocumented in this encounter Care Teams Building Pressure Washer Relationship Specialty Start [place] [address] [place] [address] PCP - General Internal Medicine 10/16/11 12/01/14 [place] [address] [place] [address] PCP - General Financial Administrative Assistant 12/02/14 12/02/15 [place] [address] [place] [address] PCP - General Family Medicine 12/03/15 05/29/23 Isabelle Moreno APRN.WAITER/WAITRESS INFORMAL [address] [id number] [address] PCP - General 05/30/23 Laurie Muir APRN [address] [place] [address] Referring Family Medicine 05/30/23 Laurie Muir APRN [address] [place] [address] Referring Family Medicine 01/05/24 Eugenio Ramirez CNP [address] [id number] [place] [address] Referring Family Medicine 05/27/24 documented as of this encounter
--- OUTSIDE RECORDS SUMMARY | 2025-02-20 11:58 | XMS_ITS | Encounter Summary ---
Author Organization [facility] Address [address] [id number] Care Team Providers Care Plastic Tool Maker Name Role Phone Marly Underwood MD Primary Care Provider Jaya Rosado MD Primary Care Provider [phone] Tomasa Fine MD Primary Care Provider Isabelle Moreno APRN.AVIONICS INSTALLER Primary Care Provid er Laurie Muir APRN Unavailable [phone] Laurie Muir APRN Unavailable [phone] Eugenio Ramirez AVIONICS INSTALLER Unavailable Source Comments In the event this information is protected by the Federal Confidentiality of Alcohol and Drug AbusePatient Records regulations: The Federal rules restrict any use of the information to criminally investigate or prosecute any alcohol or drug abuse patient.[facility] Encounter Details Date Type Department Care Team ([facility] Contact Info) Description 08/22/2013 Patient Msg Medical Records [address] [id number] Provider, [facility] RE: Patient Registration Completed Social [...] on filedocumented in this encounter Care Teams Plastic Tool Maker Relationship Specialty [place] [address] [place] [address] PCP - General Internal Medicine 10/16/11 12/01/[place] [address] [place] [address] PCP - General [place] 12/02/14 12/02/15 [place] [address] [place] [address] PCP - General Family Medicine 12/03/15 05/29/23 Isabelle Moreno APRN.AVIONICS INSTALLER [address] [id number] [address] PCP - General 05/30/23 Laurie Muir APRN [address] [place] [address] Referring Family Medicine 05/30/23 Laurie Muir APRN [address] [facility] [place] [address] Referring Family Medicine 01/05/24 Eugenio Ramirez CNP [address] [id number] [place] [address] Referring Family Medicine 05/27/24 documented as of this encounter
--- OUTSIDE RECORDS SUMMARY | 2025-02-20 12:16 | XMS_ITS | CCD ---
Author Organization [facility] Care Team Providers Care Star Route Mail Driver Name Role Phone Pablo Cuadra MD, Marly Primary Care Provider Jaya Rosado Primary Care Provider Tomasa Fine MD Primary Care Provider [phone] PROVIDER, UNKNOWN Attending Unavailable PROVIDER, UNKNOWN Admitting Unavailable PATIENT, SELF Referring Unavailable KASANDRA Fregoso Attending Provider None, Dr Primary Care Provider UnavailMaria Esther Archer Attending Unavailable None, Primary Care Unavailable None, Primary Care Unavailable Maria Esther Fregoso Attending Unavailable Josh QUARLES.Isabelle CHRISTENSEN Primary Care Provid er Laurie Muir APRN Unavailable Laurie Muir APRN Unavailable [phone] PAMELA CLEANING Attending Unavailable ISABELLE MORENO Primary Care Unavailable LAURIE MUIR Referring Unavailable Unavailable Primary Care Provider UnavailNOAH Zapata Attending Unavailable NOAH WALLER Attending Unavailable Allergies Allergy Classification Reported Allergen(s) Allergy Type Date of Onset Reaction(s) Facility Acetaminophen / dichloralphenazone / isometheptene (3 sources) Acetaminophen / dichloralphenazone / isometheptene Drug Allergy 013 [facility] Work Phone: Penicillins (antibiotic) (3 sources) Amoxicillin Drug Allergy 013 [facility] Unclassified (10 sources) Tylenol-Codeine #2; Translations: [TYLENOL-CODEINE #2] Drug Allergy 012 Hives, Swelling [facility] (8 sources) Amoxicillin; Translations: [AMOXICILLIN] Drug Allergy 013 Swelling [facility] Repository (1 source) Opioid Agonists; Translations: [OPIOID ANALGESICS] Propensity to adverse reactions to drug (disorder) 004 [facility] Repository (7 sources) Acetaminophen / dichloralphenazone / isometheptene; Translations: [WNUGCWJ-DXVUZLYTE-L CETAMINOPHN] Drug [facility] 013 [facility] Work Phone: Medications Current Medications Medication Drug [...] Comment on above: Take 1 capsule by [facility] once daily. ONETOUCH ULTRA2 METER (8 sources) [...] four times daily as needed. for pain. [id number] 0.3 ml EPINEPHrine 1 mg/ml auto-injector (2 [...] Test Name Value Interpretation Reference Range Facility [facility] 02-20-2024 [facility] Telephone (ELPIDIO) LIAM DIAZ ([id number]) 1980 F Date Time Provider Department 02/20/24 MADISON HENDERSON During your visit today, we recorded the following information about you: Lakshmi Mercado 02/20/2024 1:22 PM Signed 1st attempt to reach about cancellation and rescheduling options for her [facility] appointment, left and sent [employer] message. Joya Stein 02/21/2024 10:00 AM Signed 2nd attempt. Left messge on about [facility] cancellation Dwight Stuart 02/21/2024 10:25 AM Signed Patient aware of cancellation, wants to reschedule on her own, given phone number Allergies As of Date: 02/20/2024 Noted Allergy Reaction AMOXICILLIN 07/15/2013 7 - Swelling MIDRIN ([id number] CETAMI*08/09/2012 4 - Hives TYLENOL-CODEINE #2 11/21/2011 [...] Encounter Status:Closed by DWIGHT STUART on 02/21/24 [facility] LIAM DIAZ ([id number]) 1980 F Date Time Provider Department 01/17/24 PAMELA CLEANING [facility] During your visit today, we recorded the following information about you: Pamela Mendosa 01/17/2024 9:35 AM Signed A prior authorization has been started for by the pharmacy. To submit the Prior Authorization, please follow the instructions below 1. Go to [email or web address] [email or web address]/isaak reeder AND click ?Enter a Vicente? 2. Enter the patient?s last name, date of and the vicente Vicente: [email or web address] 3. Complete the PA AND Click ?Send to Plan? for approval Prior authorization fax has been scanned to chart for further review. Shannon Goldman RN 01/17/2024 11:39 AM Signed (Vicente: [id number]) - [id number] Nurtec 75MG dispersible tablets Status: [place] Request Created: January 16, 2024 Sent: January 17, 2024 Jovana Treviño RN 01/24/2024 5:09 PM Signed Nurtec denied as preventative. Required to try Ajovy or Aimovig first. Allergies As of Date: 01/17/2024 Noted Allergy Reaction AMOXICILLIN 07/15/2013 7 - Swelling MIDRIN ([id number] CETAMI*08/09/2012 4 - Hives TYLENOL-CODEINE #2 11/21/2011 [...] Encounter Status:Closed by SHANNON GOLDMAN on 01/17/24 [facility] 01-15-2024 CNOV Office Visit (NEUTWN) LIAM DIAZ ([id number]) 1980 F Date Time Provider Department 01/15/24 8:30 AM PAMELA CLEANING During your visit today, we recorded the following information about you: Pulse Blood pressure Weight Height 125/minute 123/80 87.8 kg 1.524 m Pamela Cleaning APRN.CLIP RIVETER 01/16/2024 6:34 AM Addendum [facility] General Neurology New Patient visit chief complaint: [...] point injections and took medications. Moved to [place] but has since returned. States she did not receive treatment in [place] and symptoms got worse. Voices that she [...] depression. States that she saw neurologist in [place] and they wanted to do Botox and [...] and getti (more content not included)... Normal [facility] HBV Real Time PCR, Qton 01-04 HBV DNA PARIS+probe [Log units/Vol] TNP Normal . [facility] ([place]) Comment on above: Result Comment: Resu lt Units: log10 IU/mL Unable to calculate result since non-numeric result obtained for component test. Performed By: #### H BQB #### [facility] [address] HBV DNA PARIS+probe Qn Not detected Normal . [facility] ([place]) Comment on above: Performed By: #### H BQB #### [facility] [address] Reference Lab Test Reference Range Comment Normal . [facility] ([place]) Comment on above: Result Comment: The reportable range for this assay is 10 IU/mL to 1 billion IU/mL. Performed at: [facility] [id number] Accident Report Clerk: Naomi Croft MD, Phone: [phone] Performed By: #### H BQB #### [facility] [address] HBV e Ab SerPl Ql 01-17 HBV e Ab IA Ql Negative Normal Negative [facility] ([place]) Comment on above: Result Comment: Perf ormed at: [facility] [id number] Accident Report Clerk: Johnathon Neville PhD, Phone: [phone] Performed By: #### 1 3953-5 #### [facility] [address] HBV e Ag SerPl Ql IA01-17 HBV e Ag IA Ql Negative Normal Negative [facility] ([place]) Comment on above: Result Comment: Perf ormed at: [facility] [id number] Accident Report Clerk: Johnathon Neville PhD, Phone: [phone] Performed By: #### P TINR #### [facility] [address] [place], [place] [id number] HCV Genotyping Non Reflexon 01-03-2022 HCV genotype PARIS+probe Nom 1a Normal . [facility] ([place]) Comment on above: Performed By: #### P TINR #### [facility] [address] [place], [place] [address] Please note: Comment Normal . [facility] ([place]) Comment on above: Result Comment: This test was developed and its performance characteristics determined by [employer]. It has not been cleared or approved by the U.S. Food and Drug Administration. The FDA has determined that such clearance or approval is not necessary. This test is used for clinical purposes. It should not be regarded as investigational or for research. Performed at: [facility] [id number] Accident Report Clerk: Naomi Croft MD, Phone: [phone] Performed By: #### P TINR #### [facility] [address] [place] [address] HBV core Ab SerPl Ql IAon HBV core Ab IA Ql Positive Abnormal Negative [facility] ([place]) Comment on above: Result Comment: Perf ormed at: - [facility] [id number] Accident Report Clerk: Johnathon Neville PhD, Phone: [phone] Performed By: #### 1 3952-7 #### [facility] [address] HBV surface Ab Ser Qlon 12-05 HBV surface Ab Ql (S) Reactive Normal . [facility] ([place]) Comment on above: Result Comment: Non Reactive: Inconsistent with immunity, less than 10 mIU/mL Reactive: Consistent with immunity, greater than 9.9 mIU/mL Performed at: [address] [id number] Accident Report Clerk: Johnathon Neville PhD, Phone: [phone] Performed By: #### 2 2322-2 #### [address] [address] HCV Ab Ser Qlon 12-31-2021 HCV Ab Ql (S) >11.0 Abnormal 0.0-0.9 [facility] ([place]) Comment on above: Result Comment: Nega tive: < 0.8 Indeterminate: 0.8 - 0.9 Positive: > 0.9 HCV antibody alone does not differentiate between previous resolved infection and active infection. The CDC and current clinical guidelines recommend that a positive HCV antibody result be followed up with an HCV RNA test to support the diagnosis of acute HCV infection. [facility] offers Hepatitis C Virus (HCV) RNA, Diagnosis, PARIS (406686) and Hepatitis C Virus (HCV) Antibody with reflex to Quantitative Real-time PCR (239259). Performed at: [address] [id number] Accident Report Clerk: Johnathon Neville PhD, Phone: [phone] Performed By: #### 1 6128-1 #### [address] [address] HCV RT-PCR Quant (Non-Graph) on 12-31-2021 HCV RNA PARIS+probe [Log units/Vol] 5.538 Normal . [facility] ([place]) Comment on above: Result Comment: Resu lt Units: log10 IU/mL Performed By: #### P TINR #### [facility] [address] [place], [place] [address] (271) HCV RNA PARIS+probe Qn 379646 IU/mL Normal . [facility] ([place]) Comment on above: Performed By: #### P TINR #### [facility] [address] [place] [address] Test performance information Steven (Unsp spec) Comment Normal . [facility] ([place]) Comment on above: Result Comment: The quantitative range of this assay is 15 IU/mL to 100 million IU/mL. Performed at: [facility] [id number] Accident Report Clerk: Naomi Croft MD, Phone: [phone] Performed By: #### P TINR #### [facility] [address] [place], [place] [id number] HIV Ab/p24 Ag w/ Rflx [id number] on 12-31-2021 HIV 1+2 Ab+HIV1 p24 Ag IA Ql Non-Reactive Normal Non Reactive [facility] ([place]) Comment on above: Result Comment: HIV Negative HIV-1/HIV-2 antibodies and HIV-1 p24 antigen were NOT detected. There is no laboratory evidence of HIV infection. Performed at: [facility] [id number] Accident Report Clerk: Johnathon Neville PhD, Phone: [phone] Performed By: #### H IV #### [address] [address] Hep B Surface Antigenon 12-05 HBV surface Ag IA Ql Negative Normal Negative [facility] ([place]) Comment on above: Result Comment: Perf ormed at: [facility] [id number] Accident Report Clerk: Johnathon Neville PhD, Phone: [phone] Performed By: #### H BSAGA #### [address] [address] ALT (SGPT) ser/plason 2021 ALT [Catalytic activity/Vol] 50 U/L 10-54 [facility] Work Phone: Absolute lymphocyte counton 12-30-2021 Lymphocytes Auto (Unsp spec) [#/Vol] 3.5 10*3/uL 1.10-4.80 [facility] Work Phone: Albumin [Mass/volume] in Ser um or Plasmaon 12-30-2021 Albumin [Mass/Vol] 3.9 g/dL 3.4-4.8 [facility] Work Phone: Albumin/Globulin [Mass Ratio ] in Serum or Plasmaon 12-30-2021 Albumin/Globulin [Mass ratio] 0.9 {ratio} 1.1-2.2 [facility] Work Phone: Alkaline phosphatase [Enzyma tic activity/volume] in Serum or Plasmaon 12-30-2021 ALP [Catalytic activity/Vol] 106 U/L 42-121 [facility] Work Phone: Aspartate aminotransferase [ Enzymatic activity/volume] in Serum or Plasmaon 12-30-2021 AST [Catalytic activity/Vol] 53 U/L 10-41 [facility] Work Phone: Basophils Auto (Bld) [#/Vol] on 12-30-2021 Basophils (Bld) [#/Vol] 0.1 10*3/uL 0.00-0.20 [facility] Work Phone: Basophils/100 WBC Auto (Bld) on 12-30-2021 Basophils/100 WBC (Bld) 1.0 % 0.0-1.5 [facility] Work Phone: Bilirubin.total [Mass/volume ] in Serum or Plasmaon 12-30-2021 Bilirubin [Mass/Vol] 0.9 mg/dL 0.3-1.5 [facility] Work Phone: Blood prothrombin time (PT) by coagulation assayon 12-30-2021 PT Coag (Bld) [Time] 13.0 s 9.5-12.9 [facility] Work Phone: CBC W Auto Differential pane l (Bld)on 12-30-2021 Basophils (Bld) [#/Vol] 0.1 10*3/uL Normal 0.00-0.20 [facility] ([place]) Comment on above: Performed By: #### 5 7021-8 #### [facility] [address] [place] [address] Basophils/100 WBC (Bld) 1.0 % Normal 0.0-1.5 [facility] ([place]) Comment on above: Performed By: #### 5 7021-8 #### [facility] [address] [place] [address] CBC W Ordered Manual Differential panel (Bld) NO Normal [facility] ([place]) Comment on above: Performed By: #### 5 7021-8 #### [facility] [address] [place] [address] Eosinophils (Bld) [#/Vol] 0.2 10*3/uL Normal 0.00-0.33 [facility] ([place]) Comment on above: Performed By: #### 5 7021-8 #### [facility] [address] [place] [address] Eosinophils/100 WBC (Bld) 2.3 % Normal 0.0-3.0 [facility] ([place]) Comment on above: Performed By: #### 5 7021-8 #### [facility] [address] [place] [address] Erythrocyte distribution width (RBC) [Ratio] 14.6 % High 10.9-14.3 [facility] ([place]) Comment on above: Performed By: #### 5 7021-8 #### [facility] [address] [place] [address] Hematocrit (Bld) [Volume fraction] 40.6 % Normal 36.0-44.0 [facility] ([place]) Comment on above: Performed By: #### 5 7021-8 #### [facility] [address] [place] [address] Hemoglobin (Bld) [Mass/Vol] 13.5 g/dL Normal 12.0-15.0 [facility] ([place]) Comment on above: Performed By: #### 5 7021-8 #### [facility] [address] [place] [address] Lymphocytes Auto (Unsp spec) [#/Vol] 3.5 10*3/uL Normal 1.10-4.80 [facility] ([place]) Comment on above: Performed By: #### 5 7021-8 #### [facility] [address] [place] [address] Lymphocytes/100 WBC (Bld) 36.9 % Normal 24.0-44.0 [facility] ([place]) Comment on above: Performed By: #### 5 7021-8 #### [address] [address] MCH (RBC) [Entitic mass] 25.8 pg Low 28.0-34.0 [facility] ([place]) Comment on above: Performed By: #### 5 7021-8 #### [address] [address] MCHC (RBC) [Mass/Vol] 33.1 g/dL Normal 33.0-37.[address] [facility] ([place]) Comment on above: Performed By: #### 5 7021-8 #### [address] [address] MCV (RBC) [Entitic vol] 77.9 fL Low 80.0-100.0 [facility] ([place]) Comment on above: Performed By: #### 5 7021-8 #### [facility] [address] [place] [address] Monocytes (Bld) [#/Vol] 0.6 10*3/uL Normal 0.20-0.70 [facility] ([place]) Comment on above: Performed By: #### 5 7021-8 #### [address] [address] Monocytes/100 WBC (Bld) 6.3 % Normal 3.4-9.0 [facility] ([place]) Comment on above: Performed By: #### 5 7021-8 #### [address] [address] Neutrophils (Bld) [#/Vol] 5.1 10*3/uL Normal 1.83-8.70 [facility] ([place]) Comment on above: Performed By: #### 5 7021-8 #### [address] [address] Neutrophils/100 WBC (Bld) 53.5 % Normal 40.0-74.0 [facility] ([place]) Comment on above: Performed By: #### 5 7021-8 #### [facility] [address] [place] [address] Platelet mean volume (Bld) [Entitic vol] 9.5 fL Normal 7.4-10.4 [facility] ([place]) Comment on above: Performed By: #### 5 7021-8 #### [facility] [address] [place] [address] Platelets (Bld) [#/Vol] 181 10*3/uL Normal 150-450 [facility] ([place]) Comment on above: Performed By: #### 5 7021-8 #### [facility] [address] [place] [address] RBC (Bld) [#/Vol] 5.21 10*6/uL High 4.00-4.90 [facility] ([place]) Comment on above: Performed By: #### 5 7021-8 #### [address] [address] WBC (Bld) [#/Vol] 9.6 10*3/uL Normal 4.5-11.0 [facility] ([place]) Comment on above: Performed By: #### 5 7021-8 #### [address] [address] Carbon dioxide, total [Moles /volume] in Serum or Plasmaon 12-30-2021 CO2 [Moles/Vol] 26 mmol/L [facility] Work Phone: Chloride [Moles/volume] in S sim or Plasmaon 12-30-2021 Chloride [Moles/Vol] 94 mmol/L 98-107 [facility] Work Phone: Comprehensive metabolic 2000 panelon 12-30-2021 Albumin [Mass/Vol] 3.9 g/dL Normal 3.4-4.8 [facility] ([place]) Comment on above: Performed By: #### 2 4323-8 #### [facility] [address] [place] [address] Albumin/Globulin [Mass ratio] 0.9 {ratio} Low 1.1-2.2 [facility] ([place]) Comment on above: Performed By: #### 2 4323-8 #### [facility] [address] [place] [address] ALP [Catalytic activity/Vol] 106 U/L Normal 42-121 [facility] ([place]) Comment on above: Performed By: #### 2 4323-8 #### [facility] [address] [place] [address] ALT [Catalytic activity/Vol] 50 U/L Normal 10-54 [facility] ([place]) Comment on above: Performed By: #### 2 4323-8 #### [facility] [address] [place] [address] Anion gap [Moles/Vol] 9.0 mmol/L Normal 3-[address] [facility] ([place]) Comment on above: Performed By: #### 2 4323-8 #### [facility] [address] [place] [address] AST [Catalytic activity/Vol] 53 U/L High 10-41 [facility] ([place]) Comment on above: Performed By: #### 2 4323-8 #### [facility] [address] [place] [address] Bilirubin [Mass/Vol] 0.9 mg/dL Normal 0.3-1.5 [facility] ([place]) Comment on above: Performed By: #### 2 4323-8 #### [facility] [address] [place] [address] Calcium [Mass/Vol] 9.0 mg/dL Normal 8.5-10.5 [facility] ([place]) Comment on above: Performed By: #### 2 4323-8 #### [address] [address] Chloride [Moles/Vol] 94 mmol/L Low 98-107 [facility] ([place]) Comment on above: Performed By: #### 2 4323-8 #### [address] [address] CO2 [Moles/Vol] 26 mmol/L Normal 21-31 [facility] ([place]) Comment on above: Performed By: #### 2 432-8 #### [address] [address] Creatinine [Moles/Vol] 0.7 mg/dL Normal 0.4-1.0 [facility] ([place]) Comment on above: Performed By: #### 2 4322-8 #### [address] [address] Creatinine and Glomerular filtration rate.predicted panel (S/P/Bld) 111 mL/min Normal >60 [facility] ([place]) Comment on above: Performed By: #### 2 4323-8 #### [address] [address] GFR/1.73 sq M.predicted among non-blacks MDRD (S/P/Bld) [Vol rate/Area] 92 mL/min/{1.73_m2} Normal >60 [facility] ([place]) Comment on above: Performed By: #### 2 4323-8 #### [address] [address] Globulin (S) [Mass/Vol] 4.2 g/dL High 1.9-3.9 [facility] ([place]) Comment on above: Performed By: #### 2 4323-8 #### [facility] [address] [place] [address] Glucose [Mass/Vol] 329 mg/dL High 70-99 [facility] ([place]) Comment on above: Performed By: #### 2 4323-8 #### [facility] [address] [place] [address] Potassium [Moles/Vol] 3.4 mmol/L Low 3.6-5.[address] [facility] ([place]) Comment on above: Performed By: #### 2 4323-8 #### [facility] [address] [place] [address] Protein [Mass/Vol] 8.1 g/dL High 5.9-7.8 [facility] ([place]) Comment on above: Performed By: #### 2 4323-8 #### [facility] [address] [place] [address] Sodium [Moles/Vol] 129 mmol/L Low 135-145 [facility] ([place]) Comment on above: Performed By: #### 2 4323-8 #### [facility] [address] [place] [address] Urea nitrogen [Mass/Vol] 6 mg/dL Low 8-21 [facility] ([place]) Comment on above: Performed By: #### 2 4323-8 #### [facility] [address] [place] [address] Creatinine and Glomerular fi ltration rate.predicted panel (S/P/Bld)on 12-30-2021 GFR/1.73 sq M.predicted MDRD (S/P/Bld) [Vol rate/Area] 111 mL/min/{1.73_m2} >60 [facility] Work Phone: Eosinophils Auto (Bld) [#/Vo l]on 12-30-2021 Eosinophils (Bld) [#/Vol] 0.2 10*3/uL 0.00-0.33 [facility] Work Phone: Eosinophils/100 WBC Auto (Bl d)on 12-30-2021 Eosinophils/100 WBC (Bld) 2.3 % 0.0-3.0 [facility] Work Phone: Erythrocyte distribution wid th Auto (RBC) [Ratio]on 12-30-2021 Erythrocyte distribution width (RBC) [Ratio] 14.6 % 10.9-14.3 [facility] Work Phone: Estimated glomerular filtrat ion rate (GFR) non- Americanon 12-30-2021 GFR/1.73 sq M.predicted among non-blacks MDRD (S/P/Bld) [Vol rate/Area] 92 mL/min/{1.73_m2} >60 [facility] Work Phone: Hematocrit Auto (Bld) [Volum e fraction]on 12-30-2021 Hematocrit (Bld) [Volume fraction] 40.6 % 36.0-44.0 [facility] Work Phone: Hemoglobin [Mass/volume] in Bloodon 12-30-2021 Hemoglobin (Bld) [Mass/Vol] 13.5 g/dL 12.0-15.0 [facility] Work Phone: Lymphocytes/100 WBC Auto (Bl d)on 12-30-2021 Lymphocytes/100 WBC (Bld) 36.9 % 24.0-44.0 [facility] Work Phone: MCH Auto (RBC) [Entitic mass ]on 12-30-2021 MCH (RBC) [Entitic mass] 25.8 pg 28.0-34.0 [facility] Work Phone: MCHC Auto (RBC) [Mass/Vol]on 12-30-2021 MCHC (RBC) [Mass/Vol] 33.1 g/dL 33.0-37.[address] [facility] Work Phone: MCV (mean corpuscular volume ) determinationon 12-30-2021 MCV (RBC) [Entitic vol] 77.9 fL 80.0-100.0 [facility] Work Phone: Miscellaneous [place] 12-05 CPT Code Normal [facility] ([place]) Comment on above: Order Comment: HEP C VIRUS QUANT [id number] cpt 48061 Result Comment: INCO RRECT TEST Performed By: #### P TINR #### [address] [address] Fregoso Normal [facility] ([place]) Comment on above: Order Comment: HEP C VIRUS QUANT [id number] cpt [id number] Result Comment: INCO RRECT TEST Performed By: #### P TINR #### [facility] [address] [place] [address] Result [facility] ([place]) Comment on above: Order Comment: HEP C VIRUS QUANT [id number] cpt 11164 Result Comment: INCO RRECT TEST Performed By: #### P TINR #### [address] [address] Test Name Normal [facility] ([place]) Comment on above: Order Comment: HEP C VIRUS QUANT [id number] cpt 23902 Result Comment: INCO RRECT TEST Performed By: #### P TINR #### [facility] [address] [place] [address] Monocytes Auto (Bld) [#/Vol] on 12-30-2021 Monocytes (Bld) [#/Vol] 0.6 10*3/uL 0.20-0.70 [facility] Work Phone: Monocytes/100 WBC Auto (Bld) on 12-30-2021 Monocytes/100 WBC (Bld) 6.3 % 3.4-9.0 [facility] Work Phone: Neutrophils Auto (Bld) [#/Vo l]on 12-30-2021 Neutrophils (Bld) [#/Vol] 5.1 10*3/uL 1.83-8.70 [facility] Work Phone: Neutrophils/100 WBC Auto (Bl d)on 12-30-2021 Neutrophils/100 WBC (Bld) 53.5 % 40.0-74.0 [facility] Work Phone: Platelet mean volume Auto (B ld) [Entitic vol]on 12-30-2021 Platelet mean volume (Bld) [Entitic vol] 9.5 fL 7.4-10.4 [facility] Work Phone: Platelet poor plasma interna tional normalized ratio (INR) by coagulation assay (relaton 12-30-2021 INR Coag (PPP) [Relative time] 1.17 {INR} 0.80-2.00 [facility] Work Phone: Platelets Auto (Bld) [#/Vol] on 12-30-2021 Platelets (Bld) [#/Vol] 181 10*3/uL 150-450 [facility] Work Phone: Potassium [Moles/volume] in Serum or Plasmaon 12-30-2021 Potassium [Moles/Vol] 3.4 mmol/L 3.6-5.[address] [facility] Work Phone: Prothrombin Time INR w/o Cou mon 12-30-2021 INR Coag (PPP) [Relative time] 1.17 {INR} Normal 0.80-2.00 [facility] ([place]) Comment on above: Performed By: #### P TINR #### [facility] [address] [place] [address] PT Coag (Bld) [Time] 13.0 s High 9.5-12.9 [facility] ([place]) Comment on above: Performed By: #### P TINR #### [facility] [address] [place] [address] RBC Auto (Bld) [#/Vol]on RBC (Bld) [#/Vol] 5.21 10*6/uL 4.00-4.90 [facility] Work Phone: Serum globulin measurement ( mass/volume)on 12-30-2021 Globulin (S) [Mass/Vol] 4.2 g/dL 1.9-3.9 [facility] Work Phone: Serum glucose measurement (m ass/volume)on 12-30-2021 Glucose [Mass/Vol] 329 mg/dL 70-99 [facility] Work Phone: Serum or plasma anion gap de termination (moles/volume)on 12-30-2021 Anion gap [Moles/Vol] 9.0 mmol/L 3-[address] [facility] Work Phone: Serum or plasma calcium genna urement (mass/volume)on 12-30-2021 Calcium [Mass/Vol] 9.0 mg/dL 8.5-10.5 [facility] Work Phone: Serum or plasma creatinine m easurement (moles/volume)on 12-30-2021 Creatinine [Moles/Vol] 0.7 mg/dL 0.4-1.0 [facility] Work Phone: Serum or plasma sodium measu rement (moles/volume)on 12-30-2021 Sodium [Moles/Vol] 129 mmol/L 135-145 [facility] Work Phone: Serum or plasma urea nitroge n measurement (mass/volume)on 12-30-2021 Urea nitrogen [Mass/Vol] 6 mg/dL 8-21 [facility] Work Phone: Total protein bloodon 2021 Protein [Mass/Vol] 8.1 g/dL 5.9-7.8 [facility] Work Phone: US abdomen limitedon 022 US abdomen limited [facility] [address] [place] [address] Ultrasound Report Signed Patient: VIRGILIOVANITAAmrita Wong MR#: [id number] : 1980 Acct:[id number] Age/Sex: 41 / F Admit Date: 12/30/21 Loc: [facility] Attending Dr: Maria Esther Fregoso PROPERTY MANAGER Ordering Physician: Maria Esther Fregoso NP Date of Service: 12/30/21 Procedure(s): US abdomen limited Accession Number(s): [id number] cc: Maria Esther Fregoso NP HISTORY: Hepatitis [...] 9 Signed By: Hank Farrar MD 12/30/21719 Web Content Editor: KEVEN Normal [facility] ([place]) WBC Auto (Bld) [#/Vol]on WBC (Bld) [#/Vol] 9.6 10*3/uL 4.5-11.0 [facility] Work Phone: ED.PDOCon 10-19-2020 ED.PDOC VALDEMAR ESCOBAR TI R Female [id number] Attending provider: [facility] [id number] Fabiana Yuen 1980 40 DOS: 10/19/20 Hx/Exam [...] Date/Time:10/19/20 1354 Electronically Signed Date/Time: 10/19/20 1501 [facility] LOWER EXT DVT LEFTon 021 LOWER EXT DVT LEFT VALDEMAR ESCOBAR TI R Female [id number] Ordering physician: Fabiana Yuen LOC:ER [id number] Attending physician: 1980 40 DO S: 10/19/20 Acc#: [id number] Exam/Proc: LOWER EXT DVT LEFT Dept: ULTRASOUND [...] 10/19/20 1352 Dictated Date/time: 10/19/20 1352 CC: [facility] ED.PDOCon 09-09-2020 ED.PDOC VALDEMAR ESCOBAR TI R Female [id number] Attending provider: [facility] ER [id number] Dallas Mendoza 1980 40 DOS: 09/09/20 Hx/Exam [...] MD Dictated Date/Time:09/09/201858 Electronically Signed Date/Time: 09/09/201939 [facility] Vital Signs Date Time Vital Sign Value Performing Clinician Facility 08-14-2024 13:48-0500 Body height 152.4 cm Noah Waller DPM Work Phone: [facility] 08-14-2024 13:48-0500 Body mass index (BMI) [Ratio] 36.13 kg/m2 Noah Waller DPM Work Phone: [facility] 08-14-2024 13:48-0500 Body weight 83.92 kg Noah Waller DPM Work Phone: [facility] 08-14-2024 13:48-0500 Respiratory rate 18 /min Noah Waller DPM Work Phone: [facility] 07-17-2024 15:37-0500 Body height 152.4 cm Noah Waller DPM Work Phone: [facility] 07-17-2024 15:37-0500 Body mass index (BMI) [Ratio] 36.13 kg/m2 Noah Waller DPM Work Phone: [facility] 07-17-2024 15:37-0500 Body weight 83.92 kg Noah Waller DPM Work Phone: [facility] 07-17-2024 15:37-0500 Respiratory rate 18 /min Noah Waller DPM Work Phone: [facility] 01-15-2024 08:37-0400 Diastolic blood pressure 80 mm[Hg] Pamela Dimare RAG BOILER.CLIP RIVETER Work Phone: [facility] Comment on above: right arm 01-15-2024 08:37-0400 Systolic blood pressure 123 mm[Hg] Pamela Dimare RAG BOILER.CLIP RIVETER Work Phone: [facility] Comment on above: right arm 01-15-2024 08:35-0400 Body height 152.4 cm Pamela Dimare RAG BOILER.CLIP RIVETER Work Phone: [facility] 01-15-2024 08:35-0400 Body mass index (BMI) [Ratio] 37.8 kg/m2 Pamela Dimare RAG BOILER.CLIP RIVETER Work Phone: [facility] 01-15-2024 08:35-0400 Body weight 87.8 kg Pamela Cleaning ROBINA.CLIP RIVETER Work Phone: [facility] 01-15-2024 08:35-0400 Heart rate 125 /min Pamela Cleaning RAG BOILER.CLIP RIVETER Work Phone: [facility] 01-15-2024 08:35-0400 SaO2% (BldA) [Mass fraction] 98 % Pamela Cleaning RAG BOILER.CLIP RIVETER Work Phone: [facility] Encounters Encounter Date Encounter Type Care Provider [...] 2 diabetes mellitus without complication, unspecified whether prison insulin use ([facility]); Onychocryptosis; Toe pain, right Start: 07-17-2024 End: 07-17-2024 ambulatory NOAH WALLER Not Available Start: 07-17-2024 End: 07-17-2024 Office outpatient new 30 minutes Noah Waller DPM Work Phone: [facility] Comment on above: Onychocryptosis (Juli chencho Dx); Toe pain, right; Abscess of toe, right; Type 2 diabetes mellitus without complication, unspecified whether laborer marine terminal insulin use (CMS/HCC) Start: 07-17-2024 End: 07-17-2024 Bamboo flowsheet Noah Waller DPM Work Phone: [facility] Start: 07-17-2024 End: 07-17-2024 Bamboo flowsheet Noah A Sridhar DPM Work Phone: [facility] Start: 04-04-2024 End: 04-04-2024 Telephone encounter Pamela Dimroney RAG BOILER.CLIP RIVETER Work Phone: Neurology Start: 04-03-2024 End: 04-03-2024 Telephone encounter Pamela Dimroney RAG BOILER.CLIP RIVETER Work Phone: Neurology Comment on above: Medication Authoriza tion Start: 02-20-2024 Telephone encounter Madison Henderson MD Work Phone: Neurology Comment on above: Appointment Start: 02-01-2024 ambulatory Pamela Dimare RAG BOILER.CLIP RIVETER Work Phone: Neurology Comment on above: Thank you Start: 02-01-2024 Telephone encounter Pamela Gurmeet are RAG BOILER.CLIP RIVETER Work Phone: Neurology Comment on above: Opened In Error Start: 01-31-2024 ambulatory Pamela Dimare RAG BOILER.CLIP RIVETER Work Phone: Neurology Comment on above: Nertec Start: 01-17-2024 Telephone encounter Pamela Gurmeet are RAG BOILER.CLIP RIVETER Work Phone: Neurology Comment on above: Insurance Authorizat ion Start: 01-15-2024 End: 01-15-2024 ambulatory PAMELA DIMARE Facility:[facility] Start: 01-15-2024 End: 01-15-2024 Patient encounter procedure Pamela Hermila RAG BOILER.CLIP RIVETER Work Phone: Neurology Comment on above: Intractable migraine with aura without status migrainosus (Primary Dx); Numbness and tingling; Diplopia; Headache after cough Start: 01-16-2022 End: 01-16-[address] Maya Facility:[facility] Start: 12-30-2021 End: 12-30-2021 ambulatory Maria Esther Fregoso Facility:[facility] Start: 12-30-2021 End: 12-30-2021 Patient encounter procedure KASANDRA Fregoso Work Phone: [facility] Start: 01-24-2018 End: 01-24-2018 ambulatory UNKNOWN PROVIDER Facility:[facility] Start: 09-05-2013 End: 09-05-2013 Telephone encounter [...] DTaP,Tdap,Td Vaccine (3 - Td or Tdap) [facility] Start: 12-27-2026 Diabetes Screening Diabetes Screenin g [facility] Start: 04-06-2024 Influenza vaccination [facility] Start: 2024 Lipid panel Lipid Screening [facility] Start: 2024 Screening for malign ant neoplasm of colon [facility] Start: 02-25-2024 End: 02-25-2024 ambulatory 02/25/2024 12:30 PM EDT Procedure Neurology [address] [place] [address] Numbness and tingling [R20.0, R20.2] Neurology Comment on above: Numbness and tinglin g [R20.0, R20.2] Start: 02-15-2024 End: 02-15-2024 Patient encounter procedure 02/15/2024 1:30 PM EDT Appointment [facility] [address] [place] [address] Headache, chronic, new features or increased frequency [facility] Comment on above: Headache, chronic, n ew features or increased frequency Start: 01-28-2024 End: 01-28-2024 Patient encounter procedure 01/28/2024 1:00 PM EDT Office Visit [facility] [address] [place] [id number] Renetta Rivero, OD [address] [place], [place] [address] My vision is getting worse tung at night. Ophthalmology Comment on above: My vision is getting worse tung at night. Start: 04-06-2023 Covid-19 Vaccine ( season) Covid-19 Vaccine ( season) [facility] Start: 04-06-2021 Influenza vaccination INFLUENZ A (Season Ended) [facility] Start: 06-11-2020 Urine microalbumin profile DTAP,TDAP,TD (2 - Td or Tdap) [facility] Start: 2019 Mammography MAMMOGRAM [facility] Start: 2019 Screening for malign ant neoplasm of breast Mammogram Screening [facility] Start: 11-22-2014 PAP TESTING PAP TESTING [facility] Start: 11-22-2014 Screening for malign ant neoplasm of cervix Cervical Cancer Screening [facility] Start: 05-20-2013 HPV TESTING HPV TESTING [facility] Start: 1998 Hepatitis B Vaccine (1 of 3 - 19+ 3-dose series) Hepatitis B Vaccine (1 of 3 - 19+ 3-dose series) [facility] Start: 1997 Anxiety Screening Anxiety Screening [facility] Start: 1997 Depression Screening Depression Scre ening [facility] Start: 1997 HEPATITIS C SCREENING HEPATITIS C [facility] Start: 1997 Hepatitis C screening Hepatitis C [facility] Start: 1991 Adult depression screening assessment [facility] Start: 1985 Pneumococcal vaccination Pneum ococcal Vaccine (1 of 2 - PCV) [facility] End: 01-14-2025 EMG(NEURO/NI) EMG(NEURO/NI) EMG Routine Numbness and tingling 1 Occurrences starting 01/15/2024 until 01/14/2025 [facility] Comment on above: 1 Occurrences starti ng 01/15/2024 until 01/14/2025 Hepatitis B virus surface Ag [Units/volume] in Serum [facility] Work Phone: Hepatitis C virus Ab [Presence] in Serum [facility] Work Phone: Hepatitis C virus genotype [Identifier] in Serum or Plasma by PARIS with probe detection [facility] Work Phone: Hepatitis C virus RN A [Log #/volume] (viral load) in Unspecified specimen by PARSI with probe detection [facility] Work Phone: Hepatitis C virus RN A [log units/volume] (viral load) in Unspecified specimen by PARIS with probe detection [facility] Work Phone: HIV 1+2 Ab [Presence ] in Unspecified specimen by Immunoassay [facility] Work Phone: Laboratory data interpretation [facility] Work Phone: End: 02-13-2025 MR Brain WO and W contrast IV MRI BRAIN WO/W IVCON Radiology Routine Intractable migraine with aura without status migrainosus 1 Occurrences starting 01/15/2024 until 02/13/2025 [facility] Work Phone: Comment on above: 1 Occurrences starti ng 01/15/2024 until 02/13/2025 Immunizations Immunization Date Immunization Notes Care Provider Kaitlynn hernandez 05-03-2022 influenza virus vacc ine, unspecified formulation Pamela Cleaning APRN.CNP Work Phone: [facility] 06-12-2013 influenza virus vacc ine, unspecified formulation Phil Hurd DO Work Phone: [facility] 08-02-2012 influenza virus vacc ine, unspecified formulation Phil Hurd DO Work Phone: [facility] 06-11-2010 tetanus toxoid, redu thiago diphtheria toxoid, and acellular pertussis vaccine, adsorbed Phil Hurd DO Work Phone: [facility] Payers Date Payer Category Payer Private Health Insurance [facility] MEDICAID [id number] 2022 Medicaid [facility] MEDICAID [facility] PLAN MEDICAID [facility] [id number] 2022-Present [phone] [address] [place] [address] Medicaid [id number] 2022 Medicaid [id number] 2021 Medicaid [id number] 2021 Self-pay [id number] 2014 Medicaid [id number] 2013 Medicaid [employer] [id number] 2013-2016 Medicaid [id number] 2011 Private Health Insurance [employer] A ETNA CHOICE POS II [id number] 2011-2016 POS [id number] 2008 Unknown [id number] 1979 Unknown [id number] 1980 Unknown [id number] 1979 Unknown [id number] Unknown [id number] Unknown [id number] Social History Date Type Detail Facility Start: 08-18-2013 Tobacco smoking status NHIS Current every day smoker [facility] Work Phone: History of tobacco use Cigarette Smoker [facility] Work Phone: Start: 08-18-2013 End: 01-15-2024 Cigarettes smoked current (pack per day) - Reported [facility] Start: 08-18-2013 Tobacco use and exposure [facility] Work Phone: Start: 08-18-2013 End: 03-19-2022 Alcohol intake Current drinker of alcohol (finding) [facility] Start: 08-18-2013 Tobacco Comment 3-4 ciggarettes daily [facility] Start: 1980 End: 1980 Sex Assigned At Not on file [facility] Start: 1980 Sex Assigned At Female [facility] Work Phone: Start: 01-12-2024 End: 01-15-2024 Patient Health Questionnaire 2 item (PHQ-2) [Reported] [facility] Adult Depression Screening Assessment 6 [facility] Start: 01-09-2024 Gender identity Identifies as female gender (finding) [facility] Start: 01-09-2024 Sexual orientation Heterosexual (finding) [facility] Tobacco smoking stat us GAIS Tobacco smoking consumption unknown [facility] Start: 07-17-2024 Tobacco smoking status NHIS Ex-smoker [facility] History of tobacco use Current smoker [facility] Start: 07-17-2024 End: 08-14-2024 Alcoholic beverage intake Defer [facility] Procedure Code Equipment Code Equipment Origin al Text Equipment Identifier Dates two times a day. [id number] Start: 12-28-2023 Clinical Notes 08-12-2013 to 07-17-2024 [...] History: Past Medical History: Diagnosis Date Diabetes ([facility]) Medications: Current Outpatient Medications: amitriptyline (Elavil) 10 [...] cool tibia to toes b/l NEURO: 5.07 [place] K[place] monofilament test intact to digits and forefoot bilaterally 125Hz tuning fork diminished to 1st MPJ bilaterally ORTHO: Ankle ROM less than 10 degrees b/l. Positive pain on palpation to right hallux ASSESSMENT 1. Onychocryptosis 2. Toe pain, right 3. Abscess of toe, right 4. Type 2 diabetes mellitus without complication, unspecified whether laborer marine terminal insulin use ([facility]) PLAN Patient educated today on proper diabetic [...] Noah Waller DPM documented in this encounter [facility] 04-04-2024 Telephone encounter Note Liam Escobar (Vicente: [id number]) - [id number] AJOVY (fremanezumab-vfrm) injection 225MG/1.5ML auto-injectors status: CROW Response - Approved Created: April 04, 2024 Sent: April 04, 2024 T [facility] 04-04-2024 Miscellaneous Notes Liam Escobar (Vicente: [id number]) - [id number] AJOVY (fremanezumab-vfrm) injection 225MG/1.5ML auto-injectors status: [place] Response - Approved Created: April 04, 2024 Sent: April 04, 2024 documented in this encounter [facility] 04-03-2024 Telephone encounter Note Liam Escobar (Vicente: [id number]) - [id number] AJOVY (fremanezumab-vfrm) injection 225MG/1.5ML auto-injectors status: [place] Request Created: April 03, 2024 Sent: April 03, 2024 [facility] 04-03-2024 Miscellaneous Notes Liam Escobar (Vicente: [id number]) - [id number] AJOVY (fremanezumab-vfrm) injection 225MG/1.5ML auto-injectors status: [place] Request Created: April 03, 2024 Sent: April 03, 2024 documented in this encounter [facility] 02-21-2024 Telephone encounter Note Patient aware of cancellation, wants to reschedule on her own, given phone number [facility] 02-21-2024 Miscellaneous Notes Patient aware of cancellation, wants to reschedule on her own, given phone number 2nd attempt. Left messge on about EMG cancellation 1st attempt to reach about cancellation and rescheduling options for her EMG appointment, left vm and sent Honeyt message. Lakshmi Rogelio documented in this encounter [facility] 02-21-2024 Telephone encounter Note 2nd attempt. Left messge on VM about EMG cancellation [facility] 02-20-2024 Telephone encounter Note 1st attempt to reach about cancellation and rescheduling options for her EMG appointment, left vm and sent MyChart message. Lakshmi Mercado [facility] 01-31-2024 Telephone encounter Note See reply to you. [facility] 01-31-2024 Miscellaneous Notes See reply to you. documented in this encounter [facility] 01-17-2024 Telephone encounter Note (Vicente: [id number]) - [id number] Nurtec 75MG dispersible tablets Status: [place] Request Created: January 16, 2024 Sent: January 17, 2024 [facility] 01-17-2024 Miscellaneous Notes (Vicente: [id number]) - [id number] Nurtec 75MG dispersible tablets Status: [place] Request Created: January 16, 2024 Sent: January 17, 2024 A prior authorization has been started for by the pharmacy. To submit the Prior Authorization, please follow the instructions below 1. Go to go.[email or web address]/login & click Enter a Vicente 2. Enter the patient s last name, date of and the vicente Vicente: [id number] 3. Complete the PA & Click Send to Plan for approval Prior authorization fax has been scanned to chart for further review. documented in this encounter [facility] 01-17-2024 Telephone encounter Note A prior authorization has been started for by the pharmacy. To submit the Prior Authorization, please follow the instructions below 1. Go to go.[email or web address]/login & click Enter a Vicente 2. Enter the patient s last name, date of and the vicente Vicente: [id number] 3. Complete the PA & Click Send to Plan for approval Prior authorization fax has been scanned to chart for further review. [facility] 01-15-2024 Instructions Pamela Cleaning APRN.CLIP RIVETER - 01/15/2024 9:20 AM EDT Preventative: Nurtec [...] prior to MRI. EMG You can call [phone] to schedule testing and any follow up [...] Feverfew: Feverfew is a common garden herb [place] to [place] and popular in [place] [...] pepperoni, Pickled mccarty Pods of broad kingsley (Greek beans, Malawian pea pods, Afghan (nikki) beans, byrnes and navy beans Ripe [...] much light. These can be obtained at [employer] or [employer]: see list above. 2. Limit use of acute treatments (cwln-bwf-azhcstt medications, triptans, etc.) to no more than [...] and quiet environment. Relax and reduce stress. Mrcljob4Yggcw is a free azael that can instruct you on some simple relaxtion and breathing techniques. Http://NotesFirst is a free website that provides teaching [...] and will be handling your phone calls, [employer] Messages and inquiries, if any. Unless explicitly told otherwise at the time of your office visit, your study results and ensuing treatment plans will be released via [employer] and discussed during your follow-up appointment. [employer]: Please ask the schedulers to give you an activation code. The main way of communication is by [employer] rather than phone lines, so if you have not signed up, please do so. Honeyt is also the way that you can review your labs and testing. We are not able to contact everyone to tell them results are normal. If you do not hear back from us regarding testing you have had, it should be considered normal or within normal range. If you have any questions about the results, you are free to message us. Honeyt is meant for simple questions regarding medications, possible side effects, or other simple straight forward questions in limited sentences, rather than multiple paragraphs of discussion. [employer] is not meant for, or efficient for [...] do not comment on most testing on [employer] in a message or commentary unless there [...] with this process. documented in this encounter [facility] 01-15-2024 History of Presen t illness Narrative Images from the original note were not included. [facility] New Patient visit chief [...] point injections and took medications. [place]oved to [place] but has since returned. States she did not receive treatment in [place] and symptoms got worse. Voices that she [...] depression. States that she saw neurologist in [place] and they wanted to do Botox and [...] jerk and symmetric Coordination: Finger-to- nose-finger and tkyd-qm-trxc intact bilaterally. No ataxia of arms. No [...] which included preparing to see the patient, aodd-tu-crbv patient care, completing clinical documentation, obtaining and/or reviewing separately obtained history, performing a medically appropriate examination, counseling and educating the patient/family/caregiver, and ordering medications, tests, or procedures. Pamela Cleaning APRN.[facility] General Neurology [address] [place] [address]. [phone] Appointment: [phone] 1. This office note has been dictated [...] a headache?: yes documented in this encounter [facility] 01-15-2024 Note HNO ID: [id number] Author: PAMELA CLEANING APRN.CNP Service: ? Author Type: Nurse Practitioner Type: Progress Notes Filed: 01/16/2024 06:34 Note Text: [facility] New Patient visit chief [...] point injections and took medications. Moved to [place] but has since returned. States she did not receive treatment in [place] and symptoms got worse. Voices that she [...] depression. States that she saw neurologist in [place] and they wanted to do Botox and [...] afternoon. amitriptyline (ELAVIL) (more content not included)... [facility] 09-05-2013 Miscellaneous Notes Called pt. Has improved. [...] elevating the leg. documented in this encounter [facility] 08-12-2013 History of Past i llness Narrative Problem Noted Date Resolved Date Tear of medial meniscus of knee 08/12/2013 10/13/2013 Cervical pain (neck) 10/16/2011 12/20/2012 Obesity in , antepartum 04/01/2010 10/16/2011 Gestational diabetes 12/21/2009 11/27/2011 High-risk 12/13/2009 10/16/2011 documented as of this encounter (statuses as of 12/01/2020) [facility] Work Phone: [facility] note* Diagnosis Intractable migraine with aura without status migrainosus- Primary Migraine with aura, with intractable migraine, so stated, without mention of status migrainosus Numbness and tingling Disturbance of skin sensation Diplopia Headache after cough [facility] Diagnosis Intractable migraine with aura without status migrainosus- Primary Migraine with aura, with intractable migraine, so stated, without mention of status migrainosus [facility]* Diagnosis Onychocryptosis- Primary Ingrowing nail Toe pain, right Pain in soft tissues of limb Abscess of toe, right Type 2 diabetes mellitus without complication, unspecified whether prison insulin use (CMS/HCC) [facility] Diagnosis Abscess of toe, right- Primary Type 2 diabetes mellitus without complication, unspecified whether laborer marine terminal insulin use (CMS/HCC) Onychocryptosis Ingrowing nail Toe [...] History: Past Medical History: Diagnosis Date Diabetes ([facility]) Medications: Current Outpatient Medications: amitriptyline (Elavil) 10 [...] 2 diabetes mellitus without complication, unspecified whether prison insulin use ([facility]) 3. Onychocryptosis 4. Toe pain, right PLAN [...] FoundDocuments on File Type Date Recorded Patient Service Consultant Expl anation Advance Directive(s) Advance Directive(s) 11/24/2016 2:49 PM Advance Directive(s) 12/03/2015 6:17 PM Chief Complaint and Reason for Visit Chief Complaint LAB,US Reason for Referral Specialty Diagnoses / Procedures Referred By Steve pugh Referred To Contact Diagnoses Intractable migraine with aura without status migrainosus Pamela Cleaning APRN.CLIP RIVETER [id number] [place] [id number] Referral ID Status Reason Start Date Expiration Date Visits Re quested Visits Authorized [id number] Closed 1 1 Specialty Diagnoses / Procedures Referred By Steve pugh [facility] Diagnoses Numbness and tingling Procedures EMG(NEURO/NI) NERVE CONDUCTION STUDIES 9-10 STUDIES Pamela Cleaning APRN.CLIP RIVETER [address] [place] [id number] [facility] [address] [place] [address] Referral ID Status Reason Start Date Expiration Date Visits Requested Visits Authorized [id number] Authorized Auto-Generat ed Referral 01/15/2024 01/14/2025 1 1 Specialty Diagnoses / Procedures Referred By Steve pugh Referred To Contact [facility] Diagnoses Intractable migraine with aura without status migrainosus Procedures MRI BRAIN WO/W IVCON MRI BRAIN BRAIN STEM W/O W/CONTRAST MATERIAL Pamela Cleaning APRN.CLIP RIVETER [address] [place] [address] [facility] [place] [address] Referral ID Status Reason Start Date Expiration Date Visits Requested Visits Authorized [id number] Pending Review Auto-Generat ed Referral 01/15/2024 02/13/2025 1 1 Referral ID Status Reason Start Date Expiration Date V isits Requested Visits Authorized [id number] Pending Review 1 1 Additional Source Comments INFORMATION SOURCE (unrecogn ized section and content) DATE CREATED AUTHOR 10/24/2020 [facility] DATE CREATED AUTHOR AUTHOR'S ORGANIZ ATION 08/23/2021 [facility] [employer] [facility] DATE CREATED AUTHOR AUTHOR'S ORGANIZ ATION 01/21/2022 [facility] ([place]) DATE CREATED AUTHOR AUTHOR'S ORGANIZ ATION 02/24/2024 [facility] DATE CREATED AUTHOR AUTHOR'S ORGANIZ ATION 08/19/2024 [facility] EPIC Source Comments (unrecognize d section and content) In the event this informatio n is protected by the Federal Confidentiality of Alcohol and Drug Abuse Patient Records regulations: The Federal rules restrict any use of the information to criminally investigate or prosecute any alcohol or drug abuse patient.[facility] the event this information is protected by the Federal Confidentiality of Alcohol and Drug Abuse Patient Records regulations: The Federal rules restrict any use of the information to criminally investigate or prosecute any alcohol or drug abuse patient.[facility] SystemIn the event this information is protected by the Federal Confidentiality of Alcohol and Drug Abuse Patient Records regulations: The Federal rules restrict any use of the information to criminally investigate or prosecute any alcohol or drug abuse patient.[facility] SystemIn the event this information is protected by the Federal Confidentiality of Alcohol and Drug Abuse Patient Records regulations: The Federal rules restrict any use of the information to criminally investigate or prosecute any alcohol or drug abuse patient.[facility] SystemIn the event this information is protected by the Federal Confidentiality of Alcohol and Drug Abuse Patient Records regulations: The Federal rules restrict any use of the information to criminally investigate or prosecute any alcohol or drug abuse patient.[facility] SystemIn the event this information is protected by the Federal Confidentiality of Alcohol and Drug Abuse Patient Records regulations: The Federal rules restrict any use of the information to criminally investigate or prosecute any alcohol or drug abuse patient.[facility] SystemIn the event this information is protected by the Federal Confidentiality of Alcohol and Drug Abuse Patient Records regulations: The Federal rules restrict any use of the information to criminally investigate or prosecute any alcohol or drug abuse patient.[facility] SystemIn the event this information is protected by the Federal Confidentiality of Alcohol and Drug Abuse Patient Records regulations: The Federal rules restrict any use of the information to criminally investigate or prosecute any alcohol or drug abuse patient.[facility] SystemIn the event this information is protected by the Federal Confidentiality of Alcohol and Drug Abuse Patient Records regulations: The Federal rules restrict any use of the information to criminally investigate or prosecute any alcohol or drug abuse patient.[facility] Reason for Visit (unrecogniz ed section and [...] Care Teams (unrecognized sec tion and content) [employer] Relationship Specialty Start Date End Date Isabelle Moreno APRN.CLIP RIVETER [address] [id number] [address] PCP - General 05/30/23 Laurie Muir, ROBINA [address] [address] Referring Family Medicine 05/30/23 Laurie Muir, ROBINA [address] [place] [address] Referring Family Medicine 01/05/24 [employer] Relationship Specialty Start Date End Date Isabelle Moreno APRN.CLIP RIVETER [address] [id number] [place] [address] PCP - General 05/30/23 Laurie Muir APRN [address] [place] [address] Referring Family Medicine 05/30/23 Laurie Muir APRN [address] [place] [address] Referring Family Medicine 01/05/24 [employer] Relationship Specialty Start Date End Date Isabelle Moreno APRN.CLIP RIVETER [address] [id number] [place] [address] PCP - General 05/30/23 Laurie Muir APRN [address] [place] [address] Referring Family Medicine 05/30/23 Laurie Muir APRN [address] [place] [address] Referring Family Medicine 01/05/24 [employer] Relationship Specialty Start Date End Date Isabelle Moreno APRN.CLIP RIVETER [address] [id number] [place] [address] PCP - General 05/30/23 Laurie Muir APRN [address] [place] [address] Referring Family Medicine 05/30/23 Laurie Muir APRN [address] [place] [address] Referring Family Medicine 01/05/24 [employer] Relationship Specialty Start Date End Date Isabelle Moreno APRN.CLIP RIVETER [address] [id number] [place] [address] PCP - General 05/30/23 Laurie Muir APRN [address] [place], [place] [id number] Referring Family Medicine 05/30/23 Laurie Muir APRN [address] [place] [address] Referring Family Medicine 01/05/24 [employer] Relationship Specialty Start Date End Date Isabelle Moreno APRN.CLIP RIVETER [address] [id number] [place] [address] PCP - General 05/30/23 Laurie Muir APRN [address] [place] [address] Referring Family Medicine 05/30/23 Laurie Muir APRN [address] [place] [address] Referring Family Medicine 01/05/24 [employer] Relationship Specialty Start Date End Date Isabelle Moreno APRN.CLIP RIVETER [address] [id number] [place] [address] PCP - General 05/30/23 Laurie Muir APRN [address] [place] [address] Referring Family Medicine 05/30/23 Laurie Muir APRN [address] [place], [place] [address] Referring Family Medicine 01/05/24 [employer] Relationship Specialty Start Date End Date Isabelle Moreno APRN.CLIP RIVETER [address] [id number] [place], [place] [address] PCP - General 05/30/23 Laurie Muir APRN [address] [place] [address] Referring Family [facility] 05/30/23 Laurie Muir APRN [address] [place], [place] [address] Referring Family Medicine 01/05/24 FOR RECORDS PERTAINING [...] BE BASED ON THE PRIMARY CLINICAL RECORDS. [facility]. provides no warranty or guarantee of the accuracy or completeness of information in this document.
== END 2025-02-20 11:55 | disposition home or self-care (01) ==
LOC: LAB 11:55
PROVIDERS: PCP Nurse Practitioner Family; Visit Provider Nurse Practitioner Family
DX: E11.9 Type 2 diabetes mellitus without complications (principal)
CPT/HCPCS: 36415; 83036

== ENCOUNTER 2025-03-13 18:43 | Emergency (ER) | payer OTHER, SELFPAY ==
--- OUTSIDE RECORDS SUMMARY | 2025-03-13 18:47 | XMS_ITS | CCD ---
Author Organization [facility] Care Team Providers Care Fruit Pitter Name Role Phone Pablo Cuadra MD, Marly [...] Care Provid er Laurie Muir APRN Unavailable [phone] Laurie Muir APRN Unavailable [phone] PAMELA CLEANING Attending Unavailable ISABELLE MORENO Primary Care Unavailable LAURIE MUIR Referring Unavailable Unavailable Primary Care Provider UnavailNOAH Zapata Attending Unavailable NOAH WALLER Attending Unavailable Allergies Allergy Classification Reported Allergen(s) Allergy Type Date of Onset Reaction(s) Facility Acetaminophen / dichloralphenazone / isometheptene (3 sources) Acetaminophen / dichloralphenazone / isometheptene Drug Allergy 013 [facility] Work Phone: Penicillins (antibiotic) (3 sources) Amoxicillin Drug Allergy 013 [facility] Unclassified (10 sources) Tylenol-Codeine #2; Translations: [TYLENOL-CODEINE #2] Drug Allergy 012 Hives, Swelling [facility] (8 sources) Amoxicillin; Translations: [AMOXICILLIN] Drug Allergy 013 Swelling [facility] Repository (1 source) Opioid Agonists; Translations: [OPIOID ANALGESICS] Propensity to adverse reactions to drug (disorder) 004 [facility] Repository (7 sources) Acetaminophen / dichloralphenazone / isometheptene; Translations: [DYUONPR-JULGNYUWK-L CETAMINOPHN] Drug [facility]ergy 013 [facility] Work Phone: Medications Current Medications Medication [...] Comment on above: Take 1 capsule by [facility] once daily. ONETOUCH ULTRA2 METER (8 sources) [...] four times daily as needed. for pain. [id number] 0.3 ml EPINEPHrine 1 mg/ml auto-injector (2 [...] Test Name Value Interpretation Reference Range Facility [facility] 02-20-2024 [facility] Telephone (ELPIDIO) LIAM DIAZ ([id number]) 1980 F Date Time Provider Department 02/20/24 MADISON HENDERSON During your visit today, we recorded the following information about you: Lakshmi Mercado 02/20/2024 1:22 PM Signed 1st attempt to reach about cancellation and rescheduling options for her EMG appointment, left and sent Cognotion message. Joya Stein 02/21/2024 10:00 AM Signed 2nd attempt. Left messge on about EMG cancellation Dwight Stuart 02/21/2024 10:25 AM Signed Patient aware of cancellation, wants to reschedule on her own, given phone number Allergies As of Date: 02/20/2024 Noted Allergy Reaction AMOXICILLIN 07/15/2013 7 - Swelling MIDRIN ([id number] CETAMI*08/09/2012 4 - Hives TYLENOL-CODEINE #2 11/21/2011 [...] Encounter Status:Closed by DWIGHT STUART on 02/21/24 [facility]) LIAM DIAZ ([id number]) 1980 F Date Time Provider Department 01/17/24 PAMELA CLEANING [facility] During your visit today, we recorded the following information about you: Pamela Mendosa 01/17/2024 9:35 AM Signed A prior authorization has been started for by the pharmacy. To submit the Prior Authorization, please follow the instructions below 1. Go to go.[employer]/isaak reeder AND click ?Enter a Vicente? 2. Enter the patient?s last name, date of and the vicente Vicente: [id number] 3. Complete the PA AND Click ?Send to Plan? for approval Prior authorization fax has been scanned to chart for further review. Shannon Goldman RN 01/17/2024 11:39 AM Signed (Vicente: [id number]) - [id number] Nurtec 75MG dispersible tablets Status: PA Request Created: January 16, 2024 Sent: January 17, 2024 Jovana Treviño RN 01/24/2024 5:09 PM Signed Nurtec denied as preventative. Required to try Ajovy or Aimovig first. Allergies As of Date: 01/17/2024 Noted Allergy Reaction AMOXICILLIN 07/15/2013 7 - Swelling MIDRIN ([id number] CETAMI*08/09/2012 4 - Hives TYLENOL-CODEINE #2 11/21/2011 [...] Encounter Status:Closed by SHANNON GOLDMAN on 01/17/24 [facility] 01-15-2024 [facility] Office Visit (NEUTWN) LIAM DIAZ ([id number]) 1980 F Date Time Provider Department 01/15/24 8:30 AM PAMELA CLEANING During your visit today, we recorded the following information about you: Pulse Blood pressure Weight Height 125/minute 123/80 87.8 kg 1.524 m Pamela Cleaning APRN.BROOMCORN THRESHER 01/16/2024 6:[address] [facility] General Neurology New Patient visit chief [...] point injections and took medications. Moved to [place] but has since returned. States she did not receive treatment in [place] and symptoms got worse. Voices that she [...] depression. States that she saw neurologist in [place] and they wanted to do Botox and [...] and getti (more content not included)... Normal [facility] HBV Real Time PCR, Qton 01-04 HBV DNA PARIS+probe [Log units/Vol] TNP Normal . [facility] ([place]) Comment on above: Result Comment: Resu lt Units: log10 IU/mL Unable to calculate result since non-numeric result obtained for component test. Performed By: #### H BQB #### [facility] [address] HBV DNA PARIS+probe Qn Not detected Normal . [facility] ([place]) Comment on above: Performed By: #### H BQB #### [facility] [address] Reference Lab Test Reference Range Comment Normal . [facility] ([place]) Comment on above: Result Comment: The reportable range for this assay is 10 IU/mL to 1 billion IU/mL. Performed at: [facility] [id number] Geriatric Nurse: Naomi Croft MD, Phone: [phone] Performed By: #### H BQB #### [facility] [address] HBV e Ab SerPl Ql 01-17 HBV e Ab IA Ql Negative Normal Negative [facility] ([place]) Comment on above: Result Comment: Perf ormed at: [facility] [employer] [id number] Geriatric Nurse: Johnathon Neville PhD, Phone: [phone] Performed By: #### 1 3953-5 #### [facility] [address] HBV e Ag SerPl Ql IA01-17 HBV e Ag IA Ql Negative Normal Negative [facility] ([place]) Comment on above: Result Comment: Perf ormed at: [facility] [id number] Geriatric Nurse: Johnathon Neville PhD, Phone: [phone] Performed By: #### P TINR #### [facility] [address] [place], [place] [id number] HCV Genotyping Non Reflexon 01-03-2022 HCV genotype PARIS+probe Nom 1a Normal . [facility] ([place]) Comment on above: Performed By: #### P TINR #### [facility] [address] [place], [place] [address] Please note: Comment Normal . [facility] ([place]) Comment on above: Result Comment: This test was developed and its performance characteristics determined by [employer]. It has not been cleared or approved by the U.S. Food and Drug Administration. The FDA has determined that such clearance or approval is not necessary. This test is used for clinical purposes. It should not be regarded as investigational or for research. Performed at: [facility] [address] [id number] Geriatric Nurse: Naomi Croft MD, Phone: [phone] Performed By: #### P TINR #### [facility] [address] [place] [address] HBV core Ab SerPl Ql IAon HBV core Ab IA Ql Positive Abnormal Negative [facility] ([place]) Comment on above: Result Comment: Perf ormed at: - [facility] [id number] Geriatric Nurse: Johnathon Neville PhD, Phone: [phone] Performed By: #### 1 3952-7 #### [address] [address] HBV surface Ab Ser Qlon 12-05 HBV surface Ab Ql (S) Reactive Normal . [facility] ([place]) Comment on above: Result Comment: Non Reactive: Inconsistent with immunity, less than 10 mIU/mL Reactive: Consistent with immunity, greater than 9.9 mIU/mL Performed at: [address] [id number] Geriatric Nurse: Johnathon Neville PhD, Phone: [phone] Performed By: #### 2 2322-2 #### [address] [address] HCV Ab Ser Qlon 12-31-2021 HCV Ab Ql (S) >11.0 Abnormal 0.0-0.9 [facility] ([place]) Comment on above: Result Comment: Nega tive: < 0.8 Indeterminate: 0.8 - 0.9 Positive: > 0.9 HCV antibody alone does not differentiate between previous resolved infection and active infection. The CDC and current clinical guidelines recommend that a positive HCV antibody result be followed up with an HCV RNA test to support the diagnosis of acute HCV infection. [facility] offers Hepatitis C Virus (HCV) RNA, Diagnosis, PARIS (368027) and Hepatitis C Virus (HCV) Antibody with reflex to Quantitative Real-time PCR (901167). Performed at: [address] [id number] Geriatric Nurse: Johnathon Neville PhD, Phone: [phone] Performed By: #### 1 6128-1 #### [address] [address] HCV RT-PCR Quant (Non-Graph) on 12-31-2021 HCV RNA PARIS+probe [Log units/Vol] 5.538 Normal . [facility] ([place]) Comment on above: Result Comment: Resu lt Units: log10 IU/mL Performed By: #### P TINR #### [facility] [address] [place], [place] [address] (967) HCV RNA PARIS+probe Qn 046364 IU/mL Normal . [facility] ([place]) Comment on above: Performed By: #### P TINR #### [facility] [address] [place] [address] Test performance information Steven (Unsp spec) Comment Normal . [facility] ([place]) Comment on above: Result Comment: The quantitative range of this assay is 15 IU/mL to 100 million IU/mL. Performed at: [facility] [employer] [id number] Geriatric Nurse: Naomi Croft MD, Phone: [phone] Performed By: #### P TINR #### [facility] [address] [place], [place] [id number] HIV Ab/p24 Ag w/ Rflx [id number] on 12-31-2021 HIV 1+2 Ab+HIV1 p24 Ag IA Ql Non-Reactive Normal Non Reactive [facility] ([place]) Comment on above: Result Comment: HIV Negative HIV-1/HIV-2 antibodies and HIV-1 p24 antigen were NOT detected. There is no laboratory evidence of HIV infection. Performed at: [facility] [employer] [id number] Geriatric Nurse: Johnathon Neville PhD, Phone: [phone] Performed By: #### H IV #### [address] [address] Hep B Surface Antigenon 12-05 HBV surface Ag IA Ql Negative Normal Negative [facility] ([place]) Comment on above: Result Comment: Perf ormed at: [facility] [employer] [id number] Geriatric Nurse: Johnathon Neville PhD, Phone: [phone] Performed By: #### H BSAGA #### [address] [address] ALT (SGPT) ser/plason 2021 ALT [Catalytic activity/Vol] 50 U/L 10-54 [facility] Work Phone: Absolute lymphocyte counton 12-30-2021 Lymphocytes Auto (Unsp spec) [#/Vol] 3.5 10*3/uL 1.10-4.80 [facility] Work Phone: Albumin [Mass/volume] in Ser um or Plasmaon 12-30-2021 Albumin [Mass/Vol] 3.9 g/dL 3.4-4.8 [facility] Work Phone: Albumin/Globulin [Mass Ratio ] in Serum or Plasmaon 12-30-2021 Albumin/Globulin [Mass ratio] 0.9 {ratio} 1.1-2.2 [facility] Work Phone: Alkaline phosphatase [Enzyma tic activity/volume] in Serum or Plasmaon 12-30-2021 ALP [Catalytic activity/Vol] 106 U/L 42-121 [facility] Work Phone: Aspartate aminotransferase [ Enzymatic activity/volume] in Serum or Plasmaon 12-30-2021 AST [Catalytic activity/Vol] 53 U/L 10-41 [facility] Work Phone: Basophils Auto (Bld) [#/Vol] on 12-30-2021 Basophils (Bld) [#/Vol] 0.1 10*3/uL 0.00-0.20 [facility] Work Phone: Basophils/100 WBC Auto (Bld) on 12-30-2021 Basophils/100 WBC (Bld) 1.0 % 0.0-1.5 [facility] Work Phone: Bilirubin.total [Mass/volume ] in Serum or Plasmaon 12-30-2021 Bilirubin [Mass/Vol] 0.9 mg/dL 0.3-1.[address] [facility] Work Phone: Blood prothrombin time (PT) by coagulation assayon 12-30-2021 PT Coag (Bld) [Time] 13.0 s 9.5-12.[address] [facility] Work Phone: CBC W Auto Differential pane l (Bld)on 12-30-2021 Basophils (Bld) [#/Vol] 0.1 10*3/uL Normal 0.00-0.20 [facility] ([place]) Comment on above: Performed By: #### 5 7021-8 #### [facility] [address] [place] [address] Basophils/100 WBC (Bld) 1.0 % Normal 0.0-1.5 [facility] ([place]) Comment on above: Performed By: #### 5 7021-8 #### [facility] [address] [place] [address] CBC W Ordered Manual Differential panel (Bld) NO Normal [facility] ([place] Comment on above: Performed By: #### 5 7021-8 #### [facility] [address] [place] [address] Eosinophils (Bld) [#/Vol] 0.2 10*3/uL Normal 0.00-0.33 [facility] ([place]) Comment on above: Performed By: #### 5 7021-8 #### [facility] [address] [place] [address] Eosinophils/100 WBC (Bld) 2.3 % Normal 0.0-3.0 [facility] ([place] Comment on above: Performed By: #### 5 7021-8 #### [facility] [address] [place] [address] Erythrocyte distribution width (RBC) [Ratio] 14.6 % High 10.9-14.3 [facility] ([place] Comment on above: Performed By: #### 5 7021-8 #### [facility] [address] [place] [address] Hematocrit (Bld) [Volume fraction] 40.6 % Normal 36.0-44.0 [facility] ([place] Comment on above: Performed By: #### 5 7021-8 #### [facility] [address] [place] [address] Hemoglobin (Bld) [Mass/Vol] 13.5 g/dL Normal 12.0-15.0 [facility] ([place] Comment on above: Performed By: #### 5 7021-8 #### [facility] [address] [place] [address] Lymphocytes Auto (Unsp spec) [#/Vol] 3.5 10*3/uL Normal 1.10-4.80 [facility] ([place] Comment on above: Performed By: #### 5 7021-8 #### [facility] [address] [place] [address] Lymphocytes/100 WBC (Bld) 36.9 % Normal 24.0-44.0 [facility] ([place] Comment on above: Performed By: #### 5 7021-8 #### [address] [address] MCH (RBC) [Entitic mass] 25.8 pg Low 28.0-34.0 [facility] ([place] Comment on above: Performed By: #### 5 7021-8 #### [address] [address] MCHC (RBC) [Mass/Vol] 33.1 g/dL Normal 33.0-37.0 [facility] ([place]) Comment on above: Performed By: #### 5 7021-8 #### [address] [address] MCV (RBC) [Entitic vol] 77.9 fL Low 80.0-100.0 [facility] ([place] Comment on above: Performed By: #### 5 7021-8 #### [facility] [address] [place] [address] Monocytes (Bld) [#/Vol] 0.6 10*3/uL Normal 0.20-0.70 [facility] ([place] Comment on above: Performed By: #### 5 7021-8 #### [address] [address] Monocytes/100 WBC (Bld) 6.3 % Normal 3.4-9.0 [facility] ([place] Comment on above: Performed By: #### 5 7021-8 #### [address] [address] Neutrophils (Bld) [#/Vol] 5.1 10*3/uL Normal 1.83-8.70 [facility] ([place] Comment on above: Performed By: #### 5 7021-8 #### [address] [address] Neutrophils/100 WBC (Bld) 53.5 % Normal 40.0-74.0 [facility] ([place] Comment on above: Performed By: #### 5 7021-8 #### [facility] [address] [place] [address] Platelet mean volume (Bld) [Entitic vol] 9.5 fL Normal 7.4-10.4 [facility] ([place]) Comment on above: Performed By: #### 5 7021-8 #### [facility] [address] [place] [address] Platelets (Bld) [#/Vol] 181 10*3/uL Normal 150-450 [facility] ([place] Comment on above: Performed By: #### 5 7021-8 #### [facility] [address] [place] [address] RBC (Bld) [#/Vol] 5.21 10*6/uL High 4.00-4.90 [facility] ([place] Comment on above: Performed By: #### 5 7021-8 #### [address] [address] WBC (Bld) [#/Vol] 9.6 10*3/uL Normal 4.5-11.0 [facility] ([place] Comment on above: Performed By: #### 5 7021-8 #### [address] [address] Carbon dioxide, total [Moles /volume] in Serum or Plasmaon 12-30-2021 CO2 [Moles/Vol] 26 mmol/L [facility] Work Phone: Chloride [Moles/volume] in S sim or Plasmaon 12-30-2021 Chloride [Moles/Vol] 94 mmol/L 98-[address] [facility] Work Phone: Comprehensive metabolic 2000 panelon 12-30-2021 Albumin [Mass/Vol] 3.9 g/dL Normal 3.4-4.8 [facility] ([place] Comment on above: Performed By: #### 2 4323-8 #### [facility] [address] [place] [address] Albumin/Globulin [Mass ratio] 0.9 {ratio} Low 1.1-2.2 [facility] ([place] Comment on above: Performed By: #### 2 4323-8 #### [facility] [address] [place] [address] ALP [Catalytic activity/Vol] 106 U/L Normal 42-121 [facility] ([place] Comment on above: Performed By: #### 2 4323-8 #### [facility] [address] [place] [address] ALT [Catalytic activity/Vol] 50 U/L Normal 10-54 [facility] ([place] Comment on above: Performed By: #### 2 4323-8 #### [facility] [address] [place] [address] Anion gap [Moles/Vol] 9.0 mmol/L Normal 3-11 [facility] ([place]) Comment on above: Performed By: #### 2 4323-8 #### [facility] [address] [place] [address] AST [Catalytic activity/Vol] 53 U/L High 10-41 [facility] ([place] Comment on above: Performed By: #### 2 4323-8 #### [facility] [address] [place] [address] Bilirubin [Mass/Vol] 0.9 mg/dL Normal 0.3-1.[address] [facility] ([place]) Comment on above: Performed By: #### 2 4323-8 #### [facility] [address] [place] [address] Calcium [Mass/Vol] 9.0 mg/dL Normal 8.5-10.5 [facility] ([place] Comment on above: Performed By: #### 2 4323-8 #### [address] [address] Chloride [Moles/Vol] 94 mmol/L Low 98-[address] [facility] ([place]) Comment on above: Performed By: #### 2 4323-8 #### [address] [address] CO2 [Moles/Vol] 26 mmol/L Normal 21-31 [facility] ([place]) Comment on above: Performed By: #### 2 432-8 #### [address] [address] Creatinine [Moles/Vol] 0.7 mg/dL Normal 0.4-1.0 [facility] ([place]) Comment on above: Performed By: #### 2 4322-8 #### [address] [address] Creatinine and Glomerular filtration rate.predicted panel (S/P/Bld) 111 mL/min Normal >60 [facility] ([place] Comment on above: Performed By: #### 2 4323-8 #### [address] [address] GFR/1.73 sq M.predicted among non-blacks MDRD (S/P/Bld) [Vol rate/Area] 92 mL/min/{1.73_m2} Normal >60 [facility] ([place]) Comment on above: Performed By: #### 2 4323-8 #### [address] [address] Globulin (S) [Mass/Vol] 4.2 g/dL High 1.9-3.9 [facility] ([place] Comment on above: Performed By: #### 2 4323-8 #### [facility] [address] [place] [address] Glucose [Mass/Vol] 329 mg/dL High 70-99 [facility] ([place] Comment on above: Performed By: #### 2 4323-8 #### [facility] [address] [place] [address] Potassium [Moles/Vol] 3.4 mmol/L Low 3.6-5.0 [facility] ([place]) Comment on above: Performed By: #### 2 4323-8 #### [facility] [address] [place] [address] Protein [Mass/Vol] 8.1 g/dL High 5.9-7.8 [facility] ([place] Comment on above: Performed By: #### 2 4323-8 #### [facility] [address] [place] [address] Sodium [Moles/Vol] 129 mmol/L Low 135-145 [facility] ([place] Comment on above: Performed By: #### 2 4323-8 #### [facility] [address] [place] [address] Urea nitrogen [Mass/Vol] 6 mg/dL Low 8-21 [facility] ([place] Comment on above: Performed By: #### 2 4323-8 #### [facility] [address] [place] [address] Creatinine and Glomerular fi ltration rate.predicted panel (S/P/Bld)on 12-30-2021 GFR/1.73 sq M.predicted MDRD (S/P/Bld) [Vol rate/Area] 111 mL/min/{1.73_m2} >60 [facility] Work Phone: Eosinophils Auto (Bld) [#/Vo l]on 12-30-2021 Eosinophils (Bld) [#/Vol] 0.2 10*3/uL 0.00-0.33 [facility] Work Phone: Eosinophils/100 WBC Auto (Bl d)on 12-30-2021 Eosinophils/100 WBC (Bld) 2.3 % 0.0-3.0 [facility] Work Phone: Erythrocyte distribution wid th Auto (RBC) [Ratio]on 12-30-2021 Erythrocyte distribution width (RBC) [Ratio] 14.6 % 10.9-14.3 [facility] Work Phone: Estimated glomerular filtrat ion rate (GFR) non- Americanon 12-30-2021 GFR/1.73 sq M.predicted among non-blacks MDRD (S/P/Bld) [Vol rate/Area] 92 mL/min/{1.73_m2} >60 [facility] Work Phone: Hematocrit Auto (Bld) [Volum e fraction]on 12-30-2021 Hematocrit (Bld) [Volume fraction] 40.6 % 36.0-44.0 [facility] Work Phone: Hemoglobin [Mass/volume] in Bloodon 12-30-2021 Hemoglobin (Bld) [Mass/Vol] 13.5 g/dL 12.0-15.0 [facility] Work Phone: Lymphocytes/100 WBC Auto (Bl d)on 12-30-2021 Lymphocytes/100 WBC (Bld) 36.9 % 24.0-44.0 [facility] Work Phone: MCH Auto (RBC) [Entitic mass ]on 12-30-2021 MCH (RBC) [Entitic mass] 25.8 pg 28.0-34.0 [facility] Work Phone: MCHC Auto (RBC) [Mass/Vol]on 12-30-2021 MCHC (RBC) [Mass/Vol] 33.1 g/dL 33.0-37.0 [facility] Work Phone: MCV (mean corpuscular volume ) determinationon 12-30-2021 MCV (RBC) [Entitic vol] 77.9 fL 80.0-100.0 [facility] Work Phone: Miscellaneous [place] 12-05 CPT Code Normal [facility] ([place]) Comment on above: Order Comment: HEP C VIRUS QUANT [id number] cpt [id number] Result Comment: INCO RRECT TEST Performed By: #### P TINR #### [address] [address] [place] Normal [facility] ([place]) Comment on above: Order Comment: HEP C VIRUS QUANT [id number] cpt [id number] Result Comment: INCO RRECT TEST Performed By: #### P TINR #### [facility] [address] [place] [address] Result [facility] ([place]) Comment on above: Order Comment: HEP C VIRUS QUANT [id number] cpt 25144 Result Comment: INCO RRECT TEST Performed By: #### P TINR #### [address] [address] Test Name Normal [facility] ([place]) Comment on above: Order Comment: HEP C VIRUS QUANT [id number] cpt 11277 Result Comment: INCO RRECT TEST Performed By: #### P TINR #### [facility] [address] [place] [address] Monocytes Auto (Bld) [#/Vol] on 12-30-2021 Monocytes (Bld) [#/Vol] 0.6 10*3/uL 0.20-0.70 [facility] Work Phone: Monocytes/100 WBC Auto (Bld) on 12-30-2021 Monocytes/100 WBC (Bld) 6.3 % 3.4-9.0 [facility] Work Phone: Neutrophils Auto (Bld) [#/Vo l]on 12-30-2021 Neutrophils (Bld) [#/Vol] 5.1 10*3/uL 1.83-8.70 [facility] Work Phone: Neutrophils/100 WBC Auto (Bl d)on 12-30-2021 Neutrophils/100 WBC (Bld) 53.5 % 40.0-74.0 [facility] Work Phone: Platelet mean volume Auto (B ld) [Entitic vol]on 12-30-2021 Platelet mean volume (Bld) [Entitic vol] 9.5 fL 7.4-10.4 [facility] Work Phone: Platelet poor plasma interna tional normalized ratio (INR) by coagulation assay (relaton 12-30-2021 INR Coag (PPP) [Relative time] 1.17 {INR} 0.80-2.00 [facility] Work Phone: Platelets Auto (Bld) [#/Vol] on 12-30-2021 Platelets (Bld) [#/Vol] 181 10*3/uL 150-450 [facility] Work Phone: Potassium [Moles/volume] in Serum or Plasmaon 12-30-2021 Potassium [Moles/Vol] 3.4 mmol/L 3.6-5.0 [facility] Work Phone: Prothrombin Time INR w/o Cou mon 12-30-2021 INR Coag (PPP) [Relative time] 1.17 {INR} Normal 0.80-2.00 [facility] [place] ([place]) Comment on above: Performed By: #### P TINR #### [facility] [address] [place] [address] PT Coag (Bld) [Time] 13.0 s High 9.5-12.[address] [facility] ([place]) Comment on above: Performed By: #### P TINR #### [facility] [address] [place] [address] RBC Auto (Bld) [#/Vol]on RBC (Bld) [#/Vol] 5.21 10*6/uL 4.00-4.90 [facility] Work Phone: Serum globulin measurement ( mass/volume)on 12-30-2021 Globulin (S) [Mass/Vol] 4.2 g/dL 1.9-3.9 [facility] Work Phone: Serum glucose measurement (m ass/volume)on 12-30-2021 Glucose [Mass/Vol] 329 mg/dL 70-99 [facility] Work Phone: Serum or plasma anion gap de termination (moles/volume)on 12-30-2021 Anion gap [Moles/Vol] 9.0 mmol/L 3-11 [facility] Work Phone: Serum or plasma calcium genna urement (mass/volume)on 12-30-2021 Calcium [Mass/Vol] 9.0 mg/dL 8.5-10.5 [facility] Work Phone: Serum or plasma creatinine m easurement (moles/volume)on 12-30-2021 Creatinine [Moles/Vol] 0.7 mg/dL 0.4-1.0 [facility] Work Phone: Serum or plasma sodium measu rement (moles/volume)on 12-30-2021 Sodium [Moles/Vol] 129 mmol/L 135-145 [facility] Work Phone: Serum or plasma urea nitroge n measurement (mass/volume)on 12-30-2021 Urea nitrogen [Mass/Vol] 6 mg/dL 8-21 [facility] Work Phone: Total protein bloodon 2021 Protein [Mass/Vol] 8.1 g/dL 5.9-7.8 [facility] Work Phone: US abdomen limitedon 022 US abdomen limited [facility] [address] [place] [address] Ultrasound Report Signed Patient: VIRGILIOVANITAAmrita Wong MR#: [id number] : 1980 Acct:[id number] Age/Sex: 41 / F Admit Date: 12/30/21 Loc: ANC Attending Dr: Maria Esther Fregoso RADIO REPAIRMAN Ordering Physician: Maria Esther Fregoso NP Date of Service: 12/30/21 Procedure(s): US abdomen limited Accession Number(s): [id number] cc: Maria Esther Fregoso NP HISTORY: Hepatitis [...] 9 Signed By: Hank Farrar MD 12/30/21719 Office Employee: KEVEN Normal [facility] [place] WBC Auto (Bld) [#/Vol]on WBC (Bld) [#/Vol] 9.6 10*3/uL 4.5-11.0 [facility] Work Phone: ED.PDOCon 10-19-2020 ED.PDOC VALDEMAR ESCOBAR TI R Female [id number] Attending provider: [facility] [id number] Fabiana Yuen 1980 40 DOS: 10/19/20 Hx/Exam [...] Date/Time:10/19/20 1354 Electronically Signed Date/Time: 10/19/20 1501 [facility] LOWER EXT DVT LEFTon 021 LOWER EXT DVT LEFT VALDEMAR ESCOBAR TI R Female [id number] Ordering physician: Fabiana Yuen LOC:ER [id number] Attending physician: 1980 40 DO S: 10/19/20 Acc#: [id number] Exam/Proc: LOWER EXT DVT LEFT Dept: ULTRASOUND [...] 10/19/20 1352 Dictated Date/time: 10/19/20 1352 CC: [facility] ED.PDOCon 09-09-2020 ED.PDOC VALDEMAR ESCOBAR TI R Female [id number] Attending provider: PRE ER ER [id number] Dallas Mendoza 1980 40 DOS: 09/09/20 Hx/Exam [...] MD Dictated Date/Time:09/09/201858 Electronically Signed Date/Time: 09/09/201939 [facility] Vital Signs Date Time Vital Sign Value Performing Clinician Facility 08-14-2024 13:48-0500 Body height 152.4 cm Noah Waller DPM Work Phone: [facility] 08-14-2024 13:48-0500 Body mass index (BMI) [Ratio] 36.13 kg/m2 Noah Waller DPM Work Phone: [facility] 08-14-2024 13:48-0500 Body weight 83.92 kg Noah Waller DPM Work Phone: [facility] 08-14-2024 13:48-0500 Respiratory rate 18 /min Noah Waller DPM Work Phone: [facility] 07-17-2024 15:37-0500 Body height 152.4 cm Noah Waller DPM Work Phone: [facility] 07-17-2024 15:37-0500 Body mass index (BMI) [Ratio] 36.13 kg/m2 Noah Waller DPM Work Phone: [facility] 07-17-2024 15:37-0500 Body weight 83.92 kg Noah Waller DPM Work Phone: [facility] 07-17-2024 15:37-0500 Respiratory rate 18 /min Noah Waller DPM Work Phone: [facility] 01-15-2024 08:37-0400 Diastolic blood pressure 80 mm[Hg] Pamela Dimare MEDICAL STAFF SPECIALIST.[employer] THRESHER Work Phone: [facility] Comment on above: right arm 01-15-2024 08:37-0400 Systolic blood pressure 123 mm[Hg] Pamela Dimare MEDICAL STAFF SPECIALIST.[employer] THRESHER Work Phone: [facility] Comment on above: right arm 01-15-2024 08:35-0400 Body height 152.4 cm Pamela Dimare MEDICAL STAFF SPECIALIST.[employer] THRESHER Work Phone: [facility] 01-15-2024 08:35-0400 Body mass index (BMI) [Ratio] 37.8 kg/m2 Pamela Dimare MEDICAL STAFF SPECIALIST.[employer] THRESHER Work Phone: [facility] 01-15-2024 08:35-0400 Body weight 87.8 kg Pamela Cleaning ROBINA.[employer] THRESHER Work Phone: [facility] 01-15-2024 08:35-0400 Heart rate 125 /min Pamela Cleaning MEDICAL STAFF SPECIALIST.[employer] THRESHER Work Phone: [facility] 01-15-2024 08:35-0400 SaO2% (BldA) [Mass fraction] 98 % Pamela Cleaning MEDICAL STAFF SPECIALIST.[employer] THRESHER Work Phone: [facility] Encounters Encounter Date Encounter Type Care [...] 2 diabetes mellitus without complication, unspecified whether assisted insulin use ([facility]); Onychocryptosis; Toe pain, right Start: 07-17-2024 End: 07-17-2024 ambulatory NOAH WALLER Not Available Start: 07-17-2024 End: 07-17-2024 Office outpatient new 30 minutes Noah Waller DPM Work Phone: [facility] Comment on above: Onychocryptosis (Juli chencho Dx); Toe pain, right; Abscess of toe, right; Type 2 diabetes mellitus without complication, unspecified whether assisted insulin use (CMS/HCC) Start: 07-17-2024 End: 07-17-2024 Bamboo flowsheet Noah Waller DPM Work Phone: [facility] Start: 07-17-2024 End: 07-17-2024 Bamboo flowsheet Noah A Sridhar DPM Work Phone: [facility] Start: 04-04-2024 End: 04-04-2024 Telephone encounter Pamela Dimroney MEDICAL STAFF SPECIALIST.[employer]HER Work Phone: Neurology Start: 04-03-2024 End: 04-03-2024 Telephone encounter Pamela Dimroney MEDICAL STAFF SPECIALIST.[employer]HER Work Phone: Neurology Comment on above: Medication Authoriza tion Start: 02-20-2024 Telephone encounter Madison Henderson MD Work Phone: Neurology Comment on above: Appointment Start: 02-01-2024 ambulatory Pamela Dimare MEDICAL STAFF SPECIALIST.[employer]HER Work Phone: Neurology Comment on above: Thank you Start: 02-01-2024 Telephone encounter Pamela Gurmeet are MEDICAL STAFF SPECIALIST.[employer]HER Work Phone: Neurology Comment on above: Opened In Error Start: 01-31-2024 ambulatory Pamela Dimare MEDICAL STAFF SPECIALIST.[employer]HER Work Phone: Neurology Comment on above: Nertec Start: 01-17-2024 Telephone encounter Pamela Gurmeet are MEDICAL STAFF SPECIALIST.[employer]HER Work Phone: Neurology Comment on above: Insurance Authorizat ion Start: 01-15-2024 End: 01-15-2024 ambulatory PAMELA DIMARE Facility:[facility] Start: 01-15-2024 End: 01-15-2024 Patient encounter procedure Pamela Hermila MEDICAL STAFF SPECIALIST.[employer] TH[employer]HER Work Phone: Neurology Comment on above: Intractable migraine with aura without status migrainosus (Primary Dx); Numbness and tingling; Diplopia; Headache after cough Start: 01-16-2022 End: 01-16-[address] Maya Facility:[facility] Start: 12-30-2021 End: 12-30-2021 ambulatory Maria Esther Fregoso Facility:[facility] Start: 12-30-2021 End: 12-30-2021 Patient encounter procedure KASANDRA Fregoso Work Phone: [facility] Start: 01-24-2018 End: 01-24-2018 ambulatory UNKNOWN PROVIDER Facility:[facility] Start: 09-05-2013 End: 09-05-2013 Telephone encounter Phil [...] Vaccine (3 - Td or Tdap) [facility] Start: 12-27-2026 Diabetes Screening Diabetes Screenin g [facility] Start: 04-06-2024 Influenza vaccination [facility] Start: 2024 Lipid panel Lipid Screening [facility] Start: 2024 Screening for malign ant neoplasm of colon [facility] Start: 02-25-2024 End: 02-25-2024 ambulatory 02/25/2024 12:30 PM EDT Procedure Neurology [address] [place] [address] Numbness and tingling [R20.0, R20.2] Neurology Comment on above: Numbness and tinglin g [R20.0, R20.2] Start: 02-15-2024 End: 02-15-2024 Patient encounter procedure 02/15/2024 1:30 PM EDT Appointment [facility] [address] [place] [address] Headache, chronic, new features or increased frequency [facility] Comment on above: Headache, chronic, n ew features or increased frequency Start: 01-28-2024 End: 01-28-2024 Patient encounter procedure 01/28/2024 1:00 PM EDT Office Visit [facility] [address] [place] [id number] Renetta Rivero, OD [address] [place], [place] [address] My vision is getting worse tung at night. Ophthalmology Comment on above: My vision is getting worse tung at night. Start: 04-06-2023 Covid-19 Vaccine ( season) Covid-19 Vaccine ( season) [facility] Start: 04-06-2021 Influenza vaccination INFLUENZ A (Season Ended) [facility] Start: 06-11-2020 Urine microalbumin profile DTAP,TDAP,TD (2 - Td or Tdap) [facility] Start: 2019 Mammography MAMMOGRAM [facility] Start: 2019 Screening for malign ant neoplasm of breast Mammogram Screening [facility] Start: 11-22-2014 PAP TESTING PAP TESTING [facility] Start: 11-22-2014 Screening for malign ant neoplasm of cervix Cervical Cancer Screening [facility] Start: 05-20-2013 HPV TESTING HPV TESTING [facility] Start: 1998 Hepatitis B Vaccine (1 of 3 - 19+ 3-dose series) Hepatitis B Vaccine (1 of 3 - 19+ 3-dose series) [facility] Start: 1997 Anxiety Screening Anxiety Screening [facility] Start: 1997 Depression Screening Depression Scre ening [facility] Start: 1997 HEPATITIS C SCREENING HEPATITIS C SC [facility] Start: 1997 Hepatitis C screening Hepatitis C [facility] Start: 1991 Adult depression screening assessment [facility] Start: 1985 Pneumococcal vaccination Pneum ococcal Vaccine (1 of 2 - PCV) [facility] End: 01-14-2025 EMG(NEURO/NI) EMG(NEURO/NI) EMG Routine Numbness and tingling 1 Occurrences starting 01/15/2024 until 01/14/2025 [facility] Comment on above: 1 Occurrences starti ng 01/15/2024 until 01/14/2025 Hepatitis B virus surface Ag [Units/volume] in Serum [facility] Work Phone: Hepatitis C virus Ab [Presence] in Serum [facility] Work Phone: Hepatitis C virus genotype [Identifier] in Serum or Plasma by PARIS with probe detection [facility] Work Phone: Hepatitis C virus RN A [Log #/volume] (viral load) in Unspecified specimen by PARIS with probe detection [facility] Work Phone: Hepatitis C virus RN A [log units/volume] (viral load) in Unspecified specimen by PARIS with probe detection [facility] Work Phone: HIV 1+2 Ab [Presence ] in Unspecified specimen by Immunoassay [facility] Work Phone: Laboratory data interpretation [facility] Work Phone: End: 02-13-2025 MR Brain WO and W contrast IV MRI BRAIN WO/W IVCON Radiology Routine Intractable migraine with aura without status migrainosus 1 Occurrences starting 01/15/2024 until 02/13/2025 [facility] Work Phone: Comment on above: 1 Occurrences starti ng 01/15/2024 until 02/13/2025 Immunizations Immunization Date Immunization Notes Care Provider Kaitlynn hernandez 05-03-2022 influenza virus vacc ine, unspecified formulation Pamela Cleaning APRN.CNP Work Phone: [facility] 06-12-2013 influenza virus vacc ine, unspecified formulation Phil Hurd DO Work Phone: [facility] 08-02-2012 influenza virus vacc ine, unspecified formulation Phil Hurd DO Work Phone: [facility] 06-11-2010 tetanus toxoid, redu thiago diphtheria toxoid, and acellular pertussis vaccine, adsorbed Phil Hurd DO Work Phone: [facility] Payers Date Payer Category Payer Private Health Insurance [facility] MEDICAID [id number] 2022 Medicaid [facility] MEDICAID [facility] MEDICAID [facility] [id number] 2022-Present [phone] [address] [place] [address] Medicaid [id number] 2022 Medicaid [id number] 2021 Medicaid [id number] 2021 Self-pay [id number] 2014 Medicaid [id number] 2013 Medicaid [employer] [id number] 2013-2016 Medicaid [id number] 2011 Private Health Insurance [employer] A ETNA CHOICE POS II [id number] 2011-2016 POS [id number] 2008 Unknown [id number] 1979 Unknown [id number] 1980 Unknown [id number] 1979 Unknown [id number] Unknown [id number] Unknown [id number] Social History Date Type Detail Facility Start: 08-18-2013 Tobacco smoking status NHIS Current every day smoker [facility] Work Phone: History of tobacco use Cigarette Smoker [facility] Work Phone: Start: 08-18-2013 End: 01-15-2024 Cigarettes smoked current (pack per day) - Reported [facility] Start: 08-18-2013 Tobacco use and exposure [facility] Work Phone: Start: 08-18-2013 End: 03-19-2022 Alcohol intake Current drinker of alcohol (finding) [facility] Start: 08-18-2013 Tobacco Comment 3-4 ciggarettes daily [facility] Start: 1980 End: 1980 Sex Assigned At Not on file [facility] Start: 1980 Sex Assigned At Female [facility] Work Phone: Start: 01-12-2024 End: 01-15-2024 Patient Health Questionnaire 2 item (PHQ-2) [Reported] [facility] Adult Depression Screening Assessment 6 [facility] Start: 01-09-2024 Gender identity Identifies as female gender (finding) [facility] Start: 01-09-2024 Sexual orientation Heterosexual (finding) [facility] Tobacco smoking stat us MEIS Tobacco smoking consumption unknown [facility] Start: 07-17-2024 Tobacco smoking status NHIS Ex-smoker [facility] History of tobacco use Current smoker [facility] Start: 07-17-2024 End: 08-14-2024 Alcoholic beverage intake Defer [facility] Procedure Code Equipment Code Equipment Origin al Text Equipment Identifier Dates two times a day. [id number] Start: 12-28-2023 Clinical Notes 08-12-2013 to 07-17-2024 [...] History: Past Medical History: Diagnosis Date Diabetes ([facility]) Medications: Current Outpatient Medications: amitriptyline (Elavil) [...] cool tibia to toes b/l NEURO: 5.07 [place] Keven monofilament test intact to digits and forefoot bilaterally 125Hz tuning fork diminished to 1st MPJ bilaterally ORTHO: Ankle ROM less than 10 degrees b/l. Positive pain on palpation to right hallux ASSESSMENT 1. Onychocryptosis 2. Toe pain, right 3. Abscess of toe, right 4. Type 2 diabetes mellitus without complication, unspecified whether assisted insulin use ([facility]) PLAN Patient educated today on proper [...] Noah Waller DPM documented in this encounter [facility] 04-04-2024 Telephone encounter Note Liam Escobar (Vicente: [id number]) - [id number] AJOVY (fremanezumab-vfrm) injection 225MG/1.5ML auto-injectors status: CROW Response - Approved Created: April 04, 2024 Sent: April 04, 2024 T [facility] 04-04-2024 Miscellaneous Notes Liam Escobar (Vicente: [id number]) - [id number] AJOVY (fremanezumab-vfrm) injection 225MG/1.5ML auto-injectors status: PA Response - Approved Created: April 04, 2024 Sent: April 04, 2024 documented in this encounter [facility] 04-03-2024 Telephone encounter Note Liam Escobar (Vicente: [id number]) - [id number] AJOVY (fremanezumab-vfrm) injection 225MG/1.5ML auto-injectors status: PA Request Created: April 03, 2024 Sent: April 03, 2024 [facility] 04-03-2024 Miscellaneous Notes Liam Escobar (Vicente: [id number]) - [id number] AJOVY (fremanezumab-vfrm) injection 225MG/1.5ML auto-injectors status: PA Request Created: April 03, 2024 Sent: April 03, 2024 documented in this encounter [facility] 02-21-2024 Telephone encounter Note Patient aware of cancellation, wants to reschedule on her own, given phone number [facility] 02-21-2024 Miscellaneous Notes Patient aware of cancellation, wants to reschedule on her own, given phone number 2nd attempt. Left messge on about EMG cancellation 1st attempt to reach about cancellation and rescheduling options for her EMG appointment, left vm and sent [employer] message. Lakshmi Rogelio documented in this encounter [facility] 02-21-2024 Telephone encounter Note 2nd attempt. Left messge on VM about EMG cancellation [facility] 02-20-2024 Telephone encounter Note 1st attempt to reach about cancellation and rescheduling options for her EMG appointment, left vm and sent MyChart message. Lakshmi Mercado [facility] 01-31-2024 Telephone encounter Note See reply to you. [facility] 01-31-2024 Miscellaneous Notes See reply to you. documented in this encounter [facility] 01-17-2024 Telephone encounter Note (Vicente: [id number]) - [id number] Nurtec 75MG dispersible tablets Status: PA Request Created: January 16, 2024 Sent: January 17, 2024 [facility] 01-17-2024 Miscellaneous Notes (Vicente: [id number]) - [id number] Nurtec 75MG dispersible tablets Status: PA Request Created: January 16, 2024 Sent: January 17, 2024 A prior authorization has been started for by the pharmacy. To submit the Prior Authorization, please follow the instructions below 1. Go to go[employer]/login & click Enter a Vicente 2. Enter the patient s last name, date of and the vicente Vicente: [id number] 3. Complete the PA & Click Send to Plan for approval Prior authorization fax has been scanned to chart for further review. documented in this encounter [facility] 01-17-2024 Telephone encounter Note A prior authorization has been started for by the pharmacy. To submit the Prior Authorization, please follow the instructions below 1. Go to go[employer]/login & click Enter a Vicente 2. Enter the patient s last name, date of and the vicente Vicente: [id number] 3. Complete the PA & Click Send to Plan for approval Prior authorization fax has been scanned to chart for further review. [facility] 01-15-2024 Instructions Pamela Cleaning APRN.[employer] THRESHER - 01/15/2024 9:20 AM EDT Preventative: Nurtec [...] prior to MRI. EMG You can call [phone] to schedule testing and any follow up [...] Feverfew: Feverfew is a common garden herb grindstone to [place] and popular in [place] [...] pepperoni, Pickled mccarty Pods of broad kingsley (Hong Konger beans, Mexican pea pods, Armenian (nikki) beans, byrnes and navy beans Ripe [...] much light. These can be obtained at [employer] or [employer]: see list above. 2. Limit use of acute treatments (kmsg-zrv-flkozem medications, triptans, etc.) to no more than [...] and quiet environment. Relax and reduce stress. Jvrakts5Mkprz is a free azael that can instruct you on some simple relaxtion and breathing techniques. Http://[employer] is a free website that provides teaching [...] and will be handling your phone calls, [employer] Messages and inquiries, if any. Unless explicitly told otherwise at the time of your office visit, your study results and ensuing treatment plans will be released via [employer] and discussed during your follow-up appointment. [employer]: Please ask the schedulers to give you an activation code. The main way of communication is by [employer] rather than phone lines, so if you have not signed up, please do so. [employer] is also the way that you can review your labs and testing. We are not able to contact everyone to tell them results are normal. If you do not hear back from us regarding testing you have had, it should be considered normal or within normal range. If you have any questions about the results, you are free to message us. [employer] is meant for simple questions regarding medications, possible side effects, or other simple straight forward questions in limited sentences, rather than multiple paragraphs of discussion. [employer] is not meant for, or efficient for [...] do not comment on most testing on [employer] in a message or commentary unless there [...] this process. documented in this encounter [facility] 01-15-2024 History of Presen t illness Narrative Images from the original note were not included. [facility] for General Neurology New Patient [...] point injections and took medications. Moved to [place] but has since returned. States she did not receive treatment in [place] and symptoms got worse. Voices that she [...] depression. States that she saw neurologist in [place] and they wanted to do Botox and [...] jerk and symmetric Coordination: Finger-to- nose-finger and actv-ro-ppjq intact bilaterally. No ataxia of arms. No [...] which included preparing to see the patient, [id number] patient care, completing clinical documentation, obtaining and/or reviewing separately obtained history, performing a medically appropriate examination, counseling and educating the patient/family/caregiver, and ordering medications, tests, or procedures. Pamela Cleaning APRN.[facility] General Neurology [address] [place] [address]. [phone] Appointment: [phone] 1. This office note has been dictated [...] headache?: yes documented in this encounter [facility] 01-15-2024 Note HNO ID: [id number] Author: PAMELA CLEANING APRN.CNP Service: ? Author Type: Nurse Practitioner Type: Progress Notes Filed: 01/16/2024 06:34 Note Text: [facility] for General Neurology New Patient [...] point injections and took medications. Moved to [place] but has since returned. States she did not receive treatment in [place] and symptoms got worse. Voices that she [...] depression. States that she saw neurologist in [place] and they wanted to do Botox and [...] afternoon. amitriptyline (ELAVIL) (more content not included)... [facility] 09-05-2013 Miscellaneous Notes Called pt. Has improved. [...] the leg. documented in this encounter [facility] 08-12-2013 History of Past i llness Narrative Problem Noted Date Resolved Date Tear of medial meniscus of knee 08/12/2013 10/13/2013 Cervical pain (neck) 10/16/2011 12/20/2012 Obesity in , antepartum 04/01/2010 10/16/2011 Gestational diabetes 12/21/2009 11/27/2011 High-risk 12/13/2009 10/16/2011 documented as of this encounter (statuses as of 12/01/2020) [facility]: [facility] note* Diagnosis Intractable migraine with aura without status migrainosus- Primary Migraine with aura, with intractable migraine, so stated, without mention of status migrainosus Numbness and tingling Disturbance of skin sensation Diplopia Headache after cough [facility] Intractable migraine with aura without status migrainosus- Primary Migraine with aura, with intractable migraine, so stated, without mention of status migrainosus [facility] Onychocryptosis- Primary Ingrowing nail Toe pain, right Pain in soft tissues of limb Abscess of toe, right Type 2 diabetes mellitus without complication, unspecified whether terminal gauger supervisor insulin use (CMS/HCC) [facility] Diagnosis Abscess of toe, right- Primary Type 2 diabetes mellitus without complication, unspecified whether terminal gauger supervisor insulin use (CMS/HCC) Onychocryptosis Ingrowing nail Toe [...] History: Past Medical History: Diagnosis Date Diabetes ([facility]) Medications: Current Outpatient Medications: amitriptyline (Elavil) [...] 2 diabetes mellitus without complication, unspecified whether assisted insulin use ([facility]) 3. Onychocryptosis 4. Toe pain, right [...] FoundDocuments on File Type Date Recorded Patient Deputy Chief Executive Expl anation Advance Directive(s) Advance Directive(s) 11/24/2016 2:49 PM Advance Directive(s) 12/03/2015 6:17 PM Chief Complaint and Reason for Visit Chief Complaint LAB,US Reason for Referral Specialty Diagnoses / Procedures Referred By Steve pugh Referred To Contact Diagnoses Intractable migraine with aura without status migrainosus Pamela Cleaning APRN.BROOMCORN THRESHER [address] [id number] Referral ID Status Reason Start Date Expiration Date Visits Re quested Visits Authorized [id number] Closed 1 1 Specialty Diagnoses / Procedures Referred By Steve pugh Referred To Contact [facility] Diagnoses Numbness and tingling Procedures EMG(NEURO/NI) NERVE CONDUCTION STUDIES 9-10 STUDIES Pamela Cleaning APRN.BROOMCORN THRESHER [address] [id number] Neu[facility] [place] [address] [place] [address] Referral ID Status Reason Start Date Expiration Date Visits Requested Visits Authorized [id number] Authorized Auto-Generat ed Referral 01/15/2024 01/14/2025 1 1 Specialty Diagnoses / Procedures Referred By Steve pugh Referred To Contact [facility] IMAGING Diagnoses Intractable migraine with aura without status migrainosus Procedures MRI BRAIN WO/W IVCON MRI BRAIN BRAIN STEM W/O W/CONTRAST MATERIAL Pamela Cleaning APRN.BROOMCORN THRESHER [address] [place] [address] Mr [facility] [place] [address] Referral ID Status Reason Start Date Expiration Date Visits Requested Visits Authorized [id number] Pending Review Auto-Generat ed Referral 01/15/2024 02/13/2025 1 1 Referral ID Status Reason Start Date Expiration Date V isits Requested Visits Authorized [id number] Pending Review 1 1 Additional Source Comments INFORMATION SOURCE (unrecogn ized section and content) DATE CREATED AUTHOR 10/24/2020 [facility] DATE CREATED AUTHOR AUTHOR'S ORGANIZ ATION 08/23/2021 [facility] DATE CREATED AUTHOR AUTHOR'S ORGANIZ ATION 01/21/2022 [facility] ([place]) DATE CREATED AUTHOR AUTHOR'S ORGANIZ ATION 02/24/2024 [facility] DATE CREATED AUTHOR AUTHOR'S ORGANIZ ATION 08/19/2024 [facility] EPIC Source Comments (unrecognize d section and content) In the event this informatio n is protected by the Federal Confidentiality of Alcohol and Drug Abuse Patient Records regulations: The Federal rules restrict any use of the information to criminally investigate or prosecute any alcohol or drug abuse patient.[facility] the event this information is protected by the Federal Confidentiality of Alcohol and Drug Abuse Patient Records regulations: The Federal rules restrict any use of the information to criminally investigate or prosecute any alcohol or drug abuse patient.[facility] the event this information is protected by the Federal Confidentiality of Alcohol and Drug Abuse Patient Records regulations: The Federal rules restrict any use of the information to criminally investigate or prosecute any alcohol or drug abuse patient.[facility] the event this information is protected by the Federal Confidentiality of Alcohol and Drug Abuse Patient Records regulations: The Federal rules restrict any use of the information to criminally investigate or prosecute any alcohol or drug abuse patient.[facility] the event this information is protected by the Federal Confidentiality of Alcohol and Drug Abuse Patient Records regulations: The Federal rules restrict any use of the information to criminally investigate or prosecute any alcohol or drug abuse patient.[facility] the event this information is protected by the Federal Confidentiality of Alcohol and Drug Abuse Patient Records regulations: The Federal rules restrict any use of the information to criminally investigate or prosecute any alcohol or drug abuse patient.[facility] the event this information is protected by the Federal Confidentiality of Alcohol and Drug Abuse Patient Records regulations: The Federal rules restrict any use of the information to criminally investigate or prosecute any alcohol or drug abuse patient.[facility] the event this information is protected by the Federal Confidentiality of Alcohol and Drug Abuse Patient Records regulations: The Federal rules restrict any use of the information to criminally investigate or prosecute any alcohol or drug abuse patient.[facility] the event this information is protected by the Federal Confidentiality of Alcohol and Drug Abuse Patient Records regulations: The Federal rules restrict any use of the information to criminally investigate or prosecute any alcohol or drug abuse patient.[facility] Reason for Visit (unrecogniz ed section [...] Care Teams (unrecognized sec tion and content) Fruit Pitter Relationship Specialty Start Date End Date Isabelle Moreno APRN.BROOMCORN THRESHER [address] [id number], [place] [address] PCP - General 05/30/23 Laurie Muir, ROBINA [address] [place] [address] Referring Family Medicine 05/30/23 Laurie Muir, ROBINA [address] [place] [address] Referring Family Medicine 01/05/24 Fruit Pitter Relationship Specialty Start Date End Date Isabelle Moreno APRN.BROOMCORN THRESHER [address] [id number] [place] [address] PCP - General 05/30/23 Laurie Muir APRN [address] [place] [address] Referring Family Medicine 05/30/23 Laurie Muir APRN [address] [place] [address] Referring Family Medicine 01/05/24 Fruit Pitter Relationship Specialty Start Date End Date Isabelle Moreno APRN.BROOMCORN THRESHER [address] [id number] [place] [address] PCP - General 05/30/23 Laurie Muir APRN [address] [place] [address] Referring Family Medicine 05/30/23 Laurie Muir APRN [address] [place] [address] Referring Family Medicine 01/05/24 Fruit Pitter Relationship Specialty Start Date End Date Isabelle Moreno APRN.BROOMCORN THRESHER [address] [id number] [place] [address] PCP - General 05/30/23 Laurie Muir APRN [address] [place] [address] Referring Family Medicine 05/30/23 Laurie Muir APRN [address] [place] [address] Referring Family Medicine 01/05/24 Fruit Pitter Relationship Specialty Start Date End Date Isabelle Moreno APRN.BROOMCORN THRESHER [address] [id number] [place] [address] PCP - General 05/30/23 Laurie Muir APRN [address] [place], [place] [id number] Referring Family Medicine 05/30/23 Laurie Muir APRN [address] [place] [address] Referring Family Medicine 01/05/24 Fruit Pitter Relationship Specialty Start Date End Date Isabelle Moreno APRN.BROOMCORN THRESHER [address] [id number] [place] [address] PCP - General 05/30/23 Laurie Muir APRN [address] [place] [address] Referring Family Medicine 05/30/23 Laurie Muir APRN [address] [place] [address] Referring Family Medicine 01/05/24 Fruit Pitter Relationship Specialty Start Date End Date Isabelle Moreno APRN.BROOMCORN THRESHER [address] [id number] [place] [address] PCP - General 05/30/23 Laurie Muir APRN [address] [place] [address] Referring Family Medicine 05/30/23 Laurie Muir APRN [address] [place], [place] [address] Referring Family Medicine 01/05/24 Fruit Pitter Relationship Specialty Start Date End Date Isabelle Moreno APRN.BROOMCORN THRESHER [address] [id number] [place], [place] [address] PCP - General 05/30/23 Laurie Muir APRN [address] [place] [address] Referring Family [facility] 05/30/23 Laurie Muir APRN [address] [place], [place] [address] Referring Family Medicine 01/05/24 FOR RECORDS PERTAINING [...] ON THE PRIMARY CLINICAL RECORDS. [facility]. provides no warranty or guarantee of the accuracy or completeness of information in this document.
[2025-03-13 18:57] VITALS: BP 118/86; PULSE 94; TEMP 36.8; O2SAT 99; BMI 32.8
--- NOTE | 2025-03-13 19:42 | XR_ITS ---
The [address] [address] Patient Name: LIAM ESCOBAR MRN: [id number] date: 1980 Sex: F Assigned Patient Location: ER Current Patient Location: ER Accession/Order Number: [id number] Exam Date: 03/13/2025 20:31 Report Date: 03/13/2025 20:32 At the request of: LEI HEREDIA DO Procedure: XR shoulder LT min 2V LEFT SHOULDER - - 3 views CLINICAL HISTORY: left shoulder injury COMPARISON: None FINDINGS: No fracture dislocation. Mild degenerative change. Soft tissues unremarkable. Left lung apex is clear. XR/XR shoulder LT min 2V IMPRESSION: No acute bony process. Impression dictated by: Lowell Hall M.D. 03/13/2025 8:32 PM Dictation Location: [place] [address] Electronically authenticated by: [id number] Y Date: 03/13/2025 20:32
--- NOTE | 2025-03-13 19:42 | CT_ITS ---
The [address] [address] Patient Name: LIAM ESCOBAR MRN: [id number] date: 1980 Sex: F Assigned Patient Location: ER Current Patient Location: Accession/Order Number: [id number] Exam Date: 03/13/2025 20:33 Report Date: 03/13/2025 20:35 At the request of: LEI HEREDIA DO Procedure: CT orbit BI wo con CT ORBITS WITHOUT INTRAVENOUS CONTRAST: CLINICAL HISTORY: Left periorbital ecchymosis COMPARISON: None TECHNIQUE: Spiral images were obtained through the orbits without contrast this CT exam was performed using one or more following dose reduction techniques: Automated exposure control, adjustment of the mA and/or kV according to patient size, or use of iterative reconstruction technique. FINDINGS: Negative for acute orbital fracture or traumatic globe injury. Intraconal and extraconal fat planes appear unremarkable. Adnexa are unremarkable.. Minimal left periorbital soft tissue swelling/contusion. CT/CT orbit BI wo con IMPRESSION: Negative for fracture. Impression dictated by: Lowell Hall M.D. 03/13/2025 8:35 PM Dictation Location: [place] [address] Electronically authenticated by: [id number] Y Date: 03/13/2025 20:35
--- NOTE | 2025-03-13 21:55 | ED.GENADUL1 ---
HPI HPI - General Adult General Chief complaint: Fall Stated complaint: fall Time Seen by Provider: 03/13/25 19:10 Source: patient Mode of arrival: walk-in Limitations: no limitations History of Present Illness HPI narrative: Patient is a healthy 44-year-old female presenting to the emergency department for concerns of a black eye and left shoulder pain. Patient was drinking alcohol in [facility] at a bar when she tripped, fell, and landed on her left side. She states she has a black eye, that has gotten worse over the last few days. She denies any changes in her vision or double vision. No nausea or vomiting. No headache. No photophobia. She did not lose consciousness at that time. She is not on anticoagulation. She does have some pain in the left shoulder as well. No number/tingling/weakness in the extremities. No chest pain or shortness of breath. Related Data Home Medications ?Medication ?Instructions ?Recorded ?Confirmed Wellbutrin PO 07/11/24 cariprazine 1.5 mg capsule 1.5 mg PO DAILY 07/11/24 03/13/25 (Vraylar) empagliflozin 25 mg tablet 25 mg PO DAILY 07/11/24 03/13/25 (Jardiance) metformin 500 mg tablet 500 mg PO BID 07/11/24 03/13/25 gabapentin 300 mg capsule 300 mg PO BID 03/13/25 03/13/25 Previous Rx's ?Medication ?Instructions ?Recorded ibuprofen 800 mg tablet 800 mg PO Q8H PRN pain #30 tabs 07/11/24 Allergies Allergy/AdvReac Type Severity Reaction Status Date / Time amoxicillin (From Amoxil) Allergy Anaphylaxis Verified 03/13/25 19:02 codeine Allergy Hives Verified 03/13/25 19:02 Opioid HPI Opioid Management Most Recent Opioid Data: Last Pain Scale 8 Today, 18:57 Review of Systems ROS Status of ROS 10 or more systems reviewed and unremarkable except as noted in history and below PFSH PFSH Social History Little interest or pleasure in doing things: not at all Feeling down, depressed, or hopeless: not at all Exam Narrative Exam Narrative: CONSTITUTIONAL: Well-appearing, answering questions and following commands appropriately SKIN: Was warm and dry. EYES: Mild left periorbital ecchymosis. PERRLA. EOMI. No scleral injection. No nystagmus. No ptosis. EARS, NOSE, THROAT: Moist oral mucosa. RESPIRATORY: Clear to auscultation bilaterally, no wheezes, crackles, or stridor, no use of accessory muscles CARDIOVASCULAR: Normal rate and regular rhythm. There is no S3, S4, murmur, rub. 2+ radial pulses bilaterally GASTROINTESTINAL: Abdomen is nondistended. MUSCULOSKELETAL: Head is atraumatic and normocephalic. No C-spine tenderness. Mild tenderness palpation throughout the left shoulder joint. Limited range of motion secondary to pain. NEUROLOGIC: Patient is awake and alert. Sensation intact to light touch in the V1/V2/V3 distribution of the face. Constitutional Vital Signs, click to edit/add: Last Vital Signs Temp 98.3 F 03/13/25 18:57 Pulse 94 H 03/13/25 18:57 Resp 16 03/13/25 18:57 BP 118/86 03/13/25 18:57 Pulse Ox 99 03/13/25 18:57 Course Vital Signs Vital signs: Vital Signs Temperature 98.3 F 03/13/25 18:57 Pulse Rate 94 H 03/13/25 18:57 Respiratory Rate 16 03/13/25 18:57 Blood Pressure 118/86 03/13/25 18:57 Pulse Oximetry 99 03/13/25 18:57 Temperature 98.3 F 03/13/25 18:57 Pulse Rate 94 H 03/13/25 18:57 Respiratory Rate 16 03/13/25 18:57 Blood Pressure 118/86 03/13/25 18:57 Pulse Oximetry 99 03/13/25 18:57 Medical Decision Making [facility] Narrative Medical decision making narrative: Patient is a healthy 44-year-old female presenting to the emergency department with left periorbital ecchymosis and left shoulder pain after a mechanical fall 4 days ago. Her vital signs are within normal limits. She is afebrile and hemodynamically stable. Examination as noted above. Differential diagnosis includes left orbital contusion, shoulder contusion, possible humerus fracture. The left upper extremity is neurovascularly intact distal to the injury. She has no evidence of entrapment of her extraocular muscles. Low concern for serious blowout fracture. Nonetheless, CT orbits were ordered including a left shoulder x-ray. Left shoulder x-ray independently reviewed/interpreted by myself which showed no osseous abnormalities. CT orbits independently reviewed/interpreted by myself demonstrated no evidence of orbital fracture. I do believe the patient is stable for discharge at this time. They were instructed to follow up with her PCP as needed. Return precautions were given including any new or worsening symptoms. Patient understands and agrees to the plan. Differential Diagnosis Differential Diagnosis: Orbital contusion, shoulder contusion, humerus fracture Imaging Data CT scan - head: Radiologist's impression: ITS Impressions Orbit CT 03/13/25 19:42 IMPRESSION: Negative for fracture. Impression dictated by: Lowell Hall M.D. 03/13/2025 8:35 PM Dictation Location: [facility] Electronically authenticated by: [id number] Y Date: 03/13/2025 20:35 Shoulder X-Ray 03/13/25 19:42 IMPRESSION: No acute bony process. Impression dictated by: Lowell Hall M.D. 03/13/2025 8:32 PM Dictation Location: [employer] Electronically authenticated by: [id number] Y Date: 03/13/2025 20:32 Discharge Plan Discharge Chief Complaint: Fall Clinical Impression: Contusion of left orbit Qualifiers: Encounter type: initial encounter Qualified Code(s): S05.12XA - Contusion of eyeball and orbital tissues, left eye, initial encounter Patient Disposition: Home, Self-Care Time of Disposition Decision: 20:58 Condition: Good Prescriptions / Home Meds: No Action gabapentin 300 mg capsule 300 mg PO BID metformin 500 mg tablet 500 mg PO BID Jardiance 25 mg tablet 25 mg PO DAILY Vraylar 1.5 mg capsule 1.5 mg PO DAILY Patient Comments: uncertain of dose Wellbutrin PO Rx Instructions: 150MG in the morning, 100mg at night ibuprofen 800 mg tablet 800 mg PO Q8H PRN (Reason: pain) Qty: 30 0RF Print Language: Czech Instructions: Black Eye (ED) Referrals: RHONA GUERRA [Primary Care Provider, Family Practice] - 1 week
[2025-03-13 22:00] VITALS: BP 131/92; PULSE 87; O2SAT 99
== END 2025-03-13 22:02 | disposition home or self-care (01) ==
PROVIDERS: Emergency Provider Student in an Organized Health Care Education/Training Program; PCP Nurse Practitioner Family
DX: S05.12XA Contusion of eyeball and orbital tissues, left eye, initial encounter (principal); W01.10XA Fall on same level from slipping, tripping and stumbling with subsequent striking against unspecified object, initial encounter; M25.512 Pain in left shoulder
CPT/HCPCS: 70480; 73030; 99284